=== PATIENT | female | born 1940 | race Caucasian/White ===

== ENCOUNTER 2017-03-20 22:34 | Emergency (ER) | payer MEDICARE, MEDICAID ==
[2017-03-20 22:56] VITALS: BP 143/71; PULSE 79; RESP 16; TEMP 98.7; O2SAT 100
[2017-03-20] MEDS ORDERED: Fluorescein 1 mg Ophthalmic Strip ONE (23:12)
--- NOTE | 2017-03-20 23:36 | ED PDOC ---
HPI: General Adult Time Seen by Provider: 03/20/17 23:04 Chief Complaint (Nursing): Eye Problem History Per: Patient, Family (daughter) Additional Complaint(s): As per daughter, pt has been c/o L eye pain and redness. States that pt. has had multiple surgeries to the L eye due to glaucoma and calcium deposits. States that 2 days ago pt. was rubbing her L eye then developed the pain. States that her vision is normally blurry and is slightly more blurry now. Denies head injury, complete visual loss. Past Medical History Reviewed: Historical Data, Nursing Documentation, Vital Signs Vital Signs: Last Vital Signs Temp 98.7 F 03/20/17 22:54 Pulse 79 03/20/17 22:54 Resp 16 03/20/17 22:54 BP 143/71 03/20/17 22:54 Pulse Ox 100 03/21/17 01:44 - Family History Family History: States: No Known Family Hx - Home Medications Home Medications: Ambulatory Orders Medication Instructions Recorded Tobramycin 0.3% [Tobrex] 1 appl OS Q8 #1 tube 03/21/17 - Allergies Allergies/Adverse Reactions: Allergies Allergy/AdvReac Type Severity Reaction Status Date / Time No Known Allergies Allergy Verified 03/20/17 22:54 Review of Systems ROS Statement: Except As Marked, All Systems Reviewed And Found Negative Eyes: Positive for: Pain, Conjunctivae Inflammation Physical Exam - Physical Exam Appears: Positive for: Well, Non-toxic, No Acute Distress Skin: Positive for: Normal Color, Warm. Negative for: Rash Eye Exam: Positive for: EOMI, PERRL, Conjunctival injection (L eye), Other (L white FB noted at 9 o'clock position; complete flouroscein uptake at that location). Negative for: Periorbital swelling, Periorbital tenderness - ECG O2 Sat by Pulse Oximetry: 100 - Progress ED Course And Treament: CT orbits w/o contrast: No acute findings. [address] Valiente [phone]. 0030 Tobrex eye ointment applied to L eye. [address] Tejada who agrees with care. Disposition - Clinical Impression Clinical Impression: Corneal abrasion - Patient ED Disposition Is Patient to be Admitted: No - Disposition Disposition: Routine/Home Disposition Time: 00:48 Condition: STABLE Additional Instructions: FOLLOW UP WITH DR. REYNA FOR FURTHER EVALUATION. APPLY TOBREX EYE OINTMENT Q8H X 7 DAYS Prescriptions: Tobramycin 0.3% [Tobrex] 1 appl OS Q8 #1 tube Instructions: Corneal Abrasion (ED) Forms: [facility] (Ecuadorean)
--- NOTE | 2017-03-20 23:53 | CT ---
EXAM: CT Orbits Without Intravenous Contrast CLINICAL HISTORY: 76 years old, female; Signs and symptoms; Visual changes or disturbances; Discomfort; Prior surgery; Surgery date: 6+ months; Surgery type: Multiple left eye corneal surgeries; Additional info: L eye with corneal abrasion TECHNIQUE: Axial computed tomography images of the orbits without intravenous contrast. All CT scans at this facility use one or more dose reduction techniques, viz.: automated exposure control; ma/kV adjustment per patient size (including targeted exams where dose is matched to indication; i.e. head); or iterative reconstruction technique. Coronal and sagittal reformatted images were created and reviewed. COMPARISON: No relevant prior studies available. FINDINGS: Limitations: Lack of intravenous contrast. Orbits: Unremarkable as visualized. No intra-or extraconal mass or fluid collection. Sinuses: Minimal mucosal thickening of maxillary sinuses. No air-fluid levels. Bones/joints: No acute fracture. No definite cortical destruction. Soft tissues: Dermal calcifications. Vasculature: Atherosclerotic disease of visualized arteries. IMPRESSION: 1.No acute findings. 2.Non-acute findings are described above.
[2017-03-21] MEDS ORDERED: Tobramycin 0.3% OPH OINT OS STA (00:39)
== END 2017-03-21 01:13 | disposition home or self-care (01) ==
LOC: H.ER 22:34
DX: S05.02XA Injury of conjunctiva and corneal abrasion without foreign body, left eye, initial encounter (principal); X58.XXXA Exposure to other specified factors, initial encounter; Y93.89 Activity, other specified; Y92.89 Other specified places as the place of occurrence of the external cause

== ENCOUNTER 2017-12-02 19:32 | Emergency (ER) | payer MEDICARE, MEDICAID ==
[2017-12-02 19:49] VITALS: RESP 16; O2SAT 100
--- NOTE | 2017-12-02 20:32 | CP.PCM.CON ---
History of Present Illness - History of Present Illness History of Present Illness: Podiatry Consult Note- Dr. Mock 77 y.o female with PMHx of DM Type 2, HTN, chronic LE edema, gastritis seen and evaluated in the ED for left 5th toe pain. Daughter is seen at bedside with mother, an nurse at [facility]. Daughter reports that mother had an infected 5th digit ulceration about 3 months ago and was treated with oral antibiotics for 10 days by mother's primary care physician. Reports that the infection diminished and the ulceration healed. Reports noticing the 5th digit changing in color in the last few days, becoming more purple, prompting the ED visitation. Patient's daughter reports that mother has a history of banging her foot. Pain with pressure. Denies nausea, shortness of breath, chest pain, chills , vomiting. Denies feeling fever. In the ED found to have low grade fever. PMH:DM Type 2, HTN, PVD with chronic LE edema, gastritis PSH: hysterectomy secondary to fibroids MEDS: see list ALL: NKDA FH: noncontributory SH:denies smoking, drinking or illicit drug use Past Patient History - Past Social History Smoking Status: Never Smoked - CARDIAC Hx Cardiac Disorders: Yes Hx Hypertension: Yes - HEENT Hx HEENT Problems: Yes Hx Cataracts: Yes Hx Glaucoma: Yes - ENDOCRINE/METABOLIC Hx Endocrine Disorders: Yes Hx Diabetes Mellitus Type 2: Yes - PSYCHIATRIC Hx Substance Use: No - SURGICAL HISTORY Hx Surgeries: Yes Hx Mastectomy: Yes Meds Home Medications: Home Medication List Medication Instructions Recorded Confirmed Type Ofloxacin [Ocuflox] 1 drop OS QID #5 ml 12/02/17 Rx Silver Sulfadiazine 1% 50 gm 1 applic TOP BID #1 jar 12/02/17 Rx [Silvadene 1% 50 gm] Allergies/Adverse Reactions: Allergies Allergy/AdvReac Type Severity Reaction Status Date / Time No Known Allergies Allergy Verified 12/02/17 19:45 Physical Exam - Constitutional Appears: Well, Non-toxic, No Acute Distress - Extremities Exam Extremities exam: Negative for: calf tenderness Additional comments: VASC: DP 1/4 and PT 1/4 bilaterally, CFT < 3 seconds x 10 digits, +2 pitting edema noted to the LE, temperature gradient warm to cool ORTHO: pain with palpation to the left 5th digit, MM is 4/5 in all four compartments dorsiflexion, plantarflexion, inversion and eversion NEURO: gross sensation intact, protective sensation diminished DERM: hypertrophic, hyperkeratotic lesion noted to the lateral aspect of left 5th digit at the PIPJ with underlying ulceration. Divya-skin is hyperpigmented, dark brown in color. Post debridement of hyperkeratotic lesion measures ulceration approximately 1 cm x .5 cm x .2 cm. Wound bed is pink in color. No necrotic tissue noted. Ulceration does not probe to bone. There is no erythema, no increase warmth, no flucatance or abscess noted. No streaking, no odor, no purulence. No active drainage noted No clinical signs of infection. Sausage 5th left digit. Discoloration does not appear vascular in nature, likely secondary to rubbing on shoes or trauma Results - Vital Signs Recent Vital Signs: Last Vital Signs Temp 99.2 F 12/02/17 19:45 Pulse 65 12/02/17 19:45 Resp 16 12/02/17 19:45 BP 116/69 12/02/17 19:45 Pulse Ox 100 12/02/17 19:45 - Labs Result Diagrams: 12/02/17 20:30 12/02/17 20:30 Assessment & Plan - Assessment and Plan (Free Text) Assessment: 77 y.o female with left 5th digit ulceration Plan: Patient examined and evaluated Discussed plan in detail with attending Dr. Mock X-rays reviewed- questionable periosteal reaction to middle or distal phalanx of left small digit with heterotropic calcifications or avulsion/chips fractures seen. Diffuse osteopenia. Multifocal degenerative joint changes seen throughout the left foot. Labs, chart, vitals reviewed- absent leukocytosis, afebrile No clinical signs of infection during this time, patient is stable per podiatry , will continue to follow patient as outpatient Hyperkeratotic lesion debrided using a pickup and #15 blade to the level of the ulceration at subcutaneous level. Ulceration is cleansed with betadine, silvadene applied, and dressed with gauze and cling Advised to change dressing daily. Do not get wet Dispense surgical shoe to offload pressure from ulceration WBAT in surgical shoe May need MRI in the future to r/o OM. Can be done as an outpatient May need vascular studies in the future if ulceration is nonhealing Patient will follow up in podiatry clinic with Dr. Mock for continued monitoring and care Pt will call for an appointment Thank you for allowing us to take part in patient's care
--- NOTE | 2017-12-02 20:52 | ED PDOC ---
Lower Extremity Pain/Injury Time Seen by Provider: 12/02/17 19:53 Chief Complaint (Nursing): Lower Extremity Problem/Injury Chief Complaint (Provider): Lower Extremity Problem/Injury History Per: Patient History/Exam Limitations: no limitations Onset/Duration Of Symptoms: Days Current Symptoms Are (Timing): Still Present Additional Complaint(s): 77 year old female presents to the emergency department with left fifth toe pain that started 1 week ago. Associated with swelling and darkened color of the toe. Patient does not remember if there was any trauma but there is a possibility. Low grade fever at home. A month ago the patient was on antibiotics for an infection on same foot that improved as well as opened wound that also healed. Denies any further medical complaints. Past Medical History Reviewed: Historical Data, Nursing Documentation, Vital Signs Vital Signs: Last Vital Signs Temp 99.2 F 12/02/17 19:45 Pulse 65 12/02/17 19:45 Resp 16 12/02/17 19:45 BP 116/69 12/02/17 19:45 Pulse Ox 100 12/02/17 19:45 - Medical History PMH: Diabetes, HTN - Surgical History Surgical History: No Surg Hx - Family History Family History: States: No Known Family Hx - Social History Current smoker - smoking cessation education provided: No Alcohol: None Drugs: Denies - Home Medications Home Medications: Ambulatory Orders Medication Instructions Recorded Tobramycin 0.3% [Tobrex] 1 appl OS Q8 #1 tube 03/21/17 Ofloxacin [Ocuflox] 1 drop OS QID #5 ml 12/02/17 Silver Sulfadiazine 1% 50 gm 1 applic TOP BID #1 jar 12/02/17 [Silvadene 1% 50 gm] - Allergies Allergies/Adverse Reactions: Allergies Allergy/AdvReac Type Severity Reaction Status Date / Time No Known Allergies Allergy Verified 12/02/17 19:45 Review of Systems ROS Statement: Except As Marked, All Systems Reviewed And Found Negative (As per HPI, otherwise negative) Musculoskeletal: Positive for: Other (Left fifth toe pain with swelling and darkened color) Physical Exam - Reviewed Nursing Documentation Reviewed: Yes Vital Signs Reviewed: Yes - Physical Exam Appears: Positive for: Non-toxic, No Acute Distress Extremity: Positive for: Normal ROM (Full ROM of the fifth toe. Slightly purple with diffuse edema), Tenderness (Tenderness to palpation at the dorsum of the left fifth toe and 3 mm circular yellow eschar lateral toe. ), Pedal Edema ( Pitting 3+), Capillary Refill (< 2 second. Warm with strong DP pulses. ). Negative for: Other (No discharge or tracking erythema. ) Neurologic/Psych: Positive for: Alert, Oriented (x3) - Laboratory Results Result Diagrams: 12/02/17 20:30 12/02/17 20:30 - ECG O2 Sat by Pulse Oximetry: 100 (RA) Pulse Ox Interpretation: Normal Medical Decision Making Medical Decision Making: Time: 2029 Initial impression: Left toe swelling and pain. Differential include but not limited to contusion, fracture, cellulitis, and osteomylitis. Initial plan: Lab work up Left 5 th digit foot x-ray Evaluated by podiatry resident. Pt stable for dc with f/u outpatient. Conservative management for now. Prior to discharge pt started to have LEFT eye redness. 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 Fluoroscein staining demonstrates Scribe Attestation: Documented by Olga Easton, acting as a scribe for Farheen Brady MD Provider Scribe Attestation: All medical record entries made by the Scribe were at my direction and personally dictated by me. I have reviewed the chart and agree that the record accurately reflects my personal performance of the history, physical exam, medical decision making, and the department course for this patient. I have also personally directed, reviewed, and agree with the discharge instructions and disposition. Disposition - Clinical Impression Clinical Impression: Toe contusion - Disposition Referrals: Podiatry Clinic [Outside] - 12/03/17 Gali Mock DPM [Medical Doctor] - Disposition: Routine/Home Disposition Time: 23:00 Condition: STABLE Prescriptions: Ofloxacin [Ocuflox] 1 drop OS QID #5 ml Silver Sulfadiazine 1% 50 gm [Silvadene 1% 50 gm] 1 applic TOP BID #1 jar Instructions: Corneal Abrasion (DC), Toe Injury (DC) Forms: [facility] (Czech)
[2017-12-02 20:56] LABS: BASO % 0.8 % (0.0-2.0); EOS # 0.2 K/uL (0.0-0.7); HEMOGLOBIN 12.4 g/dL (12.0-16.0); LYMPH # 1.1 K/uL (1.0-4.3); LYMPH % 23.8 % (20.0-40.0); MEAN CELL VOLUME 89.1 fl (81.0-99.0); MEAN CORPUSCULAR HEMOGLOBIN 29.2 pg (27.0-31.0); MEAN CORPUSCULAR HGB CONC 32.7 g/dL (33.0-37.0); MEAN PLATELET VOLUME 8.8 fl (7.2-11.7); MONO # 0.5 K/uL (0.0-0.8); MONO % 11.2 % (0.0-10.0); NEUT # 2.7 K/uL (1.8-7.0); NEUT % 59.2 % (50.0-75.0); NRBC % 0.2 % (0.0-0.0); RBC 4.24 Mil/uL (3.80-5.20); RED CELL DISTRIBUTION WIDTH 14.3 % (11.5-14.5); WHITE BLOOD COUNT 4.5 K/uL (4.8-10.8)
[2017-12-02 21:01] LABS: ALBUMIN 3.8 g/dL (3.5-5.0); CALCIUM 9.4 mg/dL (8.4-10.2)
[2017-12-02] MEDS ORDERED: Silver Sulfadiazine 1% CREAM (50 gm) ONE (21:51)
[2017-12-02] MEDS ORDERED: Tetracaine 0.5% Ophth 2 ML BOTTLE ONE (22:34)
[2017-12-02] MEDS ORDERED: PROPARACAINE/FLUORESCEIN SOD 100 DROP/5 ML BOTTLE ONE (22:36)
[2017-12-02 23:11] VITALS: BP 128/62; PULSE 71; TEMP 98.5
--- NOTE | 2017-12-03 07:40 | RAD ---
PROCEDURE: Left 5th digit/foot Radiographs. HISTORY: LEFT 5th toe swelling COMPARISON: None. FINDINGS: BONES: Diffuse osteopenia suggests osteoporosis. Small bony densities seen in the dorsal soft tissues at the level of the middle and distal phalanges of the left small digit appear relatively well corticated and may reflect either heterotopic soft tissue calcification or chronic avulsion or chip fractures. These are best seen in the lateral view of the left foot. In the oblique view, is difficult to exclude an element of periosteal reaction however at least the level of the distal or middle phalanx of the left small digit. Consider follow-up MRI for additional characterization. JOINTS: NormalModerate degenerative cortical sclerosis and joint space narrowing seen throughout the interphalangeal joints diffusely throughout the left foot as well as the 1st and 2nd minute tarsal phalangeal joints and the tarsal metatarsal and tarsal tarsal articulations diffusely. Lesser degenerative changes seen otherwise throughout the remaining joints of the left foot. . SOFT TISSUES: Diffuse soft tissue edema is appreciated throughout the left foot and is particularly prominent at the left ankle with vascular calcifications in the left ankle and foot soft tissues as well. OTHER FINDINGS: None. IMPRESSION: Question of periosteal reaction related to the middle or distal phalanx of the left small digit with heterotopic calcifications or avulsion/chip fractures seen likely chronic chronic basis at the dorsal soft tissues left small digit. Further clinical correlation is advised. MRI of the left foot focusing on the digits may be helpful further characterization. Clinically correlate further. Diffuse osteopenia suggests osteoporosis. Multifocal degenerative joint changes seen throughout the left foot. Diffuse soft tissue edema seen throughout the left foot as particularly prominent at the left ankle.
[2017-12-03] MEDS ORDERED: Silver Sulfadiazine 1% CREAM (50 gm) TOP SCH (09:00)
== END 2017-12-02 23:11 | disposition home or self-care (01) ==
LOC: H.ER 19:32
DX: L97.509 Non-pressure chronic ulcer of other part of unspecified foot with unspecified severity (principal); E11.9 Type 2 diabetes mellitus without complications; I10 Essential (primary) hypertension; Z90.710 Acquired absence of both cervix and uterus

== ENCOUNTER 2018-02-06 22:26 | Emergency (ER) | payer MEDICARE, MEDICAID ==
[2018-02-06 22:31] VITALS: BP 131/70; RESP 18
[2018-02-06 23:13] LABS: BASO % 0.6 % (0.0-2.0); EOS % 0.1 % (0.0-4.0); HEMOGLOBIN 12.2 g/dL (12.0-16.0); LYMPH # 0.2 K/uL (1.0-4.3); LYMPH % 4.3 % (20.0-40.0); MEAN CELL VOLUME 86.7 fl (81.0-99.0); MEAN CORPUSCULAR HEMOGLOBIN 28.8 pg (27.0-31.0); MEAN CORPUSCULAR HGB CONC 33.2 g/dL (33.0-37.0); MEAN PLATELET VOLUME 8.3 fl (7.2-11.7); MONO # 0.3 K/uL (0.0-0.8); MONO % 5.4 % (0.0-10.0); NEUT # 4.2 K/uL (1.8-7.0); NEUT % 89.6 % (50.0-75.0); PLATELET COUNT 187 K/uL (130-400); RBC 4.23 Mil/uL (3.80-5.20); RED CELL DISTRIBUTION WIDTH 13.5 % (11.5-14.5); WHITE BLOOD COUNT 4.7 K/uL (4.8-10.8)
[2018-02-06 23:26] LABS: INR 1.3 (0.9-1.2); PROTHROMBIN TIME 14.3 Seconds (9.8-13.1)
[2018-02-06 23:35] LABS: TROPONIN I 0.013 ng/mL (0.00-0.120)
[2018-02-06 23:37] LABS: ALBUMIN 3.9 g/dL (3.5-5.0); CALCIUM 9.6 mg/dL (8.4-10.2)
[2018-02-06 23:42] LABS: SQUAMOUS EPITHIAL 1 /hpf (0-5); URINE BACTERIA FEW (<OCC); URINE BILIRUBIN NEGATIVE (NEGATIVE); URINE BLOOD NEGATIVE (NEGATIVE); URINE CLARITY SLIGHTY-CLOUDY (Clear); URINE COLOR YELLOW (YELLOW); URINE GLUCOSE (UA) NEG (Normal); URINE LEUKOCYTE ESTERASE SMALL Leu/uL (Negative); URINE PROTEIN 100 mg/dL (NEGATIVE); URINE UROBILINOGEN 0.2-1.0 mg/dL (0.2-1.0)
[2018-02-06] MEDS ORDERED: cefTRIAXone (Rocephin) 1 gm Inj ONE (23:43)
[2018-02-06 23:51] LABS: VENOUS BLOOD GAS BASE EXCESS -1.9 mmol/L (0.0-2.0); VENOUS BLOOD GAS PCO2 35 mmHg (40-60); VENOUS BLOOD GAS PO2 59 mm/Hg (30-55); VENOUS BLOOD PH 7.41 (7.32-7.43)
[2018-02-06] MEDS ORDERED: Sodium Chloride 0.9% 250 ML IV STA (23:53)
--- NOTE | 2018-02-07 00:21 | ED PDOC ---
HPI: Fever Additional Comments: 77 y/o female with a PMHx of HTN, diabetes, peripheral vascualar disease, gastritis presents to the ED complaining of fever associated with chills, generalized weakness and urinary frequency. Daughter found a temperature this evening of 103. Denies any other infectious symptoms. PMD: Just retired and has not found a new one. Past Medical History Reviewed: Historical Data, Nursing Documentation, Vital Signs Vital Signs: Last Vital Signs Temp 98.6 F 02/07/18 00:22 Pulse 68 02/07/18 00:22 Resp 18 02/06/18 22:27 BP 131/70 02/06/18 22:27 Pulse Ox 96 02/07/18 00:29 - Medical History PMH: Anemia, Arthritis, Back Problems, Diabetes, Fractures, Hiatal Hernia, HTN, Osteoporosis - Surgical History Surgical History: Endoscopy - Family History Family History: States: Unknown Family Hx - Home Medications Home Medications: Ambulatory Orders Medication Instructions Recorded Tobramycin 0.3% [Tobrex] 1 appl OS Q8 #1 tube 03/21/17 Ofloxacin [Ocuflox] 1 drop OS QID #5 ml 12/02/17 Silver Sulfadiazine 1% 50 gm 1 applic TOP BID #1 jar 12/02/17 [Silvadene 1% 50 gm] Ciprofloxacin [Cipro] 1 tab PO BID #20 tab 02/06/18 - Allergies Allergies/Adverse Reactions: Allergies Allergy/AdvReac Type Severity Reaction Status Date / Time No Known Allergies Allergy Verified 12/02/17 19:45 Review of Systems ROS Statement: Except As Marked, All Systems Reviewed And Found Negative Constitutional: Positive for: Fever, Chills, Weakness Genitourinary Female: Positive for: Frequency Physical Exam - Reviewed Nursing Documentation Reviewed: Yes Vital Signs Reviewed: Yes - Physical Exam Appears: Positive for: No Acute Distress (tired appearing) Head Exam: Positive for: ATRAUMATIC, NORMOCEPHALIC Skin: Positive for: Warm, Dry ENT: Positive for: Normal ENT Inspection, Other (tachy mucous membranes) Cardiovascular/Chest: Positive for: Regular Rate, Rhythm. Negative for: Murmur Respiratory: Positive for: Normal Breath Sounds. Negative for: Accessory Muscle Use, Rales, Respiratory Distress Gastrointestinal/Abdominal: Positive for: Normal Exam, Soft. Negative for: Tenderness, Mass, Guarding, Rebound Back: Negative for: L CVA Tenderness, R CVA Tenderness Extremity: Positive for: Other (bilateral lower leg edema. Lesion on her left fifth toe that is being followed by a construction analyst. No discharge, no erythema) Lymphatic: Negative for: Adenopathy Neurologic/Psych: Positive for: Alert. Negative for: Motor/Sensory Deficits - Laboratory Results Result Diagrams: 02/06/18 23:00 02/06/18 23:00 - ECG O2 Sat by Pulse Oximetry: 96 (RA) Pulse Ox Interpretation: Normal Medical Decision Making Medical Decision Making: Time: 2300 Impression: Febrile illness Differentials include but not limited to sepsis, UTI, polynephritis, dehydration , viral syndrome, and pneumonia. Plan: -- Type and Screen -- EKG -- B-Type Natriuretic -- CMP -- Troponin I -- CBC with differentials -- PTT -- Prothrombin Time -- Blood Culture -- Urine Culture -- IV Insertion -- Glucose, Blood, POC Time: 2353 -- Urinalysis: c/w UTI -- Labs otherwise do not demonstrate sepsis. Reviewed elevated BUN/Cr with daughter, who reports findings are chronic. -- Sodium Chloride IV 250 mls/hr -- [Rocephin 1 gm] Sodium Chloride 0.9% 100 ml IV Advised f/u with PMD without fail 2-3 days and nephrology for further evaluation BUN/Cr. Scribe Attestation: Documented by Edilson Wells acting as a scribe for Dr. Farheen Brady. Provider Scribe Attestation: All medical record entries made by the Scribe were at my direction and personally dictated by me. I have reviewed the chart and agree that the record accurately reflects my personal performance of the history, physical exam, medical decision making, and the department course for this patient. I have also personally directed, reviewed, and agree with the discharge instructions and disposition. Disposition - Clinical Impression Clinical Impression: UTI (urinary tract infection), Fever in adult - Disposition Referrals: Laverne Flynn MD [Staff Provider] - 02/07/18 (VISIT DR FLYNN IN 1-2 DAYS FOR REEVALUATION) Disposition: Routine/Home Disposition Time: 00:00 Condition: STABLE Prescriptions: Ciprofloxacin [Cipro] 1 tab PO BID #20 tab Instructions: Urinary Tract Infections in Adults Forms: [facility] [facility] (Uzbek)
[2018-02-07 00:23] VITALS: PULSE 68; TEMP 98.6
[2018-02-07 00:24] VITALS: O2SAT 96
[2018-02-07 01:28] LABS: ANISOCYTOSIS SLIGHT; BANDS 2 % (0-2); HYPOCHROMIC SLIGHT; LYMPHOCYTE 3 % (20-50); MONOCYTE 4 % (0-10); NEUTROPHIL 91 % (42-75); PLATELET ESTIMATE NORMAL (NORMAL); TOTAL CELLS COUNTED 100
--- NOTE | 2018-02-08 11:09 | CARD ---
APPROVED REPORT Date of service: 02/06/2018 EKG Measurement Heart [id number] <Conclusion> Normal sinus rhythm Left axis deviation Abnormal ECG
== END 2018-02-07 01:04 | disposition home or self-care (01) ==
LOC: H.ER 22:26
DX: N39.0 Urinary tract infection, site not specified (principal); R50.9 Fever, unspecified; E11.9 Type 2 diabetes mellitus without complications; I10 Essential (primary) hypertension
CPT/HCPCS: 80053; 81003; 82803; 82948; 83880; 84484; 85025; 85610; 85730; 86850; 86900; 87040; 87086; 93005; 96365; 99283; J0696; J7030

== ENCOUNTER 2018-11-18 14:12 | Inpatient (IN) | payer MEDICARE, MEDICAID ==
--- NOTE | 2018-11-18 14:46 | ED PDOC ---
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 Patient was reaching for object in closet when she fell and injured left hip. She is unable to stand and unable to move left hip secondary to pain. It is unclear if patient hit her head or had LOC. Patient denies headache and dizziness. PMD: Laverne Flynn Past Medical History Reviewed: Historical Data, Nursing Documentation, Vital Signs Vital Signs: Last Vital Signs Temp 97.9 F 11/18/18 14:15 Pulse 74 11/18/18 14:15 Resp 20 11/18/18 14:15 BP 128/57 L 11/18/18 14:15 Pulse Ox 97 11/18/18 14:15 Primary Care Provider: Laverne Flynn - Medical History PMH: Anemia, Arthritis, Back Problems, Diabetes, Fractures, Hiatal Hernia, HTN, Osteoporosis Other PMH: Breast CA - Surgical History Surgical History: Endoscopy - Family History Family History: States: Unknown Family Hx - Home Medications Home Medications: Ambulatory Orders Medication Instructions Recorded Tobramycin 0.3% [Tobrex] 1 appl OS Q8 #1 tube 03/21/17 Ofloxacin [Ocuflox] 1 drop OS QID #5 ml 12/02/17 Silver Sulfadiazine 1% 50 gm 1 applic TOP BID #1 jar 12/02/17 [Silvadene 1% 50 gm] Ciprofloxacin [Cipro] 1 tab PO BID #20 tab 02/06/18 - Allergies Allergies/Adverse Reactions: Allergies Allergy/AdvReac Type Severity Reaction Status Date / Time No Known Allergies Allergy Verified 12/02/17 19:45 Review of Systems ROS Statement: Except As Marked, All Systems Reviewed And Found Negative Musculoskeletal: Positive for: Other (left hip pain) Neurological: Negative for: Headache, Dizziness Physical Exam - Reviewed Nursing Documentation Reviewed: Yes Vital Signs Reviewed: Yes - Physical Exam Appears: Positive for: No Acute Distress Skin: Positive for: Normal Color, Warm, Dry Eye Exam: Positive for: Normal appearance, EOMI, PERRL Neck: Positive for: Normal (and nontender), Painless ROM, Supple Cardiovascular/Chest: Positive for: Regular Rate, Rhythm. Negative for: Murmur Respiratory: Positive for: Normal Breath Sounds. Negative for: Respiratory Distress Gastrointestinal/Abdominal: Positive for: Normal Exam, Soft. Negative for: Tenderness Back: Positive for: Other (no spinal tenderness or deformity) Extremity: Positive for: Other (left hip tenderness, inguinal area with shortening and external rotation, left lower extremity pain on ROM) Neurological/Psych: Positive for: Awake, Alert, Oriented (x3). Negative for: Motor/Sensory Deficits Comments: HEAD: small ecchymosis to the left frontal area, no palpable fracture - Laboratory Results Result Diagrams: 11/18/18 14:30 11/18/18 15:00 - ECG O2 Sat by Pulse Oximetry: 97 (RA) Pulse Ox Interpretation: Normal Medical Decision Making Medical Decision Making: Time: 1428 --Suspect left hip fracture will obtain imaging and CT head. Scribe Attestation: Documented by Ritu Varma, acting as a scribe for Naveed Lima MD. Provider Scribe Attestation: All medical record entries made by the Scribe were at my direction and personally dictated by me. I have reviewed the chart and agree that the record accurately reflects my personal performance of the history, physical exam, medical decision making, and the department course for this patient. I have also personally directed, reviewed, and agree with the discharge instructions and disposition. Disposition - Clinical Impression Clinical Impression: Hip fracture, Diabetes mellitus, Hypertension, Renal insufficiency - Patient ED Disposition Is Patient to be Admitted: Yes - Disposition Referrals: Laverne Flynn MD [Primary Care Provider] - Disposition Time: 15:45 Condition: FAIR Forms: [facility] (Lithuanian) - Pt Status Changed To: Hospital Disposition Of: Inpatient - Admit Certification Admit to Inpatient:: After my assessment, the patient will require hospitalization for at least two midnights. This is because of the severity of symptoms shown, intensity of services needed, and/or the medical risk in this patient being treated as an outpatient. - POA Present On Arrival: None
[2018-11-18 15:01] LABS: BASO % 0.3 % (0.0-2.0); EOS # 0.2 K/uL (0.0-0.7); HEMOGLOBIN 12.5 g/dL (12.0-16.0); LYMPH # 0.6 K/uL (1.0-4.3); MEAN CELL VOLUME 94.1 fl (81.0-99.0); MEAN CORPUSCULAR HEMOGLOBIN 30.4 pg (27.0-31.0); MEAN CORPUSCULAR HGB CONC 32.3 g/dL (33.0-37.0); MEAN PLATELET VOLUME 9.5 fl (7.2-11.7); MONO # 0.4 K/uL (0.0-0.8); MONO % 2.4 % (0.0-10.0); NEUT # 14.5 K/uL (1.8-7.0); NEUT % 92.3 % (50.0-75.0); NRBC % 0.1 % (0.0-0.0); PLATELET COUNT 170 K/uL (130-400); RBC 4.11 Mil/uL (3.80-5.20); WHITE BLOOD COUNT 15.7 K/uL (4.8-10.8)
[2018-11-18 15:06] LABS: INR 1.1; PROTHROMBIN TIME 12.8 Seconds (9.8-13.1)
--- NOTE | 2018-11-18 15:32 | CT ---
Date of service: 11/18/2018 PROCEDURE: CT HEAD WITHOUT CONTRAST. HISTORY: r/o bleed COMPARISON: None available. TECHNIQUE: Axial computed tomography images were obtained through the head/brain without intravenous contrast. Radiation dose: Total exam DLP = 904.47 mGy-cm. This CT exam was performed using one or more of the following dose reduction techniques: Automated exposure control, adjustment of the mA and/or kV according to patient size, and/or use of iterative reconstruction technique. FINDINGS: HEMORRHAGE: No intracranial hemorrhage. BRAIN: Good corticomedullary differentiation is seen. Proportional, diffuse expansion of the ventriculosulcal and cisternal spaces is appreciated with white matter lucency compatible with diffuse cerebral atrophy and chronic microangiopathy. No suspicious extra-axial fluid collection is identified and the midline brain anatomy appears grossly nonfocal as imaged. There is no mass effect throughout. VENTRICLES: Unremarkable. No hydrocephalus. CALVARIUM: Unremarkable. PARANASAL SINUSES: Unremarkable as visualized. No significant inflammatory changes. MASTOID AIR CELLS: Unremarkable as visualized. No inflammatory changes. OTHER FINDINGS: None. IMPRESSION: No definite acute intracranial findings. Mild to moderate age-related neuro degenerative changes are appreciated which appear age-appropriate.
[2018-11-18 15:34] LABS: ALB/GLOB RATIO 1.1 (1.0-2.1); ALBUMIN 4.2 g/dL (3.5-5.0)
[2018-11-18] MEDS ORDERED: Sodium Chloride 0.9% 1,000 ML IV STA (15:38)
--- NOTE | 2018-11-18 15:43 | RAD ---
Date of service: 11/18/2018 PROCEDURE: CHEST RADIOGRAPH, 1 VIEW HISTORY: trauma COMPARISON: None available. FINDINGS: LUNGS: Clear. PLEURA: No pneumothorax or pleural fluid seen. CARDIOVASCULAR: Atherosclerotic calcification and mural plaque present. Findings are seen throughout the aorta which is both tortuous and non aneurysmal. No radiographic findings to suggest acute or significant cardiovascular disease. OSSEOUS STRUCTURES: No significant abnormalities. VISUALIZED UPPER ABDOMEN: Normal. OTHER FINDINGS: None. IMPRESSION: No active disease.
--- NOTE | 2018-11-18 15:45 | RAD ---
PROCEDURE: Left Hip X-ray Radiographs. HISTORY: trauma COMPARISON: None. TECHNIQUE: 2 views obtained. FINDINGS: BONES: Impacted, comminuted inter trochanteric fracture in varus deformity. JOINTS: Preserved femoral acetabular relationship. SOFT TISSUES: Normal. OTHER FINDINGS: None. IMPRESSION: Acute, comminuted inter trochanteric fracture proximal left femur.
[2018-11-18 15:54] LABS: ANISOCYTOSIS SLIGHT; EOSINOPHIL 1 % (0-7); LYMPHOCYTE 6 % (20-50); MONOCYTE 3 % (0-10); NEUTROPHIL 90 % (42-75); OVALOCYTES SLIGHT; PLATELET ESTIMATE NORMAL (NORMAL); TOTAL CELLS COUNTED 100
[2018-11-18] MEDS ORDERED: Morphine 4 MG/ML VIAL ONE (16:02)
[2018-11-18] MEDS: Acetaminophen IV 1,000 MG in IV SUPPLIES 0 ML IVPB SCH ×2 (17:12→22:05)
[2018-11-18] MEDS ORDERED: Tmp-Smz 800 mg-160 mg DS Tab PO STA (17:54)
[2018-11-18 18:34] LABS: SQUAMOUS EPITHIAL 3 /hpf (0-5); URINE BACTERIA RARE (<OCC); URINE BILIRUBIN NEGATIVE (NEGATIVE); URINE BLOOD NEGATIVE (NEGATIVE); URINE CLARITY SLIGHTY-CLOUDY (Clear); URINE COLOR YELLOW (YELLOW); URINE GLUCOSE (UA) NEG (NEGATIVE); URINE LEUKOCYTE ESTERASE SMALL Leu/uL (Negative); URINE PROTEIN 100 mg/dL (NEGATIVE); URINE UROBILINOGEN 0.2-1.0 mg/dL (0.2-1.0)
--- NOTE | 2018-11-18 20:10 | CP.PCM.CON ---
History of Present Illness - History of Present Illness History of Present Illness: THE PATIENT IS A 78 YEAR OLD FEMALE WHO FELL WHILE REACHING FOR SOMETHING IN THE CLOSET AND SUSTAINED A LEFT FEMUR FRACTURE. I WAS ASKED TO SEE HER PRE- OPERATIVELY BY DR SANDOVAL. SHE DENIES CHEST PAIN, SOB, PALPITATIONS OR SYNCOPE. SHE HAS A HISTORY OF HYPERTENSION, TYPE I DM, RENAL FAILURE AND BREAST CANCER. THE DAUGHTER STATES THAT HER BASELINE CR IS IN THE LOW 2 RANGE. HER BREAST CANCER WAS MORE THAN FIVE YEARS AGO AND SHE RECEIVED CHEMOTHERAPY. Past Patient History - Infectious Disease Hx of Infectious Diseases: None - Past Social History Smoking Status: Never Smoked - CARDIAC Hx Hypertension: Yes - HEENT Hx HEENT Problems: Yes Hx Cataracts: Yes Hx Glaucoma: Yes Other/Comment: Hx diabetic retinopathy and bleeding - ENDOCRINE/METABOLIC Hx Endocrine Disorders: Yes Hx Diabetes Mellitus Type 2: Yes - HEMATOLOGICAL/ONCOLOGICAL Hx Anemia: Yes - INTEGUMENTARY Hx Dermatological Problems: No - MUSCULOSKELETAL/RHEUMATOLOGICAL Hx Arthritis: Yes Hx Fractures: Yes Hx Osteoporosis: Yes - GASTROINTESTINAL Hx Gastrointestinal Disorders: Yes Hx Gastroesophageal Reflux: Yes Other/Comment: 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) - GENITOURINARY/GYNECOLOGICAL Hx Genitourinary Disorders: Yes Hx Urinary Tract Infection: Yes Other/Comment: Uterine fibriods - PSYCHIATRIC Hx Psychophysiologic Disorder: No Hx Substance Use: No - SURGICAL HISTORY Hx Eye Surgery: Yes - ANESTHESIA Hx Anesthesia: Yes Meds Allergies/Adverse Reactions: Allergies Allergy/AdvReac Type Severity Reaction Status Date / Time No Known Allergies Allergy Verified 12/02/17 19:45 - Medications Medications: Current Medications Sodium Chloride (Sodium Chloride 0.9%) 1,000 mls @ 125 mls/hr IV .Q8H STA Stop: 11/18/18 23:37 Last Admin: 11/18/18 16:01 Dose: 125 mls/hr Acetaminophen 1,000 mg/ IV (SUPPLIES) 100 mls @ 400 mls/hr IVPB Q6H [facility]; Protocol Stop: 11/19/18 10:44 Last Admin: 11/18/18 17:12 Dose: 400 mls/hr Physical Exam - Respiratory Exam Respiratory Exam: Clear to Auscultation Bilateral - Cardiovascular Exam Cardiovascular Exam: REGULAR RHYTHM, +S1, +S2, Systolic Murmur - Extremities Exam Additional comments: MILD LE EDEMA - Additional Findings Additional findings: EKG NSR, LAD, FIRST DEGREE AV BLOCK CXR NAD ECHO WITH GOOD LV SYSTOLIC FUNCTION WITH LVEF ~ 65%, LA-RV-RA NORMAL IN SIZE, AV MILDLY CALCIFIC BUT APPEARS TO OPEN WELL VISUALLY, MV THICKENED BUT NOT STENOTIC, TRACE TO MILD AR AND MR, MODERATE TR WITH PASP OF ~ 52 MMHG BUN/CR 75/2.5 K+ 4.4 H/H Results - Vital Signs Recent Vital Signs: Last Vital Signs Temp 98 F 11/18/18 18:15 Pulse 72 11/18/18 18:15 Resp 17 11/18/18 18:15 BP 134/68 11/18/18 18:15 Pulse Ox 99 11/18/18 18:15 - Labs Result Diagrams: 11/18/18 14:30 11/18/18 15:00 Labs: Laboratory Results - last 24 hr 11/18/18 11/18/18 11/18/18 14:26 14:30 14:30 WBC 15.7 H D RBC 4.11 Hgb 12.5 Hct 38.7 MCV 94.1 D MCH 30.4 MCHC 32.3 L RDW 15.0 H Plt Count 170 MPV 9.5 Neut % (Auto) 92.3 H Lymph % (Auto) 4.0 L Sullivan % (Auto) 2.4 Eos % (Auto) 1.0 Baso % (Auto) 0.3 Neut # (Auto) 14.5 H Lymph # (Auto) 0.6 L Sullivan # (Auto) 0.4 Eos # (Auto) 0.2 Baso # (Auto) 0.0 Neutrophils % (Manual) 90 H Lymphocytes % (Manual) 6 L Monocytes % (Manual) 3 Eosinophils % (Manual) 1 Platelet Estimate Normal Anisocytosis (manual) Slight Ovalocytes Slight PT 12.8 INR 1.1 Sodium Potassium Chloride Carbon Dioxide Anion Gap BUN Creatinine Est GFR ( Amer) Est GFR (Non-Af Amer) POC Glucose (mg/dL) 90 Random Glucose Calcium Total Bilirubin AST ALT Alkaline Phosphatase Total Protein Albumin Globulin Albumin/Globulin Ratio Urine Color Urine Clarity Urine pH Ur Specific Barrett Urine Protein Urine Glucose (UA) Urine Ketones Urine Blood Urine Nitrate Urine Bilirubin Urine Urobilinogen Ur Leukocyte Esterase Urine RBC (Auto) Urine Microscopic WBC Ur Squamous Epith Cells Urine Bacteria 11/18/18 11/18/18 15:00 18:24 WBC RBC Hgb Hct MCV MCH MCHC RDW Plt Count MPV Neut % (Auto) Lymph % (Auto) Sullivan % (Auto) Eos % (Auto) Baso % (Auto) Neut # (Auto) Lymph # (Auto) Sullivan # (Auto) Eos # (Auto) Baso # (Auto) Neutrophils % (Manual) Lymphocytes % (Manual) Monocytes % (Manual) Eosinophils % (Manual) Platelet Estimate Anisocytosis (manual) Ovalocytes PT INR Sodium 137 Potassium 4.4 Chloride 100 Carbon Dioxide 23 Anion Gap 18 BUN 75 H Creatinine 2.5 H Est GFR ( Amer) 22 Est GFR (Non-Af Amer) 19 POC Glucose (mg/dL) Random Glucose 87 Calcium 10.0 Total Bilirubin 0.9 AST 57 H D ALT 22 Alkaline Phosphatase 102 Total Protein 8.0 Albumin 4.2 Globulin 3.8 Albumin/Globulin Ratio 1.1 Urine Color Yellow Urine Clarity Slighty-cloudy Urine pH 7.0 Ur Specific Barrett 1.013 Urine Protein 100 Urine Glucose (UA) Neg Urine Ketones Negative Urine Blood Negative Urine Nitrate Negative Urine Bilirubin Negative Urine Urobilinogen 0.2-1.0 Ur Leukocyte Esterase Small Urine RBC (Auto) 1 Urine Microscopic WBC 3 Ur Squamous Epith Cells 3 Urine Bacteria Rare Assessment & Plan - Assessment and Plan (Free Text) Assessment: FALL WITH LEFT FEMUR FRACTURE HYPERTENSION DM RENAL FAILURE. DEHYDRATION? Plan: THE PATIENT IS CLEARED FOR SURGERY FROM THE CARDIAC VIEWPOINT CONTINUE IV FLUIDS AND CARVEDILOL. BMP IN AM I SPOKE TO DR SANDOVAL WHO WILL ENTER THE PATIENT'S OTHER ORDERS AND WILL MAKE THE DECISION ON THE TIMING OF HER SURGERY
[2018-11-18] MEDS ORDERED: Artificial Tears Opht Soln OU PRN (21:57)
[2018-11-18] MEDS: Dextrose 5%/0.45% NS 1,000 ML IV SCH (22:10)
[2018-11-19] MEDS ORDERED: Pneumococcal 23-Valent Vaccine IM ONE (06:00)
[2018-11-19 06:23] LABS: BASO % 0.2 % (0.0-2.0); EOS % 0.2 % (0.0-4.0); HEMOGLOBIN 11.1 g/dL (12.0-16.0); LYMPH # 0.4 K/uL (1.0-4.3); LYMPH % 4.4 % (20.0-40.0); MEAN CORPUSCULAR HEMOGLOBIN 30.4 pg (27.0-31.0); MEAN CORPUSCULAR HGB CONC 32.4 g/dL (33.0-37.0); MEAN PLATELET VOLUME 9.9 fl (7.2-11.7); MONO # 0.2 K/uL (0.0-0.8); MONO % 2.6 % (0.0-10.0); NEUT # 8.5 K/uL (1.8-7.0); NEUT % 92.6 % (50.0-75.0); RBC 3.67 Mil/uL (3.80-5.20); WHITE BLOOD COUNT 9.2 K/uL (4.8-10.8)
[2018-11-19 06:31] LABS: ALB/GLOB RATIO 1.1 (1.0-2.1); ALBUMIN 3.4 g/dL (3.5-5.0); CALCIUM 9.1 mg/dL (8.4-10.2)
--- NOTE | 2018-11-19 08:09 | CP.PCM.HP ---
History of Present Illness - History of Present Illness History of Present Illness: CC: Mechanical Fall and Left Hip Fracture History of Present Illness: A 78 years old female with a history of diabetes, hypertension and breast cancer had a mechanical fall when she fractured left hip, intertrochanteric. Complaining of severe pain 8 to 10 x 10 partially this pain medication. Patient is scheduled for or ORIF today, and cardiology has cleared the patient with acceptable risk. As per support teacher transthoracic echo is normal except mild valvular regurg. Currently patient has no chest pain, shortness of breath, palpitation, lightheadedness, cough, fever or chills. In the ER blood work patient had presented BUN and creatinine above baseline, and patient is hydrated overnight with some improvement with a creatinine to almost baseline. Discussed with daughterKeyona about intermediate risk associated with surgery given patient's age and comorbidities. Postop I recommend patient to be observed 24 hours in ICU, and postop Troponin and EKG. Present on Admission - Present on Admission Any Indicators Present on Admission: No Review of Systems - Review of Systems All systems: reviewed and no additional remarkable complaints except Review of Systems: As per HPI Past Patient History - Infectious Disease Hx of Infectious Diseases: None - Past Medical History & Family History Past Medical History?: Yes Past Family History: Reviewed and not pertinent - Past Social History Smoking Status: Never Smoked Alcohol: None Drugs: Denies - CARDIAC Hx Hypertension: Yes - PULMONARY Hx Respiratory Disorders: No - NEUROLOGICAL Hx Neurological Disorder: No - HEENT Hx HEENT Problems: Yes Hx Cataracts: Yes Hx Glaucoma: Yes Other/Comment: Hx diabetic retinopathy and bleeding - RENAL Hx Chronic Kidney Disease: No - ENDOCRINE/METABOLIC Hx Endocrine Disorders: Yes Hx Diabetes Mellitus Type 2: Yes - HEMATOLOGICAL/ONCOLOGICAL Hx Anemia: Yes - INTEGUMENTARY Hx Dermatological Problems: No - MUSCULOSKELETAL/RHEUMATOLOGICAL Hx Arthritis: Yes Hx Fractures: Yes Hx Osteoporosis: Yes - GASTROINTESTINAL Hx Gastrointestinal Disorders: Yes Hx Gastroesophageal Reflux: Yes Other/Comment: 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) - GENITOURINARY/GYNECOLOGICAL Hx Genitourinary Disorders: Yes Hx Urinary Tract Infection: Yes Other/Comment: Uterine fibriods - PSYCHIATRIC Hx Psychophysiologic Disorder: No Hx Substance Use: No - SURGICAL HISTORY Hx Eye Surgery: Yes - ANESTHESIA Hx Anesthesia: Yes Meds Allergies/Adverse Reactions: Allergies Allergy/AdvReac Type Severity Reaction Status Date / Time No Known Allergies Allergy Verified 05/17/18 19:45 Physical Exam - Constitutional Appears: Well, No Acute Distress - Head Exam Head Exam: ATRAUMATIC, NORMAL INSPECTION, NORMOCEPHALIC - Eye Exam Eye Exam: EOMI, Normal appearance, PERRL Pupil Exam: NORMAL ACCOMODATION, PERRL - ENT Exam ENT Exam: Mucous Membranes Moist, Normal Exam - Neck Exam Neck exam: Positive for: Normal Inspection - Respiratory Exam Respiratory Exam: Clear to Auscultation Bilateral, NORMAL BREATHING PATTERN - Cardiovascular Exam Cardiovascular Exam: REGULAR RHYTHM, +S1, +S2 - GI/Abdominal Exam GI & Abdominal Exam: Normal Bowel Sounds, Soft. absent: Tenderness - Exam Exam: NORMAL INSPECTION External exam: NORMAL EXTERNAL EXAM Speculum exam: NORMAL SPECULUM EXAM Bimanual exam: NORMAL BIMANUAL EXAM - Extremities Exam Extremities exam: Positive for: normal inspection - Back Exam Back exam: NORMAL INSPECTION - Neurological Exam Neurological exam: Alert, CN II-XII Intact, Normal Gait, Oriented x3, Reflexes Normal - Psychiatric Exam Psychiatric exam: Normal Affect, Normal Mood - Skin Skin Exam: Dry, Intact, Normal Color, Warm Results - Vital Signs Recent Vital Signs: Last Vital Signs Temp 98 F 11/19/18 00:10 Pulse 79 11/19/18 00:10 Resp 18 11/19/18 00:10 BP 132/71 11/19/18 00:10 Pulse Ox 96 11/19/18 00:10 - Labs Result Diagrams: 11/19/18 05:00 11/19/18 05:00 Labs: Laboratory Results - last 24 hr 11/18/18 11/18/18 11/18/18 14:26 14:30 14:30 WBC 15.7 H D RBC 4.11 Hgb 12.5 Hct 38.7 MCV 94.1 D MCH 30.4 MCHC 32.3 L RDW 15.0 H Plt Count 170 MPV 9.5 Neut % (Auto) 92.3 H Lymph % (Auto) 4.0 L Coffee % (Auto) 2.4 Eos % (Auto) 1.0 Baso % (Auto) 0.3 Neut # (Auto) 14.5 H Lymph # (Auto) 0.6 L Coffee # (Auto) 0.4 Eos # (Auto) 0.2 Baso # (Auto) 0.0 Total Counted Neutrophils % (Manual) 90 H Band Neutrophils % Lymphocytes % (Manual) 6 L Reactive Lymphs % Monocytes % (Manual) 3 Eosinophils % (Manual) 1 Basophils % (Manual) Metamyelocytes % Myelocytes % Promyelocytes % Blast Cells % Plasma Cell % (Manual) Nucleated RBC % Hypersegmented Polys Smudge Cells Toxic Granulation Dohle Bodies Xu Rods Platelet Estimate Normal Plt Clumps, EDTA Large Platelets Giant Platelets RBC Morphology Polychromasia Hypochromasia (manual) Poikilocytosis (manual Basophilic Stippling Anisocytosis (manual) Slight Microcytosis (manual) Macrocytosis (manual) Spherocytes Sickle Cells Target Cells Tear Drop Cells Ovalocytes Slight Stomatocytes Helmet Cells Rios-[place] Bodies Omari Cells Acanthocytes (Spur) Rouleaux Schistocytes PT 12.8 INR 1.1 Sodium Potassium Chloride Carbon Dioxide Anion Gap BUN Creatinine Est GFR ( Amer) Est GFR (Non-Af Amer) POC Glucose (mg/dL) 90 Random Glucose Calcium Total Bilirubin AST ALT Alkaline Phosphatase Total Protein Albumin Globulin Albumin/Globulin Ratio TSH 3rd Generation Urine Color Urine Clarity Urine pH Ur Specific [place] Urine Protein Urine Glucose (UA) Urine Ketones Urine Blood Urine Nitrate Urine Bilirubin Urine Urobilinogen Ur Leukocyte Esterase Urine RBC (Auto) Urine Microscopic WBC Ur Squamous Epith Cells Urine Bacteria Blood Type Antibody Screen BBK History Checked 11/18/18 11/18/18 11/18/18 15:00 18:24 20:01 WBC RBC Hgb Hct MCV MCH MCHC RDW Plt Count MPV Neut % (Auto) Lymph % (Auto) Coffee % (Auto) Eos % (Auto) Baso % (Auto) Neut # (Auto) Lymph # (Auto) Coffee # (Auto) Eos # (Auto) Baso # (Auto) Total Counted Neutrophils % (Manual) Band Neutrophils % Lymphocytes % (Manual) Reactive Lymphs % Monocytes % (Manual) Eosinophils % (Manual) Basophils % (Manual) Metamyelocytes % Myelocytes % Promyelocytes % Blast Cells % Plasma Cell % (Manual) Nucleated RBC % Hypersegmented Polys Smudge Cells Toxic Granulation Dohle Bodies Xu Rods Platelet Estimate Plt Clumps, EDTA Large Platelets Giant Platelets RBC Morphology Polychromasia Hypochromasia (manual) Poikilocytosis (manual Basophilic Stippling Anisocytosis (manual) Microcytosis (manual) Macrocytosis (manual) Spherocytes Sickle Cells Target Cells Tear Drop Cells Ovalocytes Stomatocytes Helmet Cells Rios-[place] Bodies Omari Cells Acanthocytes (Spur) Rouleaux Schistocytes PT INR Sodium 137 Potassium 4.4 Chloride 100 Carbon Dioxide 23 Anion Gap 18 BUN 75 H Creatinine 2.5 H Est GFR ( Amer) 22 Est GFR (Non-Af Amer) 19 POC Glucose (mg/dL) Random Glucose 87 Calcium 10.0 Total Bilirubin 0.9 AST 57 H D ALT 22 Alkaline Phosphatase 102 Total Protein 8.0 Albumin 4.2 Globulin 3.8 Albumin/Globulin Ratio 1.1 TSH 3rd Generation Urine Color Yellow Urine Clarity Slighty-cloudy Urine pH 7.0 Ur Specific [place] 1.013 Urine Protein 100 Urine Glucose (UA) Neg Urine Ketones Negative Urine Blood Negative Urine Nitrate Negative Urine Bilirubin Negative Urine Urobilinogen 0.2-1.0 Ur Leukocyte Esterase Small Urine RBC (Auto) 1 Urine Microscopic WBC 3 Ur Squamous Epith Cells 3 Urine Bacteria Rare Blood Type B POSITIVE Antibody Screen Negative BBK History Checked Patient has bt 11/18/18 11/19/18 11/19/18 21:07 05:00 05:00 WBC 9.2 RBC 3.67 L Hgb 11.1 L Hct 34.4 MCV 94.0 MCH 30.4 MCHC 32.4 L RDW 15.0 H Plt Count 156 MPV 9.9 Neut % (Auto) 92.6 H Lymph % (Auto) 4.4 L Coffee % (Auto) 2.6 Eos % (Auto) 0.2 Baso % (Auto) 0.2 Neut # (Auto) 8.5 H Lymph # (Auto) 0.4 L Coffee # (Auto) 0.2 Eos # (Auto) 0.0 Baso # (Auto) 0.0 Total Counted Cancelled Neutrophils % (Manual) Cancelled Band Neutrophils % Cancelled Lymphocytes % (Manual) Cancelled Reactive Lymphs % Cancelled Monocytes % (Manual) Cancelled Eosinophils % (Manual) Cancelled Basophils % (Manual) Cancelled Metamyelocytes % Cancelled Myelocytes % Cancelled Promyelocytes % Cancelled Blast Cells % Cancelled Plasma Cell % (Manual) Cancelled Nucleated RBC % Cancelled Hypersegmented Polys Cancelled Smudge Cells Cancelled Toxic Granulation Cancelled Dohle Bodies Cancelled Xu Rods Cancelled Platelet Estimate Cancelled Plt Clumps, EDTA Cancelled Large Platelets Cancelled Giant Platelets Cancelled RBC Morphology Cancelled Polychromasia Cancelled Hypochromasia (manual) Cancelled Poikilocytosis (manual Cancelled Basophilic Stippling Cancelled Anisocytosis (manual) Cancelled Microcytosis (manual) Cancelled Macrocytosis (manual) Cancelled Spherocytes Cancelled Sickle Cells Cancelled Target Cells Cancelled Tear Drop Cells Cancelled Ovalocytes Cancelled Stomatocytes Cancelled Helmet Cells Cancelled Rios-[place] Bodies Cancelled Omari Cells Cancelled Acanthocytes (Spur) Cancelled Rouleaux Cancelled Schistocytes Cancelled PT INR Sodium 135 Potassium 3.7 Chloride 103 Carbon Dioxide 23 Anion Gap 13 BUN 60 H Creatinine 2.2 H Est GFR ( Amer) 26 Est GFR (Non-Af Amer) 22 POC Glucose (mg/dL) 162 H Random Glucose 248 H Calcium 9.1 Total Bilirubin 0.7 AST 33 ALT 21 Alkaline Phosphatase 81 Total Protein 6.5 Albumin 3.4 L Globulin 3.2 Albumin/Globulin Ratio 1.1 TSH 3rd Generation 0.51 Urine Color Urine Clarity Urine pH Ur Specific [place] Urine Protein Urine Glucose (UA) Urine Ketones Urine Blood Urine Nitrate Urine Bilirubin Urine Urobilinogen Ur Leukocyte Esterase Urine RBC (Auto) Urine Microscopic WBC Ur Squamous Epith Cells Urine Bacteria Blood Type Antibody Screen BBK History Checked 11/19/18 05:39 WBC RBC Hgb Hct MCV MCH MCHC RDW Plt Count MPV Neut % (Auto) Lymph % (Auto) Coffee % (Auto) Eos % (Auto) Baso % (Auto) Neut # (Auto) Lymph # (Auto) Coffee # (Auto) Eos # (Auto) Baso # (Auto) Total Counted Neutrophils % (Manual) Band Neutrophils % Lymphocytes % (Manual) Reactive Lymphs % Monocytes % (Manual) Eosinophils % (Manual) Basophils % (Manual) Metamyelocytes % Myelocytes % Promyelocytes % Blast Cells % Plasma Cell % (Manual) Nucleated RBC % Hypersegmented Polys Smudge Cells Toxic Granulation Dohle Bodies Xu Rods Platelet Estimate Plt Clumps, EDTA Large Platelets Giant Platelets RBC Morphology Polychromasia Hypochromasia (manual) Poikilocytosis (manual Basophilic Stippling Anisocytosis (manual) Microcytosis (manual) Macrocytosis (manual) Spherocytes Sickle Cells Target Cells Tear Drop Cells Ovalocytes Stomatocytes Helmet Cells Rios-[place] Bodies Omari Cells Acanthocytes (Spur) Rouleaux Schistocytes PT INR Sodium Potassium Chloride Carbon Dioxide Anion Gap BUN Creatinine Est GFR ( Amer) Est GFR (Non-Af Amer) POC Glucose (mg/dL) 259 H Random Glucose Calcium Total Bilirubin AST ALT Alkaline Phosphatase Total Protein Albumin Globulin Albumin/Globulin Ratio TSH 3rd Generation Urine Color Urine Clarity Urine pH Ur Specific [place] Urine Protein Urine Glucose (UA) Urine Ketones Urine Blood Urine Nitrate Urine Bilirubin Urine Urobilinogen Ur Leukocyte Esterase Urine RBC (Auto) Urine Microscopic WBC Ur Squamous Epith Cells Urine Bacteria Blood Type Antibody Screen BBK History Checked - EKG Data EKG shows normal: Sinus rhythm, ST-T waves Rate: Normal - Impressions Impression: LAD. Otherwise normal - Imaging and Cardiology XR Left HIP: Status: Report reviewed by me Additional comment: PROCEDURE: Left Hip X-ray Radiographs. HISTORY: trauma COMPARISON: None. TECHNIQUE: 2 views obtained. FINDINGS: BONES: Impacted, comminuted inter trochanteric fracture in varus deformity. JOINTS: Preserved femoral acetabular relationship. SOFT TISSUES: Normal. OTHER FINDINGS: None. IMPRESSION: Acute, comminuted inter trochanteric fracture proximal left femur. Chest x-ray Status: Report reviewed by me Assessment & Plan (1) Closed comminuted intertrochanteric fracture of left femur Status: Acute Priority: High (2) Diabetes mellitus Assessment and Plan: with Hyperglycemia Status: Acute Priority: Medium (3) Hypertension Status: Acute Priority: Medium (4) Acute on chronic renal insufficiency Status: Acute Priority: Medium - Assessment and Plan (Free Text) Plan: Continue Current Care Increase Morphine to 2mg IV Q4hrs Post OP Trop and EKG Observe in ICU for 24hrs POst-OP Continue IVF METS Equivalent <4, and Intermediate Risk Surgery Medically Cleared with Intermediate risk for Left Hip ORIF.
[2018-11-19] MEDS: Brimonidine 0.2% 50 DROP/5 ML BOTTLE OD SCH ×3 (08:48→17:13)
[2018-11-19] MEDS: Ofloxacin Ophth 0.3% Soln OS SCH ×3 (08:51→17:01)
[2018-11-19] MEDS: PrednisoLONE 1% OPTH SUSP OS SCH (08:51)
[2018-11-19] MEDS: Dorzolamide 2% Ophth Soln OD SCH ×2 (08:52→17:04)
[2018-11-19] MEDS: diltiaZEM 120 mg/24 Hours CD Cap PO SCH (09:04)
[2018-11-19] MEDS: Insulin Lispro Mix 75/25 100 units/ml (HumaLog) 10ml SC SCH ×2 (09:23→21:37)
[2018-11-19] MEDS ORDERED: Propofol 10 mg/ml Inj (20 ML) ONE (10:46)
[2018-11-19] MEDS ORDERED: Etomidate 20 mg/10ml Inj IV ONE (10:47)
[2018-11-19] MEDS ORDERED: Normosol-R 1000 ML 1,000 ML IV ONE ×2 (11:25→11:35)
[2018-11-19] MEDS ORDERED: Rocuronium 10 mg/ml (5 ml) ONE (11:38)
--- NOTE | 2018-11-19 11:52 | CARD ---
APPROVED REPORT Date of service: 11/18/2018 EKG Measurement Heart [id number] <Conclusion> Sinus rhythm with 1st degree AV block Left axis deviation Abnormal ECG
--- NOTE | 2018-11-19 12:05 | CARD ---
APPROVED REPORT Date of service: 11/18/2018 EXAM: Two-dimensional and M-mode echocardiogram with Doppler and color Doppler. Other Information Quality : GoodRhythm : NSR INDICATION Pre-Op 2D DIMENSIONS IVSd1.35 (0.7-1.1cm)LVDd3.64 (3.9-5.9cm) LVOT Diameter1.99 (1.8-2.4cm)PWd0.93 (0.7-1.1cm) IVSs1.56 (0.8-1.2cm)LVDs2.23 (2.5-4.0cm) FS (%) 38.9 %PWs1.15 (0.8-1.2cm) M-Mode DIMENSIONS Left Atrium (MM)3.50 (2.5-4.0cm)Aortic Root2.83 (2.2-3.7cm) Aortic Cusp Exc.1.54 (1.5-2.0cm) Aortic Valve AoV Peak Bagilzzw503.2cm/sAoV VTI31.9cmAO Peak GR.10mmHg LVOT Peak Nhursrtg61.4cm/sLVOT VTI19.60cmAO Mean GR.5mmHg NBA (VMAX)1.55pu1IXG (VTI)1.10cm2 Mitral Valve E/A ratio0.0 TDI E/Lateral E'0.0E/Medial E'0.0 Tricuspid Valve TR Peak [id number] [id number] Peak Gr.41mmHg [id number] LEFT VENTRICLE The left ventricle is normal size. There is mild concentric left ventricular hypertrophy. The left ventricular systolic function is normal. The estimated ejection fraction is 60-65% No regional wall motion abnormalities noted.. Transmitral Doppler flow pattern is Grade I-abnormal relaxation pattern. No left ventricle thrombus noted on this study. There is no ventricular septal defect visualized. There is no left ventricular aneurysm. There is no mass noted in the left ventricle. RIGHT VENTRICLE The right ventricle is normal size. There is normal right ventricular wall thickness. The right ventricular systolic function is normal. ATRIA The left atrium size is normal. The right atrium size is normal. The interatrial septum is intact with no evidence for an atrial septal defect. AORTIC VALVE The aortic valve is normal in structure. Mild aortic regurgitation is present. There is no aortic valvular stenosis. There is no aortic valvular vegetation. MITRAL VALVE The mitral valve is normal in structure. There is no evidence of mitral valve prolapse. There is no mitral valve stenosis. There is no mitral valve regurgitation noted. TRICUSPID VALVE The tricuspid valve is normal in structure. There is mild tricuspid valve regurgitation noted. RVSP is calculated at 48 mm Hg. There is no tricuspid valve prolapse or vegetation. There is no tricuspid valve stenosis. PULMONIC VALVE The pulmonary valve is normal in structure. There is no pulmonic valvular regurgitation. There is no pulmonic valvular stenosis. GREAT VESSELS The aortic root is normal in size. The ascending aorta is normal in size. The pulmonary artery is normal. The IVC is normal in size and collapses >50% with inspiration. PERICARDIAL EFFUSION There is no pericardial effusion. There is no pleural effusion. <Conclusion> There is mild concentric left ventricular hypertrophy. The estimated ejection fraction is 60-65% Transmitral Doppler flow pattern is Grade I-abnormal relaxation pattern. The left atrium size is normal. Mild aortic regurgitation is present. There is mild tricuspid valve regurgitation noted. RVSP is calculated at 48 mm Hg.
--- NOTE | 2018-11-19 13:21 | PCM.SURG1 ---
Surgeon's Initial Post Op Note - Surgeon's Notes Surgeon: Dr. Mock Archer[employer] Equipment Hay Sorter: Helio PGY2 Type of Anesthesia: General Endo Anesthesia Administered By: Dr. Tatum Montoya Pre-Operative Diagnosis: Left intratrochanteric femur fracture Operative Findings: Left intratrochanteric femur fracture Post-Operative Diagnosis: Left intratrochanteric femur fracture Operation Performed: Left TFNA Specimen/Specimens Removed: N/A Estimated Blood Loss: EBL {In ML}: 100 Blood Products Given: N/A Drains Used: No Drains Post-Op Condition: Good Date of Surgery/Procedure: 11/19/18 Time of Surgery/Procedure: 13:21
[2018-11-19] MEDS ORDERED: HYDROmorphone 0.5 mg/0.5 ml ISec IVP PRN (14:06)
--- NOTE | 2018-11-19 14:53 | RAD ---
Date of service: 11/19/2018 PROCEDURE: Intraoperative Fluoroscopy. HISTORY: FLUOROSCOPY FINDINGS: Fluoroscopic assistance was provided. Fluoroscopy time = 121.2 sec. Radiation dose = 18.62 mGy. Please refer to the operative report for additional details.
[2018-11-19] MEDS: Insulin Lispro (humaLOG) 100 Units/ml Inj SC SCH ×3 (15:28→21:42)
--- NOTE | 2018-11-19 17:19 | RAD ---
PROCEDURE: Left Hip X-ray Radiographs. Comparison made with radiographs left hip 11/18/2018. HISTORY: s/p Left TFNA COMPARISON: None. TECHNIQUE: 2 views obtained. FINDINGS: BONES: ORIF changes intertrochanteric fracture of the left hip. A compression nail extends through the left femoral neck and head transfixed by a stabilization nail traversing the left proximal femoral shaft. Satisfactory alignment. JOINTS: Degenerative arthritic changes both hip joints. SOFT TISSUES: Unremarkable postoperative changes within the subcutaneous tissues surrounding the left hip OTHER FINDINGS: Vascular calcifications again noted. IMPRESSION: ORIF intertrochanteric fracture left hip with satisfactory alignment.
--- NOTE | 2018-11-19 20:04 | CARD ---
APPROVED REPORT Date of service: 11/19/2018 EKG Measurement Heart [id number] <Conclusion> Normal sinus rhythm Left anterior fascicular block Prolonged QT Abnormal ECG
[2018-11-19] MEDS: Latanoprost 0.005% Opht SOUTION OU SCH (21:39)
[2018-11-19] MEDS: Dextrose 5%/0.45% NS 1,000 ML IV SCH (21:44)
[2018-11-19] MEDS ORDERED: Sodium Chloride 0.9% 1,000 ML IV SCH (22:00)
--- NOTE | 2018-11-19 23:58 | OP ---
PROCEDURE DATE: 11/19/2018 PREOPERATIVE DIAGNOSIS: Displaced left hip intertrochanteric fracture. POSTOPERATIVE DIAGNOSIS: Displaced left hip intertrochanteric fracture. PROCEDURE: Left hip intertrochanteric fracture intramedullary nail fixation, short Synthes TFN nail. SURGEON: Mihai Mock MD EMERGENCY TELECOMMUNICATIONS DISPATCHER: Jessica, resident. ANESTHESIA: General. BLOOD LOSS: 100 mL. SPECIMENS: None. COMPLICATIONS: None. INDICATIONS: A 78-year-old female who sustained slip and fall, presented to [facility] with displaced left hip intertrochanteric fracture. She is indicated for the above procedure. Risks and benefits were explained. Risks included, but not limited to bleeding; infection; tendon, nerve or vessel injury; instability; chronic pain; malunion; nonunion; potential need for additional surgery in the future. The patient and the daughter understood the above risks and elected to proceed. Informed consent was obtained. DESCRIPTION OF PROCEDURE: The patient was brought to the operating room and placed supine on the operating room table. The left lower extremity was then placed into a traction after general anesthesia and prophylactic antibiotics were given. Time-out was performed. Closed reduction of the fracture was then performed. This included traction, internal rotation, and adduction under fluoroscopic guidance. Fluoroscopic images confirmed anatomic reduction of the intertrochanteric fracture. Next, a 4-cm longitudinal incision proximal to the greater trochanter was outlined. Incision was made through skin only. All superficial veins were cauterized. Dissection was carried down to the IT band, which was incised. The starting point of the greater trochanter was identified, and a guidewire was placed intramedullary starting at the tip of the greater trochanter. Guidewire was advanced and confirmed in good location on both AP and lateral fluoroscopic images. After this, an opening reamer was used to open the medullary canal over the guidewire. Next, a 11-mm short TFN nail was advanced into the intramedullary canal and seated to appropriate length. Helical blade guidewire was then advanced into the aiming guide. Incision was made through the skin and carried down to the lateral cortex of the femur. The guide was advanced. Next, guidewire was advanced into the femoral neck and confirmed on both AP and lateral fluoroscopic images. Anatomic placement of the guidewire was confirmed. Appropriate-sized Helical blade was measured and selected. This was a 85-mm Helical blade. The blade was advanced over the guidewire and seated fully. The blade was of appropriate length on both AP and lateral fluoroscopic images. The blade was placed in a compression mode. Next, the blade was locked into the nail proximally with screwdriver. Next, trocar for the distal locking screw was assembled and placed into the aiming guide. The trocar was advanced to the lateral cortex of the femur and drilled bicortically. Appropriate-sized screw was then selected and placed into the distal locking hole locking the nail distally. The aiming guide was then removed. Final fluoroscopic images confirmed well-aligned intramedullary nail with anatomic reduction with no hardware penetrating the joint. The wounds were then copiously irrigated. Deep layers were closed by 0 Vicryl followed by 2-0 for subcuticular layer followed by carmen for skin. Sterile dressings were applied with Aquacel dressing. Traction was removed. The patient tolerated the procedure well. The patient will be transferred to the ICU for monitoring and will still be intubated until it is safe to extubate as per Anesthesia. She can begin weightbearing as tolerated. We will continue to monitor her. Mihai Mock MD
[2018-11-20] MEDS: Insulin Lispro (humaLOG) 100 Units/ml Inj SC SCH ×4 (06:46→21:00)
[2018-11-20 08:52] LABS: BASO % 0.4 % (0.0-2.0); EOS # 0.2 K/uL (0.0-0.7); EOS % 1.6 % (0.0-4.0); LYMPH # 0.7 K/uL (1.0-4.3); LYMPH % 6.9 % (20.0-40.0); MEAN CELL VOLUME 93.5 fl (81.0-99.0); MEAN CORPUSCULAR HEMOGLOBIN 30.4 pg (27.0-31.0); MEAN CORPUSCULAR HGB CONC 32.5 g/dL (33.0-37.0); MEAN PLATELET VOLUME 9.7 fl (7.2-11.7); MONO # 0.7 K/uL (0.0-0.8); MONO % 6.8 % (0.0-10.0); NEUT # 8.4 K/uL (1.8-7.0); NEUT % 84.3 % (50.0-75.0); NRBC % 0.1 % (0.0-0.0); RBC 2.83 Mil/uL (3.80-5.20); RED CELL DISTRIBUTION WIDTH 15.2 % (11.5-14.5)
[2018-11-20 08:55] LABS: HEMOGLOBIN 8.6 g/dL (12.0-16.0)
[2018-11-20] MEDS: PrednisoLONE 1% OPTH SUSP OS SCH (09:10)
[2018-11-20] MEDS: Dorzolamide 2% Ophth Soln OD SCH ×2 (09:10→17:29)
[2018-11-20] MEDS: Ofloxacin Ophth 0.3% Soln OS SCH ×3 (09:11→17:36)
[2018-11-20] MEDS: Brimonidine 0.2% 50 DROP/5 ML BOTTLE OD SCH ×3 (09:11→17:31)
[2018-11-20] MEDS: diltiaZEM 120 mg/24 Hours CD Cap PO SCH (09:13)
[2018-11-20] MEDS: Insulin Lispro Mix 75/25 100 units/ml (HumaLog) 10ml SC SCH ×2 (09:14→21:01)
[2018-11-20 10:12] LABS: CALCIUM 8.5 mg/dL (8.4-10.2)
[2018-11-20] MEDS ORDERED: Sodium Chloride 0.9% 1,000 ML IV SCH (11:30)
--- NOTE | 2018-11-20 11:31 | CP.PCM.PN ---
Subjective - Date & Time of Evaluation Date of Evaluation: 11/20/18 Time of Evaluation: 09:45 - Subjective Subjective: NO CHEST PAIN OR SOB FEELS GOOD Objective - Vital Signs/Intake and Output Vital Signs (last 24 hours): Temp Pulse Resp BP Pulse Ox 98.6 F 92 H 26 H 136/59 L 100 11/20/18 07:16 11/20/18 10:00 11/20/18 10:00 11/20/18 10:00 11/20/18 10:00 Intake and Output: 11/20/18 11/20/18 06:59 18:59 Intake Total 950 740 Output Total 250 Balance 700 740 - Medications Medications: Current Medications Allopurinol (Zyloprim) 100 mg PO DAILY [facility] Last Admin: 11/20/18 09:17 Dose: 100 mg Artificial Tears (Artificial Tears) 2 drop OU Q6 PRN PRN Reason: Dry eyes Last Admin: 11/19/18 08:50 Dose: 2 unit Brimonidine Tartrate (Alphagan 0.2% Opht) 1 drop OD TID [facility] Last Admin: 11/20/18 09:11 Dose: 1 drop Carvedilol (Coreg) 3.125 mg PO Q12 [facility] Last Admin: 11/20/18 09:12 Dose: 3.125 mg Diltiazem HCl (Cardizem Cd) 120 mg PO DAILY [facility] Last Admin: 11/20/18 09:13 Dose: 120 mg Dorzolamide HCl (Trusopt) 1 drop OD BID [facility] Last Admin: 11/20/18 09:10 Dose: 1 drop Famotidine (Pepcid) 20 mg PO [facility] Last Admin: 11/19/18 21:37 Dose: 20 mg Home Med (Solifenacin Succinate [Vesicare]) 5 mg PO DAILY [facility] Sodium Chloride (Sodium Chloride 0.9%) 1,000 mls @ 60 mls/hr IV .[id number] [facility] Stop: 11/21/18 11:28 Insulin Human Lispro (Humalog) 0 units SC [facility]; Protocol Last Admin: 11/20/18 06:46 Dose: 1 unit Insulin Lispro Protam/Lispro Human (Humalog Mix 75/25) 4 units SC [facility] Last Admin: 11/19/18 21:37 Dose: 4 units Insulin Lispro Protam/Lispro Human (Humalog Mix 75/25) 8 units SC QAM [facility] Last Admin: 11/20/18 09:14 Dose: 8 units Latanoprost (Xalatan Opht) 1 drop OU HS [facility] Last Admin: 11/19/18 21:39 Dose: 1 drop Morphine Sulfate (Morphine) 2 mg IVP Q4 PRN PRN Reason: Pain, severe (8-10) Last Admin: 11/20/18 06:13 Dose: 2 mg Ofloxacin (Ocuflox Ophth 0.3%) 1 drop OS TID [facility] Last Admin: 11/20/18 09:11 Dose: 1 drop Ondansetron HCl (Zofran Inj) 4 mg IVP Q6 PRN PRN Reason: Nausea/Vomiting Last Admin: 11/20/18 06:13 Dose: 4 mg Pantoprazole Sodium (Protonix Inj) 40 mg IVP DAILY [facility] Last Admin: 11/20/18 09:12 Dose: 40 mg Prednisolone Acetate (Pred Forte 1% Opht Susp) 1 drop OS DAILY [facility] Last Admin: 11/20/18 09:10 Dose: 1 drop Timolol Maleate (Timoptic 0.5% Ophth Soln) 1 drop OD BID [facility] Last Admin: 11/20/18 09:16 Dose: 1 drop Tramadol HCl (Ultram) 50 mg PO Q6 PRN PRN Reason: Pain, severe (8-10) Last Admin: 11/18/18 21:52 Dose: 50 mg - Labs Labs: 11/20/18 08:30 11/20/18 09:45 PT 12.8 Seconds (9.8-13.1) 11/18/18 14:30 INR 1.1 11/18/18 14:30 - Respiratory Exam Respiratory Exam: Clear to Ausculation Bilateral - Cardiovascular Exam Cardiovascular Exam: REGULAR RHYTHM, +S1, +S2 - Extremities Exam Additional comments: NO LE EDEMA - Additional Findings Additional findings: COSMETICS DEMONSTRATOR NSR OR NOTES FROM 11/19/18 REVIEWED BUN 59/CR 2.4 Assessment and Plan - Assessment and Plan (Free Text) Assessment: S/P SURGICAL REPAIR OF LEFT HIP SURGERY HYPERTENSION DM TEA ON CRF Plan: CONTINUE IV FLUIDS, CARVEDILOL AND DILTIAZEM
--- NOTE | 2018-11-20 17:21 | PN ---
DATE: 11/20/2018 CRITICAL CARE PROGRESS NOTE LOCATION: The patient in ICU, bed 432. TIME SPENT: 35 minutes. The patient is seen, evaluated at the bedside. Past medical, surgical, family and social history reviewed. SUBJECTIVE: A 78-year-old female postop day 1 status post left trochanteric femoral nailing, operative course uneventful, extubated, on oxygen supplement 2 liters nasal cannula. OBJECTIVE: GENERAL: This morning, alert and awake. Follows commands appropriate. Hard of hearing. Reduced vision. VITAL SIGNS: Temperature 98.6, heart rate 92 regular, blood pressure 136/59, mean arterial pressure 84, respiratory rate of 26, oxygen saturation 100%, oxygen supplement 4 liters nasal cannula. Intake of 1450, output 250, positive balance 1200. Weight 179 pounds. HEAD, EYES, EARS, NOSE, AND THROAT: Pupils are reactive. Conjunctivae pink. No nystagmus. NECK: Supple. Trachea central. CHEST: Bilateral breath sounds clear to auscultation. HEART: Rhythm regular. S1, S2 normal intensity. ABDOMEN: Bowel sounds present. Soft. EXTREMITIES: Venodyne boots in place. Dorsalis pedis palpable. SKIN: Without rash. NEUROLOGIC: Alert and oriented to name, place and time. Deep tendon reflex 2+ bilaterally. Plantarflexed. CURRENT MEDICATIONS: Zyloprim 100 mg p.o. daily, artificial tears 2 drop OU every 6 hours p.r.n., brimonidine tartrate 1 drop OD three times daily, Coreg 3.125 mg p.o. every 12 hours, Cardizem 120 mg p.o. daily, Trusopt 1 drop OD b.i.d., Pepcid 20 mg p.o. h.s., Accu-Chek with regular insulin coverage, Humalog mix 75/25 eight units subcu in the morning, Humalog mix 75/25 four units at night, Xalatan ophthalmic eye drops OU 1 drop daily, morphine 2 mg IV every 4 hours p.r.n., ofloxacin ophthalmic 0.3% 1 drop OS t.i.d., Zofran 4 mg IV every 6 hours p.r.n., Protonix 40 IV daily, prednisolone acetate 1% ophthalmic suspension 1 drop OS daily, timolol 0.5% 1 drop OD b.i.d., and tramadol 50 mg every 6 hours p.r.n. for pain. LABORATORY DATA: WBC 10, hemoglobin 8.6, hematocrit 26.5, 93.5, platelet of 131. PT is 12.81 and INR 1.1. SMA-7; sodium 137, potassium 3.8, chloride 103, CO2 22, blood urea nitrogen 59, creatinine 2.4, calcium 8.5, troponin negative, albumin 3.4. Urinalysis is negative. Microbiology none reported. X-ray; right hip ORIF and intertrochanteric fracture left hip with satisfactory alignment. IMPRESSION: 1. Neurologic: Alert and awake, diabetic retinopathy with reduced vision. 2. Pulmonary: No acute issues, encourage incentive spirometry. 3. Cardiac: Hypertension, controlled. No cardiac arrhythmia noted. 4. Hematology: Anemia, drop in hemoglobin secondary to possible blood loss and dilution. Reduce IV fluid to 40 mL/hour. 5. Renal: Chronic renal insufficiency with stable BUN and creatinine. Medication adjusted for renal insufficiency. 6. Continue eyedrops for retinopathy, DVT prophylaxis with Venodyne boots, resume heparin once cleared by orthopedic for enhanced DVT prophylaxis. Out of bed to chair as tolerated when cleared by ortho. Consider OT/PT evaluation. Frederic Murillo MD
[2018-11-20] MEDS: Docusate-Senna 50 mg-8.6 mg Tab PO SCH (21:01)
[2018-11-20] MEDS: Latanoprost 0.005% Opht SOUTION OU SCH (21:03)
[2018-11-21 06:04] LABS: HEMOGLOBIN 7.3 g/dL (12.0-16.0); MEAN CELL VOLUME 93.5 fl (81.0-99.0); MEAN CORPUSCULAR HEMOGLOBIN 30.8 pg (27.0-31.0); MEAN CORPUSCULAR HGB CONC 32.9 g/dL (33.0-37.0); RBC 2.36 Mil/uL (3.80-5.20); RED CELL DISTRIBUTION WIDTH 15.4 % (11.5-14.5); WHITE BLOOD COUNT 7.8 K/uL (4.8-10.8)
[2018-11-21 06:08] LABS: CALCIUM 8.3 mg/dL (8.4-10.2)
[2018-11-21] MEDS: Insulin Lispro (humaLOG) 100 Units/ml Inj SC SCH ×4 (06:46→21:22)
--- NOTE | 2018-11-21 08:37 | CP.PCM.PN ---
Subjective - Date & Time of Evaluation Date of Evaluation: 11/21/18 Time of Evaluation: 08:00 - Subjective Subjective: Patient seen and examined at bedside comfortable. Daughter at bedside. Pain well controlled. Has not had PT since surgery. Denies CP/SOB/N/fever. Objective - Vital Signs/Intake and Output Vital Signs (last 24 hours): Temp Pulse Resp BP Pulse Ox 98.0 F 76 17 144/47 L 100 11/21/18 07:54 11/21/18 07:54 11/21/18 07:54 11/21/18 07:54 11/21/18 07:54 Intake and Output: 11/21/18 11/21/18 06:59 18:59 Intake Total 970 Output Total 350 Balance 620 - Medications Medications: Current Medications Acetaminophen (Tylenol 325mg Tab) 650 mg PO Q6 PRN PRN Reason: Fever >100.4 F Last Admin: 11/20/18 23:31 Dose: 650 mg Allopurinol (Zyloprim) 100 mg PO DAILY [facility] Last Admin: 11/20/18 09:17 Dose: 100 mg Artificial Tears (Artificial Tears) 2 drop OU Q6 PRN PRN Reason: Dry eyes Last Admin: 11/19/18 08:50 Dose: 2 unit Aspirin (Aspirin Chewable) 81 mg PO DAILY [facility] Brimonidine Tartrate (Alphagan 0.2% Opht) 1 drop OD TID [facility] Last Admin: 11/20/18 17:31 Dose: 1 drop Calcium Carbonate (Oscal) 500 mg PO BIDWM [facility] Carvedilol (Coreg) 3.125 mg PO Q12 [facility] Last Admin: 11/20/18 20:59 Dose: 3.125 mg Cyanocobalamin (Vitamin B12 1000 Mcg Tab) 1,000 mcg PO DAILY [facility] Diltiazem HCl (Cardizem Cd) 120 mg PO DAILY [facility] Last Admin: 11/20/18 09:13 Dose: 120 mg Dorzolamide HCl (Trusopt) 1 drop OD BID [facility] Last Admin: 11/20/18 17:29 Dose: 1 drop Famotidine (Pepcid) 20 mg PO HS [facility] Last Admin: 11/20/18 21:01 Dose: 20 mg Heparin Sodium (Porcine) (Heparin) 5,000 units SC Q12 [facility]; Protocol Last Admin: 11/20/18 20:58 Dose: 5,000 units Home Med (Solifenacin Succinate [Vesicare]) 5 mg PO DAILY [facility] Last Admin: 11/20/18 13:17 Dose: 5 mg Sodium Chloride (Sodium Chloride 0.9%) 1,000 mls @ 60 mls/hr IV .[id number] [facility] Stop: 11/21/18 11:28 Last Admin: 11/20/18 11:52 Dose: 60 mls/hr Insulin Human Lispro (Humalog) 0 units SC ACHS [facility]; Protocol Last Admin: 11/21/18 06:46 Dose: 1 unit Insulin Lispro Protam/Lispro Human (Humalog Mix 75/25) 4 units SC HS [facility] Last Admin: 11/20/18 21:01 Dose: 4 units Insulin Lispro Protam/Lispro Human (Humalog Mix 75/25) [facility] Last Admin: 11/20/18 09:14 Dose: 8 units Latanoprost (Xalatan Opht) 1 drop OU [facility] Last Admin: 11/20/18 21:03 Dose: 1 drop Morphine Sulfate (Morphine) 2 mg IVP Q4 PRN PRN Reason: Pain, severe (8-10) Last Admin: 11/21/18 05:06 Dose: 2 mg Morphine Sulfate (Morphine) 2 mg IVP ONCE PRN PRN Reason: 30min before Physical Therapy Ofloxacin (Ocuflox Ophth 0.3%) 1 drop OS TID [facility] Last Admin: 11/20/18 17:36 Dose: 1 drop Ondansetron HCl (Zofran Inj) 4 mg IVP Q6 PRN PRN Reason: Nausea/Vomiting Last Admin: 11/20/18 06:13 Dose: 4 mg Pantoprazole Sodium (Protonix Inj) 40 mg IVP DAILY [facility] Last Admin: 11/20/18 09:12 Dose: 40 mg Potassium Chloride (Klor-Con 10) 40 meq PO DAILY [facility] Prednisolone Acetate (Pred Forte 1% Opht Susp) 1 drop OS DAILY [facility] Last Admin: 11/20/18 09:10 Dose: 1 drop Senna/Docusate Sodium (Senokot S 50 Mg-8.6 Mg) 2 tab PO [facility] Last Admin: 11/20/18 21:01 Dose: 2 tab Timolol Maleate (Timoptic 0.5% Ophth Soln) 1 drop OD BID [facility] Last Admin: 11/20/18 17:28 Dose: 1 drop Tramadol HCl (Ultram) 50 mg PO Q6 PRN PRN Reason: Pain, severe (8-10) Last Admin: 11/18/18 21:52 Dose: 50 mg - Labs Labs: 11/21/18 05:20 11/21/18 05:20 PT 12.8 Seconds (9.8-13.1) 11/18/18 14:30 INR 1.1 11/18/18 14:30 - Extremities Exam Additional comments: LLE: mild thigh swelling, compartments soft Dressings CDI, Incision intact with carmen, minimal dry blood sensation intact SP/DP/TN motor intact EHL/FHl/TA/G pedal pulse intact calves soft NT Assessment and Plan (1) Closed comminuted intertrochanteric fracture of left femur Assessment & Plan: POD#2 s/p L hip ORIF with IM nail -HGB trending down, vitals stable, 2 PRBC's ordered for transfusion -Dressings changed -PT/OT WBAT -DVT ppx -monitor labs -pain control -d/w Dr. Mock who agrees with above Status: Acute
[2018-11-21] MEDS ORDERED: Potassium Chloride 10 mEq ER Tab PO SCH (09:00)
[2018-11-21] MEDS ORDERED: Sodium Chloride 0.9% 1,000 ML IV SCH (09:01)
[2018-11-21] MEDS: Insulin Lispro Mix 75/25 100 units/ml (HumaLog) 10ml SC SCH ×2 (09:01→21:22)
[2018-11-21] MEDS: Dorzolamide 2% Ophth Soln OD SCH ×2 (09:08→19:01)
[2018-11-21] MEDS: Brimonidine 0.2% 50 DROP/5 ML BOTTLE OD SCH ×2 (09:10→13:19)
[2018-11-21] MEDS: PrednisoLONE 1% OPTH SUSP OS SCH (09:20)
[2018-11-21] MEDS: Ofloxacin Ophth 0.3% Soln OS SCH ×3 (09:22→18:50)
[2018-11-21] MEDS: diltiaZEM 120 mg/24 Hours CD Cap PO SCH (09:23)
[2018-11-21] MEDS: Potassium Chloride 20 mEq ER Tab PO SCH (09:51)
--- NOTE | 2018-11-21 10:05 | CP.PCM.PN ---
Subjective - Date & Time of Evaluation Date of Evaluation: 11/21/18 Time of Evaluation: 08:30 - Subjective Subjective: NO CHEST PAIN OR SOB Objective - Vital Signs/Intake and Output Vital Signs (last 24 hours): Temp Pulse Resp BP Pulse Ox 98.0 F 84 17 165/70 H 100 11/21/18 07:54 11/21/18 09:24 11/21/18 07:54 11/21/18 09:24 11/21/18 07:54 Intake and Output: 11/21/18 11/21/18 06:59 18:59 Intake Total 970 Output Total 350 Balance 620 - Medications Medications: Current Medications Acetaminophen (Tylenol 325mg Tab) 650 mg PO Q6 PRN PRN Reason: Fever >100.4 F Last Admin: 11/20/18 23:31 Dose: 650 mg Allopurinol (Zyloprim) 100 mg PO DAILY [facility] Last Admin: 11/21/18 09:23 Dose: 100 mg Artificial Tears (Artificial Tears) 2 drop OU Q6 PRN PRN Reason: Dry eyes Last Admin: 11/19/18 08:50 Dose: 2 unit Aspirin (Aspirin Chewable) 81 mg PO DAILY [facility] Last Admin: 11/21/18 09:23 Dose: 81 mg Brimonidine Tartrate (Alphagan 0.2% Opht) 1 drop OD TID [facility] Last Admin: 11/21/18 09:10 Dose: 1 drop Calcium Carbonate (Oscal) 500 mg PO BIDWM [facility] Last Admin: 11/21/18 09:22 Dose: 500 mg Carvedilol (Coreg) 3.125 mg PO Q12 [facility] Last Admin: 11/21/18 09:24 Dose: 3.125 mg Cyanocobalamin (Vitamin B12 1000 Mcg Tab) 1,000 mcg PO DAILY [facility] Last Admin: 11/21/18 09:23 Dose: 1,000 mcg Diltiazem HCl (Cardizem Cd) 120 mg PO DAILY [facility] Last Admin: 11/21/18 09:23 Dose: 120 mg Dorzolamide HCl (Trusopt) 1 drop OD BID [facility] Last Admin: 11/21/18 09:08 Dose: 1 drop Famotidine (Pepcid) 20 mg PO HS [facility] Last Admin: 11/20/18 21:01 Dose: 20 mg Heparin Sodium (Porcine) (Heparin) 5,000 units SC Q12 [facility]; Protocol Last Admin: 11/21/18 09:04 Dose: 5,000 units Home Med (Solifenacin Succinate [Vesicare]) 5 mg PO DAILY@2200 [facility] Sodium Chloride (Sodium Chloride 0.9%) 1,000 mls @ 100 mls/hr IV .Q10H [facility] Stop: 11/21/18 11:28 Insulin Human Lispro (Humalog) 0 units SC ACHS [facility]; Protocol Last Admin: 11/21/18 06:46 Dose: 1 unit Insulin Lispro Protam/Lispro Human (Humalog Mix 75/25) 4 units SC HS [facility] Last Admin: 11/20/18 21:01 Dose: 4 units Insulin Lispro Protam/Lispro Human (Humalog Mix 75/25) 8 units SC QAM [facility] Last Admin: 11/21/18 09:01 Dose: 8 units Latanoprost (Xalatan Opht) 1 drop OU [facility] Last Admin: 11/20/18 21:03 Dose: 1 drop Morphine Sulfate (Morphine) 2 mg IVP Q4 PRN PRN Reason: Pain, severe (8-10) Last Admin: 11/21/18 05:06 Dose: 2 mg Morphine Sulfate (Morphine) 2 mg IVP ONCE PRN PRN Reason: 30min before Physical Therapy Ofloxacin (Ocuflox Ophth 0.3%) 1 drop OS TID [facility] Last Admin: 11/21/18 09:22 Dose: 1 drop Ondansetron HCl (Zofran Inj) 4 mg IVP Q6 PRN PRN Reason: Nausea/Vomiting Last Admin: 11/20/18 06:13 Dose: 4 mg Pantoprazole Sodium (Protonix Inj) 40 mg IVP DAILY [facility] Last Admin: 11/21/18 08:50 Dose: 40 mg Potassium Chloride (K-Dur 20 Meq Er Tab) 40 meq PO DAILY [facility] Last Admin: 11/21/18 09:51 Dose: 40 meq Prednisolone Acetate (Pred Forte 1% Opht Susp) 1 drop OS DAILY [facility] Last Admin: 11/21/18 09:20 Dose: 1 drop Senna/Docusate Sodium (Senokot S 50 Mg-8.6 Mg) 2 tab PO [facility] Last Admin: 11/20/18 21:01 Dose: 2 tab Timolol Maleate (Timoptic 0.5% Ophth Soln) 1 drop OD BID [facility] Last Admin: 11/21/18 09:21 Dose: 1 drop Tramadol HCl (Ultram) 50 mg PO Q6 PRN PRN Reason: Pain, severe (8-10) Last Admin: 11/18/18 21:52 Dose: 50 mg - Labs Labs: 11/21/18 05:20 11/21/18 05:20 PT 12.8 Seconds (9.8-13.1) 11/18/18 14:30 INR 1.1 11/18/18 14:30 - Respiratory Exam Respiratory Exam: Clear to Ausculation Bilateral - Cardiovascular Exam Cardiovascular Exam: REGULAR RHYTHM, +S1, +S2 - Extremities Exam Additional comments: NO PRETIBIAL EDEMA - Additional Findings Additional findings: EKG NSR H/H 02/06 BUN/CR 56/2.3 K+ 3.4 Assessment and Plan - Assessment and Plan (Free Text) Assessment: S/P HIP SURGERY FOR FALL AND FRACTURE HYPERTENSION RENAL FAILURE DM POST-OP ANEMIA Plan: CONTINUE IV FLUIDS, CARDIZEM, CARVEDILOL, INSULIN, KCL THE PATIENT WILL RECEIVE 2U RBCS
[2018-11-21] MEDS ORDERED: Potassium Chloride 20 mEq/15 ml LIQ UD PO ONE (15:30)
--- NOTE | 2018-11-21 17:43 | PN ---
DATE: 11/21/2018 CRITICAL CARE PROGRESS NOTE LOCATION: The patient in ICU bed 432. TIME SPENT: 35 minutes. The patient is seen, evaluated at the bedside. Discussed case in the multidisciplinary ICU rounds this morning. Past medical, surgical, family and social history reviewed. SUBJECTIVE: A 78-year-old female postop day 2 status post ORIF with nailing status post left trochanteric femoral fracture. Overnight, low grade fever; normotensive; telemetry sinus rhythm. PHYSICAL EXAMINATION: GENERAL: This morning; alert, awake, follows commands appropriate. Hard of hearing. Reduced vision in both eyes. VITAL SIGNS: Temperature 99.7, heart rate 86, blood pressure 139/52, respiratory rate 22, saturation 97% on room air. Intake 2860, output 700, positive balance 2160. Weight 178 pounds. HEAD, EYES, EARS, NOSE, AND THROAT: Pupils reactive. Conjunctivae pink. Sclerae are white. NECK: Supple. Trachea central. CHEST: Bilateral breath sounds clear to auscultation. HEART: Rhythm regular. S1, S2 normal intensity. No S3, S4 gallop. No audible murmur. ABDOMEN: Bowel sounds present. Soft. EXTREMITIES: Venodyne boots in place. Dorsalis pedis palpable. SKIN: Without rash. Site of surgery without bleeding. NEUROLOGIC: Alert and oriented to name and place, but not to time. Deep tendon reflex 2+ bilaterally. MEDICATIONS: Include Tylenol 650 every 6 hours p.r.n., Zyloprim 100 mg p.o. daily, artificial tears two drops OU every 6 hours p.r.n., aspirin 81 mg daily, Alphagan 0.2% ophthalmic solution 1 drop OD three times daily, OsCal 500 mg b.i.d., Coreg 3.125 mg every 12 hours, cyanocobalamin 1000 mcg p.o. daily, Cardizem CD 120 mg p.o. daily, Pepcid 20 mg p.o. daily, heparin 5000 units subcutaneous every 12 hours, insulin Humalog before meals and at bedtime, insulin Lispro 8 units subcutaneous morning and 4 units at night, Xalatan ophthalmic eye drops 1 drop OU h.s., morphine 2 mg IV every 4 hours p.r.n. for severe pain, ofloxacin ophthalmic drops 0.3% 1 drop OS t.i.d., Zofran 4 mg IV every 6 hours p.r.n., K-Dur 40 mEq p.o. daily, prednisolone acetate 1% ophthalmic suspension 1 drop OS daily, Senokot 50 mg 8.6 mg 2 tablets p.o. at bedtime, Timoptic ophthalmic solution 1 drop OD twice daily, Ultram 50 mg every 6 hours p.r.n. LABORATORY DATA: WBC 7.8, hemoglobin 7.3, hematocrit 22.1, platelet count of 126. PT 12.8 and INR 1.01. SMA-7; sodium 136, potassium 3.4, chloride 106, CO2 of 21, blood urea nitrogen 56, creatinine 2.3, random glucose 154. Urinalysis negative. Microbiology, nasal smear MRSA negative. IMPRESSION: 1. Neurologic: Alert and awake, diabetic retinopathy with reduced vision. 2. Pulmonary: No acute issues. On incentive spirometry. 3. Cardiac: Hypertension, controlled. No cardiac arrhythmia. 4. Hematology: Anemia, drop in hemoglobin, likely acute blood loss versus dilutional. Packed red blood cells and transfusion in progress. 5. Renal: Chronic renal insufficiency. BUN and creatinine remains stable. Medications adjusted for renal insufficiency. 6.ID: low grade temperature last night , likely post operative. tylenol as needed. Incentive spirometry to prevent atlectasis. 7.. Continue eyedrops for retinopathy. DVT prophylaxis with Venodyne boots and heparin 5000 units subcu every 12 hours. Out of bed to chair as tolerated. OT/PT evaluation in progress. Frederic Murillo MD MTDD
[2018-11-21 19:59] LABS: HEMOGLOBIN 7.9 g/dL (12.0-16.0); MEAN CORPUSCULAR HEMOGLOBIN 30.9 pg (27.0-31.0); MEAN CORPUSCULAR HGB CONC 33.6 g/dL (33.0-37.0); RBC 2.56 Mil/uL (3.80-5.20); RED CELL DISTRIBUTION WIDTH 15.8 % (11.5-14.5); WHITE BLOOD COUNT 8.7 K/uL (4.8-10.8)
[2018-11-21] MEDS: Docusate-Senna 50 mg-8.6 mg Tab PO SCH (21:26)
[2018-11-21] MEDS: Latanoprost 0.005% Opht SOUTION OU SCH (21:30)
[2018-11-21] MEDS: TIMOLOL OD SCH ×2 (21:31→21:41)
[2018-11-21] MEDS: AZOPT 1% OD SCH ×2 (21:31→21:41)
[2018-11-21] MEDS: BRIMONIDINE OD SCH ×2 (21:31→21:41)
[2018-11-22 05:04] LABS: HEMOGLOBIN 8.6 g/dL (12.0-16.0); MEAN CELL VOLUME 91.4 fl (81.0-99.0); MEAN CORPUSCULAR HEMOGLOBIN 30.5 pg (27.0-31.0); MEAN CORPUSCULAR HGB CONC 33.3 g/dL (33.0-37.0); RBC 2.82 Mil/uL (3.80-5.20); WHITE BLOOD COUNT 9.5 K/uL (4.8-10.8)
[2018-11-22 05:14] LABS: CALCIUM 8.1 mg/dL (8.4-10.2)
[2018-11-22] MEDS: PrednisoLONE 1% OPTH SUSP OS SCH (08:23)
[2018-11-22] MEDS: Ofloxacin Ophth 0.3% Soln OS SCH ×3 (08:24→17:42)
[2018-11-22] MEDS: AZOPT 1% OD SCH ×2 (08:25→21:48)
[2018-11-22] MEDS: diltiaZEM 120 mg/24 Hours CD Cap PO SCH (08:26)
[2018-11-22] MEDS: Insulin Lispro Mix 75/25 100 units/ml (HumaLog) 10ml SC SCH ×2 (08:29→21:41)
[2018-11-22] MEDS: Insulin Lispro (humaLOG) 100 Units/ml Inj SC SCH ×4 (08:29→21:37)
[2018-11-22] MEDS: Potassium Chloride 20 mEq ER Tab PO SCH (08:30)
[2018-11-22] MEDS: BRIMONIDINE OD SCH ×2 (08:32→21:45)
[2018-11-22] MEDS: TIMOLOL OD SCH ×2 (08:32→21:45)
--- NOTE | 2018-11-22 08:44 | CP.PCM.PN ---
Subjective - Date & Time of Evaluation Date of Evaluation: 11/22/18 Time of Evaluation: 07:30 - Subjective Subjective: Patient seen and examined at bedside comfortable. Pain well controlled. No acute events overnight. Tolerated PT well, OOB ambulating to 15 ft. Tolerated 2 units PRBC well. Denies CP/SOB/fever/dizziness. Objective - Vital Signs/Intake and Output Vital Signs (last 24 hours): Temp Pulse Resp BP Pulse Ox 99.0 F 87 17 159/60 H 100 11/22/18 08:00 11/22/18 08:26 11/22/18 08:00 11/22/18 08:26 11/22/18 08:00 Intake and Output: 11/22/18 11/22/18 06:59 18:59 Intake Total 1200 Balance 1200 - Medications Medications: Current Medications Acetaminophen (Tylenol 325mg Tab) 650 mg PO Q6 PRN PRN Reason: Fever >100.4 F Last Admin: 11/20/18 23:31 Dose: 650 mg Allopurinol (Zyloprim) 100 mg PO DAILY [facility] Last Admin: 11/22/18 08:34 Dose: 100 mg Artificial Tears (Artificial Tears) 2 drop OU Q6 PRN PRN Reason: Dry eyes Last Admin: 11/19/18 08:50 Dose: 2 unit Aspirin (Aspirin Chewable) 81 mg PO DAILY [facility] Last Admin: 11/22/18 08:26 Dose: 81 mg Calcium Carbonate (Oscal) 500 mg PO BIDWM [facility] Last Admin: 11/22/18 08:31 Dose: 500 mg Carvedilol (Coreg) 3.125 mg PO Q12 [facility] Last Admin: 11/22/18 08:26 Dose: 3.125 mg Cyanocobalamin (Vitamin B12 1000 Mcg Tab) 1,000 mcg PO DAILY [facility] Last Admin: 11/22/18 08:34 Dose: 1,000 mcg Diltiazem HCl (Cardizem Cd) 120 mg PO DAILY [facility] Last Admin: 11/22/18 08:26 Dose: 120 mg Famotidine (Pepcid) 20 mg PO HS [facility] Last Admin: 11/21/18 21:29 Dose: 20 mg Heparin Sodium (Porcine) (Heparin) 5,000 units SC Q12 [facility]; Protocol Last Admin: 11/22/18 08:27 Dose: 5,000 units Home Med (Solifenacin Succinate [Vesicare]) 5 mg PO DAILY@2200 [facility] Last Admin: 11/21/18 21:30 Dose: 5 mg Home Med (Patient's Own Medication) 1 unit OD [facility] Last Admin: 11/22/18 08:25 Dose: 1 unit Home Med (Patient's Own Medication) 1 unit OD [facility] Last Admin: 11/22/18 08:32 Dose: 1 unit Insulin Human Lispro (Humalog) 0 units SC ACHS [facility]; Protocol Last Admin: 11/22/18 08:29 Dose: Not Given Insulin Lispro Protam/Lispro Human (Humalog Mix 75/25) 4 units SC [facility] Last Admin: 11/21/18 21:22 Dose: 4 units Insulin Lispro Protam/Lispro Human (Humalog Mix 75/25) 8 units SC [facility] Last Admin: 11/22/18 08:29 Dose: 8 units Latanoprost (Xalatan Opht) 1 drop OU [facility] Last Admin: 11/21/18 21:30 Dose: 1 drop Morphine Sulfate (Morphine) 2 mg IVP Q4 PRN PRN Reason: Pain, severe (8-10) Last Admin: 11/22/18 00:22 Dose: 2 mg Morphine Sulfate (Morphine) 2 mg IVP ONCE PRN PRN Reason: 30min before Physical Therapy Ofloxacin (Ocuflox Ophth 0.3%) 1 drop OS TID [facility] Last Admin: 11/22/18 08:24 Dose: 1 drop Ondansetron HCl (Zofran Inj) 4 mg IVP Q6 PRN PRN Reason: Nausea/Vomiting Last Admin: 11/20/18 06:13 Dose: 4 mg Pantoprazole Sodium (Protonix Inj) 40 mg IVP DAILY [facility] Last Admin: 11/22/18 08:33 Dose: 40 mg Potassium Chloride (K-Dur 20 Meq Er Tab) 40 meq PO DAILY [facility] Last Admin: 11/22/18 08:30 Dose: 40 meq Prednisolone Acetate (Pred Forte 1% Opht Susp) 1 drop OS DAILY [facility] Last Admin: 11/22/18 08:23 Dose: 1 drop Senna/Docusate Sodium (Senokot S 50 Mg-8.6 Mg) 2 tab PO [facility] Last Admin: 11/21/18 21:26 Dose: 2 tab - Labs Labs: 11/22/18 04:00 11/22/18 04:31 PT 12.8 Seconds (9.8-13.1) 11/18/18 14:30 INR 1.1 11/18/18 14:30 - Extremities Exam Additional comments: LLE: mild thigh swelling, compartments soft Dressings CDI sensation intact SP/DP/TN motor intact EHL/FHl/TA/G pedal pulse intact calves soft mildly tender b/l Assessment and Plan (1) Closed comminuted intertrochanteric fracture of left femur Assessment & Plan: POD#3 s/p L hip ORIF with IM nail -HGB improved s/p transfusion, continue to monitor -B/l LE venous duplex, r/o DVT -PT/OT WBAT -DVT ppx -orthopedically stable for transfer out of ICU -d/w Dr. Mock who agrees with above Status: Acute
--- NOTE | 2018-11-22 10:05 | CP.PCM.PN ---
Subjective - Date & Time of Evaluation Date of Evaluation: 11/22/18 Time of Evaluation: 08:30 - Subjective Subjective: NO COMPLAINTS OF CHEST PAIN OR SOB FEELS A LITTLE STRONGER AFTER THE BLOOD TRANSFUSION YESTERDAY Objective - Vital Signs/Intake and Output Vital Signs (last 24 hours): Temp Pulse Resp BP Pulse Ox 99.0 F 87 17 159/60 H 100 11/22/18 08:00 11/22/18 08:26 11/22/18 08:00 11/22/18 08:26 11/22/18 08:00 Intake and Output: 11/22/18 11/22/18 06:59 18:59 Intake Total 1200 Balance 1200 - Medications Medications: Current Medications Acetaminophen (Tylenol 325mg Tab) 650 mg PO Q6 PRN PRN Reason: Fever >100.4 F Last Admin: 11/20/18 23:31 Dose: 650 mg Allopurinol (Zyloprim) 100 mg PO DAILY [facility] Last Admin: 11/22/18 08:34 Dose: 100 mg Artificial Tears (Artificial Tears) 2 drop OU Q6 PRN PRN Reason: Dry eyes Last Admin: 11/19/18 08:50 Dose: 2 unit Aspirin (Aspirin Chewable) 81 mg PO DAILY [facility] Last Admin: 11/22/18 08:26 Dose: 81 mg Calcium Carbonate (Oscal) 500 mg PO BIDWM [facility] Last Admin: 11/22/18 08:31 Dose: 500 mg Carvedilol (Coreg) 3.125 mg PO Q12 [facility] Last Admin: 11/22/18 08:26 Dose: 3.125 mg Cyanocobalamin (Vitamin B12 1000 Mcg Tab) 1,000 mcg PO DAILY [facility] Last Admin: 11/22/18 08:34 Dose: 1,000 mcg Diltiazem HCl (Cardizem Cd) 120 mg PO DAILY [facility] Last Admin: 11/22/18 08:26 Dose: 120 mg Famotidine (Pepcid) 20 mg PO HS [facility] Last Admin: 11/21/18 21:29 Dose: 20 mg Heparin Sodium (Porcine) (Heparin) 5,000 units SC Q12 [facility]; Protocol Last Admin: 11/22/18 08:27 Dose: 5,000 units Home Med (Solifenacin Succinate [Vesicare]) 5 mg PO DAILY@2200 [facility] Last Admin: 11/21/18 21:30 Dose: 5 mg Home Med (Patient's Own Medication) 1 unit OD [facility] Last Admin: 11/22/18 08:25 Dose: 1 unit Home Med (Patient's Own Medication) 1 unit OD [facility] Last Admin: 11/22/18 08:32 Dose: 1 unit Insulin Human Lispro (Humalog) 0 units SC ACHS [facility]; Protocol Last Admin: 11/22/18 08:29 Dose: Not Given Insulin Lispro Protam/Lispro Human (Humalog Mix 75/25) 4 units SC [facility] Last Admin: 11/21/18 21:22 Dose: 4 units Insulin Lispro Protam/Lispro Human (Humalog Mix 75/25) 8 units SC [facility] Last Admin: 11/22/18 08:29 Dose: 8 units Latanoprost (Xalatan Opht) 1 drop OU [facility] Last Admin: 11/21/18 21:30 Dose: 1 drop Morphine Sulfate (Morphine) 2 mg IVP ONCE PRN PRN Reason: 30min before Physical Therapy Last Admin: 11/22/18 09:58 Dose: 2 mg Ofloxacin (Ocuflox Ophth 0.3%) 1 drop OS TID [facility] Last Admin: 11/22/18 08:24 Dose: 1 drop Ondansetron HCl (Zofran Inj) 4 mg IVP Q6 PRN PRN Reason: Nausea/Vomiting Last Admin: 11/20/18 06:13 Dose: 4 mg Pantoprazole Sodium (Protonix Inj) 40 mg IVP DAILY [facility] Last Admin: 11/22/18 08:33 Dose: 40 mg Potassium Chloride (K-Dur 20 Meq Er Tab) 40 meq PO DAILY [facility] Last Admin: 11/22/18 08:30 Dose: 40 meq Prednisolone Acetate (Pred Forte 1% Opht Susp) 1 drop OS DAILY [facility] Last Admin: 11/22/18 08:23 Dose: 1 drop Senna/Docusate Sodium (Senokot S 50 Mg-8.6 Mg) 2 tab PO [facility] Last Admin: 11/21/18 21:26 Dose: 2 tab - Labs Labs: 11/22/18 04:00 11/22/18 04:31 PT 12.8 Seconds (9.8-13.1) 11/18/18 14:30 INR 1.1 11/18/18 14:30 - Respiratory Exam Respiratory Exam: Clear to Ausculation Bilateral - Cardiovascular Exam Cardiovascular Exam: REGULAR RHYTHM, +S1, +S2, Murmur - Extremities Exam Additional comments: NO LE EDEMA BILAT CALF TENDERNESS R>L - 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
--- NOTE | 2018-11-22 10:53 | US ---
Date of service: 11/22/2018 PROCEDURE: Bilateral lower extremity venous duplex Doppler. HISTORY: r/o LE DVT COMPARISON: None available. TECHNIQUE: Bilateral common femoral, superficial femoral, popliteal and posterior tibial veins were evaluated. Flow was assessed with color Doppler, compressibility, assessment of phasic flow and augmentation response. FINDINGS: COMMON FEMORAL VEIN: Right CFV: Unremarkable. Left CFV: Unremarkable. SUPERFICIAL FEMORAL VEIN: Right SFV: Unremarkable. Left SFV: Unremarkable. POPLITEAL VEIN: Right Popliteal: Unremarkable. Left Popliteal: Unremarkable. POSTERIOR TIBIAL VEIN: Right PTV: Unremarkable. Left PTV: Unremarkable. OTHER FINDINGS: None. IMPRESSION: No evidence of deep venous thrombosis.
--- NOTE | 2018-11-22 15:38 | OP ---
PROCEDURE DATE: 11/22/2018 LOCATION: The patient in ICU bed 432. TIME SPENT: 25 minutes. SUBJECTIVE: The patient is seen, evaluated at the bedside. Discussed in Multidisciplinary ICU rounds this morning. Events overnight noted, status post transfusion 2 units of packed red blood cells. Tolerated well. Low-grade temperature, otherwise normal telemetry and normotensive. PHYSICAL EXAMINATION: GENERAL: Alert and awake. Follows commands appropriate. Complaining of pain, left mid thigh with mild tenderness. VITAL SIGNS: Temperature 99, heart rate 87 and regular, blood pressure 159/60, respiratory rate of 17, saturation 100%. Intake 3121, output 600. Positive balance 2521. Weight 178 pounds. HEENT: Pupils are reactive. Conjunctivae pink. Sclerae white. NECK: Supple. Trachea is central. CHEST: Bilateral breath sounds. Clear to auscultation. HEART: Rhythm regular. S1, S2, normal intensity. No S3, S4, gallop. No audible murmur. ABDOMEN: Bowel sounds present. Soft. EXTREMITIES: Venodyne boots in place. Dependent edema, more on the left than right, with mild tenderness in the left mid thigh. SKIN: Without any rash. Site of surgery without bleeding. NEUROLOGIC: Alert, oriented to name, place and time. Deep tendon reflex 2+ bilaterally. No cranial nerve deficit. CURRENT MEDICATIONS: Tylenol 650 every 6 hours p.r.n., Zyloprim 100 mg p.o. daily, artificial tears 2 drops both eyes every 6 hours p.r.n., aspirin 81 mg daily, OsCal 500 mg p.o. b.i.d., Coreg 3.125 mg every 12 hours, cyanocobalamin 1000 mcg daily, Cardizem CD 120 mg p.o. daily, Pepcid 20 mg p.o. at bedtime, heparin 5000 units subcutaneous every 12 hours, Humalog lispro before meals and at bedtime, Humalog Mix 75/25 at 8 units in the morning and 4 units in the evening, Xalatan ophthalmic eyedrops 1 drop both eyes at bedtime, morphine 2 mg IV every 6 hours p.r.n. for pain, ofloxacin 0.3% eyedrop 1 drop left eye three times daily, Zofran 4 mg IV every 6 hours p.r.n., Protonix 40 IV daily, potassium chloride 40 mEq p.o. daily, Pred Forte 1% ophthalmic suspension 1 drop left eye daily, Senokot 50 mg/8.6 mg 2 tablets at bedtime. LABORATORY DATA: WBC 9.5, hemoglobin 8.6, hematocrit 25.8, platelet count 131. PT 12.8, INR 1.1. SMA-7: Sodium 138, potassium 3.9, chloride 110, CO2 of 21, blood urea nitrogen 50, creatinine 2.2, random glucose 165, calcium 8.1. Urinalysis negative. IMPRESSION: Neurologic: Alert and awake. Diabetic retinopathy with reduced vision. Pulmonary: No acute issues, on incentive spirometry. Cardiac: Hypertension, controlled. No cardiac arrhythmia. Telemetry, sinus rhythm. Hematology: Anemia, drop in hemoglobin, likely acute blood loss versus dilutional, status post transfusion 2 units of packed red blood cells. Hemoglobin and hematocrit improved and remains stable. No active bleeding noted. Renal: Chronic renal insufficiency. BUN and creatinine remains elevated but stable. Medications adjusted for renal insufficiency. Infectious Disease: Low-grade temperature. No clear evidence of infection. Endocrinology: Diabetes with diabetic retinopathy, on Accu-Chek with regular insulin coverage and Mix 75/25. Continue deep venous thrombosis prophylaxis. Ultrasound, venous Doppler of the lower extremity to rule out deep venous thrombosis. Out of bed to chair as tolerated. If the Doppler negative, we will continue with occupational therapy and physical therapy, and the patient can be transferred to Med-Surgical floor. Frederic Murillo MD
[2018-11-22] MEDS: Docusate-Senna 50 mg-8.6 mg Tab PO SCH (21:46)
[2018-11-22] MEDS: Latanoprost 0.005% Opht SOUTION OU SCH (21:47)
[2018-11-23 05:10] LABS: HEMOGLOBIN 8.5 g/dL (12.0-16.0); MEAN CELL VOLUME 91.9 fl (81.0-99.0); MEAN CORPUSCULAR HEMOGLOBIN 30.7 pg (27.0-31.0); MEAN CORPUSCULAR HGB CONC 33.4 g/dL (33.0-37.0); RBC 2.78 Mil/uL (3.80-5.20); RED CELL DISTRIBUTION WIDTH 16.1 % (11.5-14.5); WHITE BLOOD COUNT 9.7 K/uL (4.8-10.8)
[2018-11-23 05:27] LABS: CALCIUM 8.1 mg/dL (8.4-10.2)
[2018-11-23] MEDS: Insulin Lispro (humaLOG) 100 Units/ml Inj SC SCH ×4 (06:30→22:35)
[2018-11-23] MEDS: BRIMONIDINE OD SCH ×2 (09:53→21:13)
[2018-11-23] MEDS: TIMOLOL OD SCH ×2 (09:53→21:13)
[2018-11-23] MEDS: Ofloxacin Ophth 0.3% Soln OS SCH ×3 (09:53→16:46)
[2018-11-23] MEDS: PrednisoLONE 1% OPTH SUSP OS SCH (09:53)
[2018-11-23] MEDS: AZOPT 1% OD SCH ×2 (09:53→21:07)
[2018-11-23] MEDS: diltiaZEM 120 mg/24 Hours CD Cap PO SCH (09:54)
[2018-11-23] MEDS: Insulin Lispro Mix 75/25 100 units/ml (HumaLog) 10ml SC SCH ×2 (09:55→22:35)
[2018-11-23] MEDS: Potassium Chloride 10 mEq ER Tab PO SCH (09:56)
--- NOTE | 2018-11-23 11:22 | CP.PCM.PN ---
Subjective - Date & Time of Evaluation Date of Evaluation: 11/23/18 Time of Evaluation: 09:30 - Subjective Subjective: NO CHEST PAIN OR SOB Objective - Vital Signs/Intake and Output Vital Signs (last 24 hours): Temp Pulse Resp BP Pulse Ox 98.4 F 84 20 125/44 L 95 11/23/18 08:06 11/23/18 09:55 11/23/18 08:06 11/23/18 09:55 11/23/18 08:06 Intake and Output: 11/23/18 11/23/18 06:59 18:59 Intake Total 900 Balance 900 - Medications Medications: Current Medications Acetaminophen (Tylenol 325mg Tab) 650 mg PO Q6 PRN PRN Reason: Fever >100.4 F Last Admin: 11/20/18 23:31 Dose: 650 mg Allopurinol (Zyloprim) 100 mg PO DAILY [facility] Last Admin: 11/23/18 09:57 Dose: 100 mg Artificial Tears (Artificial Tears) 2 drop OU Q6 PRN PRN Reason: Dry eyes Last Admin: 11/19/18 08:50 Dose: 2 unit Aspirin (Aspirin Chewable) 81 mg PO DAILY [facility] Last Admin: 11/23/18 09:51 Dose: 81 mg Calcium Carbonate (Oscal) 500 mg PO BIDWM [facility] Last Admin: 11/23/18 09:56 Dose: 500 mg Carvedilol (Coreg) 3.125 mg PO Q12 [facility] Last Admin: 11/23/18 09:55 Dose: 3.125 mg Cyanocobalamin (Vitamin B12 1000 Mcg Tab) 1,000 mcg PO DAILY [facility] Last Admin: 11/23/18 09:57 Dose: 1,000 mcg Diltiazem HCl (Cardizem Cd) 120 mg PO DAILY [facility] Last Admin: 11/23/18 09:54 Dose: 120 mg Famotidine (Pepcid) 20 mg PO HS [facility] Last Admin: 11/22/18 21:45 Dose: 20 mg Heparin Sodium (Porcine) (Heparin) 5,000 units SC Q12 [facility]; Protocol Last Admin: 11/23/18 09:55 Dose: 5,000 units Home Med (Solifenacin Succinate [Vesicare]) 5 mg PO DAILY@2200 [facility] Last Admin: 11/22/18 21:46 Dose: 5 mg Home Med (Patient's Own Medication) 1 unit OD [facility] Last Admin: 11/23/18 09:53 Dose: 1 unit Home Med (Patient's Own Medication) 1 unit OD [facility] Last Admin: 11/23/18 09:53 Dose: 1 unit Insulin Human Lispro (Humalog) 0 units SC ACHS [facility]; Protocol Last Admin: 11/23/18 06:30 Dose: Not Given Insulin Lispro Protam/Lispro Human (Humalog Mix 75/25) 4 units SC HS [facility] Last Admin: 11/22/18 21:41 Dose: 4 units Insulin Lispro Protam/Lispro Human (Humalog Mix 75/25) 8 units SC QAM [facility] Last Admin: 11/23/18 09:55 Dose: 8 units Latanoprost (Xalatan Opht) 1 drop OU HS [facility] Last Admin: 11/22/18 21:47 Dose: 1 drop Morphine Sulfate (Morphine) 2 mg IVP ONCE PRN PRN Reason: 30min before Physical Therapy Last Admin: 11/22/18 09:58 Dose: 2 mg Ofloxacin (Ocuflox Ophth 0.3%) 1 drop OS TID [facility] Last Admin: 11/23/18 09:53 Dose: 1 drop Ondansetron HCl (Zofran Inj) 4 mg IVP Q6 PRN PRN Reason: Nausea/Vomiting Last Admin: 11/20/18 06:13 Dose: 4 mg Pantoprazole Sodium (Protonix Inj) 40 mg IVP DAILY [facility] Last Admin: 11/23/18 09:56 Dose: 40 mg Potassium Chloride (Klor-Con 10) 10 meq PO DAILY [facility] Last Admin: 11/23/18 09:56 Dose: 10 meq Prednisolone Acetate (Pred Forte 1% Opht Susp) 1 drop OS DAILY [facility] Last Admin: 11/23/18 09:53 Dose: 1 drop Senna/Docusate Sodium (Senokot S 50 Mg-8.6 Mg) 2 tab PO HS [facility] Last Admin: 11/22/18 21:46 Dose: 2 tab Tramadol HCl (Ultram) 50 mg PO Q6 PRN PRN Reason: Pain, moderate (4-7) Last Admin: 11/22/18 13:26 Dose: 50 mg - Labs Labs: 11/23/18 04:26 11/23/18 04:26 PT 12.8 Seconds (9.8-13.1) 11/18/18 14:30 INR 1.1 11/18/18 14:30 - Respiratory Exam Respiratory Exam: Clear to Ausculation Bilateral - Cardiovascular Exam Cardiovascular Exam: REGULAR RHYTHM, +S1, +S2 - Extremities Exam Additional comments: NO SIGNIFICANT LE EDEMA - Additional Findings Additional findings: HOG TENDER NSR LE VENOUS DOPPLER STUDIES WERE NEGATIVE PATIENT HAD A THIAGO OF 101.2 YESTERDAY AND BLOOD CULTURES WERE DRAWN BUN/CR 46/2.0 Assessment and Plan - Assessment and Plan (Free Text) Assessment: HYPERTENSION DM S/P HIP SURGERY RENAL FAILURE-BUN/CR ARE IMPROVING Plan: CONTINUE ASPIRIN, HEPARIN, CARVEDILOL AND CARDIZEM
[2018-11-23] MEDS: Sodium Chloride 0.9% 1,000 ML IV SCH (12:59)
[2018-11-23 14:12] LABS: SQUAMOUS EPITHIAL 5 /hpf (0-5); URINE BACTERIA OCC (<OCC); URINE BILIRUBIN NEGATIVE (NEGATIVE); URINE BLOOD NEGATIVE (NEGATIVE); URINE CLARITY SLIGHTY-CLOUDY (Clear); URINE COLOR YELLOW (YELLOW); URINE GLUCOSE (UA) NEG (NEGATIVE); URINE LEUKOCYTE ESTERASE MOD Leu/uL (Negative); URINE PROTEIN 100 mg/dL (NEGATIVE); URINE UROBILINOGEN 0.2-1.0 mg/dL (0.2-1.0)
--- NOTE | 2018-11-23 14:24 | RAD ---
Date of service: 11/23/2018 HISTORY: FEVER COMPARISON: 11/18/2018 TECHNIQUE: 1 view obtained. FINDINGS: LUNGS: Lung volumes low-normal. There is vague rounded opacity perceived over the lateral right lung base-an interval developing low-density infiltrate here is a consideration. Has a somewhat nodular appearance and continued close follow-up is advised. Overall bronchovascular markings appear coarse as before. PLEURA: No significant pleural effusion identified, no pneumothorax apparent. CARDIOVASCULAR: There is presence of aortic atherosclerotic calcification on x-ray. Mild cardiomegaly suspect-similar. Concomitant mild pulmonary vascular congestion possible. No significant change here perceived. Chronic bronchovascular markings noted and similar in appearance OSSEOUS STRUCTURES: Thoracic spondylosis. Bilateral shoulder arthrosis. VISUALIZED UPPER ABDOMEN: Normal. OTHER FINDINGS: None. IMPRESSION: Interval nodular opacity right lateral lung base. An interval infiltrate is a consideration. Continued follow-up to complete resolution recommended. Comments: There is overall relative increased density over this portion of the inferior right lung along with the soft tissues lateral to the right ribcage how much of this appearance of increased nodular opacity perceived over the lateral right lung base is technical is unclear. Given the clinical history-a potential interval infiltrate here in addition to artifact needs to be considered.
--- NOTE | 2018-11-23 16:21 | CP.PCM.PN ---
Subjective - Date & Time of Evaluation Date of Evaluation: 11/23/18 Time of Evaluation: 12:00 - Subjective Subjective: Patient was seen and examined at bedside comfortable. Pain is much improved. No acute events overnight. Tolerating PT well, able to walk down hallway. Offers no other complaints. Objective - Vital Signs/Intake and Output Vital Signs (last 24 hours): Temp Pulse Resp BP Pulse Ox 97.5 F L 87 19 122/51 L 98 11/23/18 12:38 11/23/18 15:23 11/23/18 12:38 11/23/18 15:23 11/23/18 15:23 Intake and Output: 11/23/18 11/23/18 06:59 18:59 Intake Total 900 700 Balance 900 700 - Medications Medications: Current Medications Acetaminophen (Tylenol 325mg Tab) 650 mg PO Q6 PRN PRN Reason: Fever >100.4 F Last Admin: 11/20/18 23:31 Dose: 650 mg Allopurinol (Zyloprim) 100 mg PO DAILY [facility] Last Admin: 11/23/18 09:57 Dose: 100 mg Artificial Tears (Artificial Tears) 2 drop OU Q6 PRN PRN Reason: Dry eyes Last Admin: 11/19/18 08:50 Dose: 2 unit Aspirin (Aspirin Chewable) 81 mg PO DAILY [facility] Last Admin: 11/23/18 09:51 Dose: 81 mg Calcium Carbonate (Oscal) 500 mg PO BIDWM [facility] Last Admin: 11/23/18 09:56 Dose: 500 mg Carvedilol (Coreg) 3.125 mg PO Q12 [facility] Last Admin: 11/23/18 09:55 Dose: 3.125 mg Cyanocobalamin (Vitamin B12 1000 Mcg Tab) 1,000 mcg PO DAILY [facility] Last Admin: 11/23/18 09:57 Dose: 1,000 mcg Diltiazem HCl (Cardizem Cd) 120 mg PO DAILY [facility] Last Admin: 11/23/18 09:54 Dose: 120 mg Famotidine (Pepcid) 20 mg PO HS [facility] Last Admin: 11/22/18 21:45 Dose: 20 mg Heparin Sodium (Porcine) (Heparin) 5,000 units SC Q12 [facility]; Protocol Last Admin: 11/23/18 09:55 Dose: 5,000 units Home Med (Solifenacin Succinate [Vesicare]) 5 mg PO DAILY@2200 [facility] Last Admin: 11/22/18 21:46 Dose: 5 mg Home Med (Patient's Own Medication) 1 unit OD [facility] Last Admin: 11/23/18 09:53 Dose: 1 unit Home Med (Patient's Own Medication) 1 unit OD [facility] Last Admin: 11/23/18 09:53 Dose: 1 unit Sodium Chloride (Sodium Chloride 0.9%) 1,000 mls @ 60 mls/hr IV .[id number] [facility] Stop: 11/24/18 12:31 Last Admin: 11/23/18 12:59 Dose: 60 mls/hr Insulin Human Lispro (Humalog) 0 units SC [facility]; Protocol Last Admin: 11/23/18 12:57 Dose: 1 unit Insulin Lispro Protam/Lispro Human (Humalog Mix 75/25) 4 units SC [facility] Last Admin: 11/22/18 21:41 Dose: 4 units Insulin Lispro Protam/Lispro Human (Humalog Mix 75/25) 8 units SC [facility] Last Admin: 11/23/18 09:55 Dose: 8 units Latanoprost (Xalatan Opht) 1 drop OU [facility] Last Admin: 11/22/18 21:47 Dose: 1 drop Morphine Sulfate (Morphine) 2 mg IVP ONCE PRN PRN Reason: 30min before Physical Therapy Last Admin: 11/22/18 09:58 Dose: 2 mg Morphine Sulfate (Morphine) 2 mg IVP DAILY [facility] Last Admin: 11/23/18 13:28 Dose: 2 mg Ofloxacin (Ocuflox Ophth 0.3%) 1 drop OS TID [facility] Last Admin: 11/23/18 12:58 Dose: 1 drop Ondansetron HCl (Zofran Inj) 4 mg IVP Q6 PRN PRN Reason: Nausea/Vomiting Last Admin: 11/20/18 06:13 Dose: 4 mg Pantoprazole Sodium (Protonix Inj) 40 mg IVP DAILY [facility] Last Admin: 11/23/18 09:56 Dose: 40 mg Potassium Chloride (Klor-Con 10) 10 meq PO DAILY [facility] Last Admin: 11/23/18 09:56 Dose: 10 meq Prednisolone Acetate (Pred Forte 1% Opht Susp) 1 drop OS DAILY [facility] Last Admin: 05/08/19 09:53 Dose: 1 drop Senna/Docusate Sodium (Senokot S 50 Mg-8.6 Mg) 2 tab PO HS [facility] Last Admin: 11/22/18 21:46 Dose: 2 tab Tramadol HCl (Ultram) 50 mg PO Q6 PRN PRN Reason: Pain, moderate (4-7) Last Admin: 11/23/18 12:56 Dose: 50 mg - Labs Labs: 11/23/18 04:26 11/23/18 04:26 PT 12.8 Seconds (9.8-13.1) 11/18/18 14:30 INR 1.1 11/18/18 14:30 - Extremities Exam Additional comments: LLE: mild thigh swelling, compartments soft Dressings CDI Incisions CDI with carmen sensation intact SP/DP/TN motor intact EHL/FHl/TA/G pedal pulse intact calves soft mildly tender b/l Assessment and Plan (1) Closed comminuted intertrochanteric fracture of left femur Assessment & Plan: POD#4 s/p L hip ORIF with IM nail -HGB stable -B/l LE venous duplex neg for DVT -PT/OT WBAT -DVT ppx -orthopedically stable for d/c to rehab vs TCU -d/w Dr. Mock who agrees with above Status: Acute
[2018-11-23] MEDS: Latanoprost 0.005% Opht SOUTION OU SCH (21:08)
[2018-11-23] MEDS: Docusate-Senna 50 mg-8.6 mg Tab PO SCH (21:08)
[2018-11-24] MEDS: Sodium Chloride 0.9% 1,000 ML IV SCH (06:00)
[2018-11-24] MEDS: Insulin Lispro (humaLOG) 100 Units/ml Inj SC SCH (06:54)
--- NOTE | 2018-11-24 08:03 | CP.PCM.PN ---
Subjective - Date & Time of Evaluation Date of Evaluation: 11/24/18 Time of Evaluation: 08:01 - Subjective Subjective: Patient with daughter at bedside. No new complaints. Objective - Vital Signs/Intake and Output Vital Signs (last 24 hours): Temp Pulse Resp BP Pulse Ox 98.4 F 85 19 119/66 100 11/24/18 00:00 11/24/18 00:00 11/24/18 00:00 11/24/18 00:00 11/24/18 00:00 - Medications Medications: Current Medications Acetaminophen (Tylenol 325mg Tab) 650 mg PO Q6 PRN PRN Reason: Fever >100.4 F Last Admin: 11/20/18 23:31 Dose: 650 mg Acetaminophen (Tylenol 325mg Tab) 650 mg PO Q6 PRN PRN Reason: Pain, Mild (1-3) Last Admin: 11/24/18 07:40 Dose: 650 mg Allopurinol (Zyloprim) 100 mg PO DAILY [facility] Last Admin: 11/23/18 09:57 Dose: 100 mg Artificial Tears (Artificial Tears) 2 drop OU Q6 PRN PRN Reason: Dry eyes Last Admin: 11/19/18 08:50 Dose: 2 unit Aspirin (Aspirin Chewable) 81 mg PO DAILY [facility] Last Admin: 11/23/18 09:51 Dose: 81 mg Calcium Carbonate (Oscal) 500 mg PO BIDWM [facility] Last Admin: 11/23/18 16:46 Dose: 500 mg Carvedilol (Coreg) 3.125 mg PO Q12 [facility] Last Admin: 11/23/18 21:08 Dose: 3.125 mg Cyanocobalamin (Vitamin B12 1000 Mcg Tab) 1,000 mcg PO DAILY [facility] Last Admin: 11/23/18 09:57 Dose: 1,000 mcg Diltiazem HCl (Cardizem Cd) 120 mg PO DAILY [facility] Last Admin: 11/23/18 09:54 Dose: 120 mg Famotidine (Pepcid) 20 mg PO HS [facility] Last Admin: 11/23/18 21:17 Dose: 20 mg Heparin Sodium (Porcine) (Heparin) 5,000 units SC Q12 [facility]; Protocol Last Admin: 11/23/18 21:09 Dose: 5,000 units Home Med (Solifenacin Succinate [Vesicare]) 5 mg PO DAILY@2200 [facility] Last Admin: 11/23/18 21:12 Dose: 5 mg Home Med (Patient's Own Medication) 1 unit OD [facility] Last Admin: 11/23/18 21:07 Dose: 1 unit Home Med (Patient's Own Medication) 1 unit OD [facility] Last Admin: 11/23/18 21:13 Dose: 1 unit Sodium Chloride (Sodium Chloride 0.9%) 1,000 mls @ 60 mls/hr IV .[id number] [facility] Stop: 11/24/18 12:31 Last Admin: 11/24/18 06:00 Dose: Not Given Insulin Human Lispro (Humalog) 0 units SC [facility]S [facility]; Protocol Last Admin: 11/24/18 06:54 Dose: Not Given Insulin Lispro Protam/Lispro Human (Humalog Mix 75/25) 4 units SC [facility] Last Admin: 11/23/18 22:35 Dose: 4 units Insulin Lispro Protam/Lispro Human (Humalog Mix 75/25) 8 units SC [facility] Last Admin: 11/23/18 09:55 Dose: 8 units Latanoprost (Xalatan Opht) 1 drop OU [facility] Last Admin: 11/23/18 21:08 Dose: 1 drop Morphine Sulfate (Morphine) 2 mg IVP DAILY [facility] Last Admin: 11/23/18 13:28 Dose: 2 mg Ofloxacin (Ocuflox Ophth 0.3%) 1 drop OS TID [facility] Last Admin: 11/23/18 16:46 Dose: 1 drop Ondansetron HCl (Zofran Inj) 4 mg IVP Q6 PRN PRN Reason: Nausea/Vomiting Last Admin: 11/20/18 06:13 Dose: 4 mg Pantoprazole Sodium (Protonix Inj) 40 mg IVP DAILY [facility] Last Admin: 11/23/18 09:56 Dose: 40 mg Potassium Chloride (Klor-Con 10) 10 meq PO DAILY [facility] Last Admin: 11/23/18 09:56 Dose: 10 meq Prednisolone Acetate (Pred Forte 1% Opht Susp) 1 drop OS DAILY [facility] Last Admin: 11/23/18 09:53 Dose: 1 drop Senna/Docusate Sodium (Senokot S 50 Mg-8.6 Mg) 2 tab PO [facility] Last Admin: 11/23/18 21:08 Dose: 2 tab Tramadol HCl (Ultram) 50 mg PO Q6 PRN PRN Reason: Pain, moderate (4-7) Last Admin: 11/24/18 02:57 Dose: 50 mg - Labs Labs: 11/23/18 04:26 11/23/18 04:26 PT 12.8 Seconds (9.8-13.1) 11/18/18 14:30 INR 1.1 11/18/18 14:30 - Extremities Exam Additional comments: Left hip: dressing intact, dry, no erythema. Noted ecchymosis. +ROM ankle/toes, sensation intact +DP/PT pulses calves soft NT neg homans Assessment and Plan (1) Closed comminuted intertrochanteric fracture of left femur Assessment & Plan: POD#5 s/p ORIF orthopedically stable cont VTE proph on heparin cont PT/OT d/w planning to rehab f/u Dr. Mock 7-10 days upon d/c call for appt d/w Dr. Mock agrees with above Status: Acute (2) Acute blood loss anemia Assessment & Plan: h/h stable Status: Acute
[2018-11-24 08:10] VITALS: BP 154/73; PULSE 89; RESP 20; TEMP 99.7; O2SAT 95
[2018-11-24] MEDS: diltiaZEM 120 mg/24 Hours CD Cap PO SCH (09:12)
[2018-11-24] MEDS: Potassium Chloride 10 mEq ER Tab PO SCH (09:13)
[2018-11-24] MEDS: Insulin Lispro Mix 75/25 100 units/ml (HumaLog) 10ml SC SCH (09:15)
[2018-11-24] MEDS: TIMOLOL OD SCH (09:17)
[2018-11-24] MEDS: BRIMONIDINE OD SCH (09:17)
[2018-11-24] MEDS: PrednisoLONE 1% OPTH SUSP OS SCH (09:19)
--- NOTE | 2018-11-24 09:42 | CP.PCM.PN ---
Subjective - Date & Time of Evaluation Date of Evaluation: 11/24/18 Time of Evaluation: 09:30 - Subjective Subjective: NO CHEST PAIN OR SOB Objective - Vital Signs/Intake and Output Vital Signs (last 24 hours): Temp Pulse Resp BP Pulse Ox 99.7 F H 89 20 154/73 H 95 11/24/18 08:09 11/24/18 09:14 11/24/18 08:09 11/24/18 09:14 11/24/18 08:09 - Medications Medications: Current Medications Acetaminophen (Tylenol 325mg Tab) 650 mg PO Q6 PRN PRN Reason: Fever >100.4 F Last Admin: 11/20/18 23:31 Dose: 650 mg Acetaminophen (Tylenol 325mg Tab) 650 mg PO Q6 PRN PRN Reason: Pain, Mild (1-3) Last Admin: 11/24/18 07:40 Dose: 650 mg Allopurinol (Zyloprim) 100 mg PO DAILY [facility] Last Admin: 11/24/18 09:13 Dose: 100 mg Artificial Tears (Artificial Tears) 2 drop OU Q6 PRN PRN Reason: Dry eyes Last Admin: 11/19/18 08:50 Dose: 2 unit Aspirin (Aspirin Chewable) 81 mg PO DAILY [facility] Last Admin: 11/24/18 09:15 Dose: 81 mg Calcium Carbonate (Oscal) 500 mg PO BIDWM [facility] Last Admin: 11/24/18 09:13 Dose: 500 mg Carvedilol (Coreg) 3.125 mg PO Q12 [facility] Last Admin: 11/24/18 09:14 Dose: 3.125 mg Cyanocobalamin (Vitamin B12 1000 Mcg Tab) 1,000 mcg PO DAILY [facility] Last Admin: 11/24/18 09:13 Dose: 1,000 mcg Diltiazem HCl (Cardizem Cd) 120 mg PO DAILY [facility] Last Admin: 11/24/18 09:12 Dose: 120 mg Famotidine (Pepcid) 20 mg PO HS [facility] Last Admin: 11/23/18 21:17 Dose: 20 mg Heparin Sodium (Porcine) (Heparin) 5,000 units SC Q12 [facility]; Protocol Last Admin: 11/24/18 09:13 Dose: 5,000 units Home Med (Solifenacin Succinate [Vesicare]) 5 mg PO DAILY@2200 [facility] Last Admin: 11/23/18 21:12 Dose: 5 mg Home Med (Patient's Own Medication) 1 unit OD [facility] Last Admin: 11/23/18 21:07 Dose: 1 unit Home Med (Patient's Own Medication) 1 unit OD [facility] Last Admin: 11/24/18 09:17 Dose: 1 unit Sodium Chloride (Sodium Chloride 0.9%) 1,000 mls @ 60 mls/hr IV .[id number] [facility] Stop: 11/24/18 12:31 Last Admin: 11/24/18 06:00 Dose: Not Given Insulin Human Lispro (Humalog) 0 units SC ACHS [facility]; Protocol Last Admin: 11/24/18 06:54 Dose: Not Given Insulin Lispro Protam/Lispro Human (Humalog Mix 75/25) 4 units SC [facility] Last Admin: 11/23/18 22:35 Dose: 4 units Insulin Lispro Protam/Lispro Human (Humalog Mix 75/25) 8 [facility] Last Admin: 11/24/18 09:15 Dose: 8 units Latanoprost (Xalatan Opht) 1 drop OU [facility] Last Admin: 11/23/18 21:08 Dose: 1 drop Morphine Sulfate (Morphine) 2 mg IVP DAILY [facility] Last Admin: 11/23/18 13:28 Dose: 2 mg Ofloxacin (Ocuflox Ophth 0.3%) 1 drop OS TID [facility] Last Admin: 11/23/18 16:46 Dose: 1 drop Ondansetron HCl (Zofran Inj) 4 mg IVP Q6 PRN PRN Reason: Nausea/Vomiting Last Admin: 11/20/18 06:13 Dose: 4 mg Pantoprazole Sodium (Protonix Inj) 40 mg IVP DAILY [facility] Last Admin: 11/24/18 09:19 Dose: 40 mg Potassium Chloride (Klor-Con 10) 10 meq PO DAILY [facility] Last Admin: 11/24/18 09:13 Dose: 10 meq Prednisolone Acetate (Pred Forte 1% Opht Susp) 1 drop OS DAILY [facility] Last Admin: 11/24/18 09:19 Dose: 1 drop Senna/Docusate Sodium (Senokot S 50 Mg-8.6 Mg) 2 tab PO [facility] Last Admin: 11/23/18 21:08 Dose: 2 tab Tramadol HCl (Ultram) 50 mg PO Q6 PRN PRN Reason: Pain, moderate (4-7) Last Admin: 11/24/18 02:57 Dose: 50 mg - Labs Labs: 11/23/18 04:26 11/23/18 04:26 PT 12.8 Seconds (9.8-13.1) 11/18/18 14:30 INR 1.1 11/18/18 14:30 - Respiratory Exam Respiratory Exam: Clear to Ausculation Bilateral - Cardiovascular Exam Cardiovascular Exam: REGULAR RHYTHM - Extremities Exam Additional comments: NO LE EDEMA Assessment and Plan - Assessment and Plan (Free Text) Assessment: S/P FALL WITH HIP FRACTURE AND SURGICAL REPAIR HYPERTENSION SM RENAL DISEASE Plan: CONTINUE ASPIRIN, CARDIZEM, CARVEDILOL, INSULIN AND IV FLUIDS FOR REHAB
--- NOTE | 2018-11-25 13:18 | CP.PCM.PN ---
Subjective - Date & Time of Evaluation Date of Evaluation: 11/20/18 Objective - Vital Signs/Intake and Output Vital Signs (last 24 hours): Temp Pulse Resp BP Pulse Ox 99.7 F H 89 20 154/73 H 95 11/24/18 08:09 11/24/18 09:14 11/24/18 08:09 11/24/18 09:14 11/24/18 08:09 - Labs Labs: 11/23/18 04:26 11/23/18 04:26 PT 12.8 Seconds (9.8-13.1) 11/18/18 14:30 INR 1.1 11/18/18 14:30 Assessment and Plan (1) Closed comminuted intertrochanteric fracture of left femur Status: Acute (2) Diabetes mellitus Status: Acute (3) Hypertension Status: Acute (4) Acute on chronic renal insufficiency Status: Acute
--- NOTE | 2018-11-25 13:19 | CP.PCM.PN ---
Subjective - Date & Time of Evaluation Date of Evaluation: 11/22/18 Objective - Vital Signs/Intake and Output Vital Signs (last 24 hours): Temp Pulse Resp BP Pulse Ox 99.7 F H 89 20 154/73 H 95 11/24/18 08:09 11/24/18 09:14 11/24/18 08:09 11/24/18 09:14 11/24/18 08:09 - Labs Labs: 11/23/18 04:26 11/23/18 04:26 PT 12.8 Seconds (9.8-13.1) 11/18/18 14:30 INR 1.1 11/18/18 14:30 Assessment and Plan (1) Closed comminuted intertrochanteric fracture of left femur Status: Acute (2) Diabetes mellitus Status: Acute (3) Hypertension Status: Acute (4) Acute on chronic renal insufficiency Status: Acute
--- NOTE | 2018-11-25 13:19 | CP.PCM.PN ---
Subjective - Date & Time of Evaluation Date of Evaluation: 11/21/18 Objective - Vital Signs/Intake and Output Vital Signs (last 24 hours): Temp Pulse Resp BP Pulse Ox 99.7 F H 89 20 154/73 H 95 11/24/18 08:09 11/24/18 09:14 11/24/18 08:09 11/24/18 09:14 11/24/18 08:09 - Labs Labs: 11/23/18 04:26 11/23/18 04:26 PT 12.8 Seconds (9.8-13.1) 11/18/18 14:30 INR 1.1 11/18/18 14:30 Assessment and Plan (1) Closed comminuted intertrochanteric fracture of left femur Status: Acute (2) Diabetes mellitus Status: Acute (3) Hypertension Status: Acute (4) Acute on chronic renal insufficiency Status: Acute
--- NOTE | 2018-11-25 13:20 | CP.PCM.PN ---
Subjective - Date & Time of Evaluation Date of Evaluation: 11/23/18 Objective - Vital Signs/Intake and Output Vital Signs (last 24 hours): Temp Pulse Resp BP Pulse Ox 99.7 F H 89 20 154/73 H 95 11/24/18 08:09 11/24/18 09:14 11/24/18 08:09 11/24/18 09:14 11/24/18 08:09 - Labs Labs: 11/23/18 04:26 11/23/18 04:26 PT 12.8 Seconds (9.8-13.1) 11/18/18 14:30 INR 1.1 11/18/18 14:30 Assessment and Plan (1) Closed comminuted intertrochanteric fracture of left femur Status: Acute (2) Diabetes mellitus Status: Acute (3) Hypertension Status: Acute (4) Acute on chronic renal insufficiency Status: Acute
--- NOTE | 2018-11-25 13:21 | CP.PCM.DIS ---
Provider - Provider Date of Admission: 11/18/18 15:40 Attending physician: Laverne Flynn MD Primary care physician: Laverne Flynn MD Consults: 11/18/18 15:41 Physician Consult Stat Comment: Consulting Provider: Santy Ga Consulting Physician: Santy Ga Reason for Consult: Hip Fracture 11/18/18 16:15 Physician Consult Stat Comment: Consulting Provider: Mihai Mock Consulting Physician: Mihai Mock Reason for Consult: Left hip fracture 11/23/18 12:00 Wound Care [Nursing Referral for Wound Care] Routine Comment: Physician Instructions: Reason For Exam: prevention Diagnosis - Discharge Diagnosis (1) Closed comminuted intertrochanteric fracture of left femur Status: Acute Priority: High (2) Diabetes mellitus Status: Acute Priority: Medium (3) Hypertension Status: Acute Priority: Medium (4) Acute on chronic renal insufficiency Status: Acute Priority: Medium Hospital Course - Lab Results Lab Results: Micro Results 11/23/18 01:00 Blood-Venous Blood Culture - Preliminary NO GROWTH AFTER 48 HOURS 11/23/18 01:00 Blood-Venous Blood Culture - Preliminary NO GROWTH AFTER 48 HOURS 11/23/18 13:35 Urine,Clean Catch Urine Culture - Final Morg Morganii Ss Morganii 11/19/18 09:33 Naris MRSA Culture (Admit) - Final MRSA NOT DETECTED Most Recent Lab Values WBC 9.7 K/uL (4.8-10.8) 11/23/18 04:26 RBC 2.78 Mil/uL (3.80-5.20) L 11/23/18 04:26 Hgb 8.5 g/dL (12.0-16.0) L 11/23/18 04:26 Hct 25.5 % (34.0-47.0) L 11/23/18 04:26 MCV 91.9 fl (81.0-99.0) 11/23/18 04:26 MCH 30.7 pg (27.0-31.0) 11/23/18 04:26 MCHC 33.4 g/dL (33.0-37.0) 11/23/18 04:26 RDW 16.1 % (11.5-14.5) H 11/23/18 04:26 Plt Count 156 K/uL (130-400) 11/23/18 04:26 MPV 9.7 fl (7.2-11.7) 11/20/18 08:30 Neut % (Auto) 84.3 % (50.0-75.0) H 11/20/18 08:30 Lymph % (Auto) 6.9 % (20.0-40.0) L 11/20/18 08:30 [place] % (Auto) 6.8 % (0.0-10.0) 11/20/18 08:30 Eos % (Auto) 1.6 % (0.0-4.0) 11/20/18 08:30 Baso % (Auto) 0.4 % (0.0-2.0) 11/20/18 08:30 Neut # (Auto) 8.4 K/uL (1.8-7.0) H 11/20/18 08:30 Lymph # (Auto) 0.7 K/uL (1.0-4.3) L 11/20/18 08:30 [place] # (Auto) 0.7 K/uL (0.0-0.8) 11/20/18 08:30 Eos # (Auto) 0.2 K/uL (0.0-0.7) 11/20/18 08:30 Baso # (Auto) 0.0 K/uL (0.0-0.2) 11/20/18 08:30 Total Counted Cancelled 11/19/18 05:00 Neutrophils % (Manual) 90 % (42-75) H 11/18/18 14:30 Band Neutrophils % Cancelled 11/19/18 05:00 Lymphocytes % (Manual) 6 % (20-50) L 11/18/18 14:30 Reactive Lymphs % Cancelled 11/19/18 05:00 Monocytes % (Manual) 3 % (0-10) 11/18/18 14:30 Eosinophils % (Manual) 1 % (0-7) 11/18/18 14:30 Basophils % (Manual) Cancelled 11/19/18 05:00 Metamyelocytes % Cancelled 11/19/18 05:00 Myelocytes % Cancelled 11/19/18 05:00 Promyelocytes % Cancelled 11/19/18 05:00 Blast Cells % Cancelled 11/19/18 05:00 Plasma Cell % (Manual) Cancelled 11/19/18 05:00 Nucleated RBC % Cancelled 11/19/18 05:00 Hypersegmented Polys Cancelled 11/19/18 05:00 Smudge Cells Cancelled 11/19/18 05:00 Toxic Granulation Cancelled 11/19/18 05:00 Dohle Bodies Cancelled 11/19/18 05:00 Xu Rods Cancelled 11/19/18 05:00 Platelet Estimate Normal (NORMAL) 11/18/18 14:30 Plt Clumps, EDTA Cancelled 11/19/18 05:00 Large Platelets Cancelled 11/19/18 05:00 Giant Platelets Cancelled 11/19/18 05:00 RBC Morphology Cancelled 11/19/18 05:00 Polychromasia Cancelled 11/19/18 05:00 Hypochromasia (manual) Cancelled 11/19/18 05:00 Poikilocytosis (manual Cancelled 11/19/18 05:00 Basophilic Stippling Cancelled 11/19/18 05:00 Anisocytosis (manual) Slight 11/18/18 14:30 Microcytosis (manual) Cancelled 11/19/18 05:00 Macrocytosis (manual) Cancelled 11/19/18 05:00 Spherocytes Cancelled 11/19/18 05:00 Sickle Cells Cancelled 11/19/18 05:00 Target Cells Cancelled 11/19/18 05:00 Tear Drop Cells Cancelled 11/19/18 05:00 Ovalocytes Slight 11/18/18 14:30 Stomatocytes Cancelled 11/19/18 05:00 Helmet Cells Cancelled 11/19/18 05:00 [place] Bodies Cancelled 11/19/18 05:00 [place] Cells Cancelled 11/19/18 05:00 Acanthocytes (Spur) Cancelled 11/19/18 05:00 Rouleaux Cancelled 11/19/18 05:00 Schistocytes Cancelled 11/19/18 05:00 PT 12.8 Seconds (9.8-13.1) 11/18/18 14:30 INR 1.1 11/18/18 14:30 Sodium 136 mmol/l (132-148) 11/23/18 04:26 Potassium 4.4 MMOL/L (3.6-5.0) 11/23/18 04:26 Chloride 109 mmol/L (98-107) H 11/23/18 04:26 Carbon Dioxide 20 mmol/L (22-30) L 11/23/18 04:26 Anion Gap 11 (10-20) 11/23/18 04:26 BUN 46 mg/dl (7-17) H 11/23/18 04:26 Creatinine 2.0 mg/dl (0.7-1.2) H 11/23/18 04:26 Est GFR ( Amer) 29 11/23/18 04:26 Est GFR (Non-Af Amer) 24 11/23/18 04:26 POC Glucose (mg/dL) 110 mg/dL (65-110) 11/24/18 05: Random Glucose 108 mg/dL (65-105) H 11/23/18 04:26 Calcium 8.1 mg/dL (8.4-10.2) L 11/23/18 04:26 Total Bilirubin 0.7 mg/dl (0.2-1.3) 11/19/18 05:00 AST 33 U/L (14-36) 11/19/18 05:00 ALT 21 U/L (9-52) 11/19/18 05:00 Alkaline Phosphatase 81 U/L (38-126) 11/19/18 05:00 Troponin I 0.0660 ng/mL (0.00-0.120) 11/19/18 21:50 Total Protein 6.5 G/DL (6.3-8.2) 11/19/18 05:00 Albumin 3.4 g/dL (3.5-5.0) L 11/19/18 05:00 Globulin 3.2 gm/dL (2.2-3.9) 11/19/18 05:00 Albumin/Globulin Ratio 1.1 (1.0-2.1) 11/19/18 05:00 TSH 3rd Generation 0.51 mIU/ML (0.46-4.68) 11/19/18 05:00 Urine Color Yellow (YELLOW) 11/23/18 13:35 Urine Clarity Slighty-cloudy (Clear) 11/23/18 13:35 Urine pH 6.0 (5.0-8.0) 11/23/18 13:35 Ur Specific [place] 1.013 (1.003-1.030) 11/23/18 13:35 Urine Protein 100 mg/dL (NEGATIVE) 11/23/18 13:35 Urine Glucose (UA) Neg mg/dL (NEGATIVE) 11/23/18 13:35 Urine Ketones Negative mg/dL (NEGATIVE) 11/23/18 13:35 Urine Blood Negative (NEGATIVE) 11/23/18 13:35 Urine Nitrate Negative (NEGATIVE) 11/23/18 13:35 Urine Bilirubin Negative (NEGATIVE) 11/23/18 13:35 Urine Urobilinogen 0.2-1.0 mg/dL (0.2-1.0) 11/23/18 13:35 Ur Leukocyte Esterase Mod Jennifer/uL (Negative) 11/23/18 13:35 Urine RBC (Auto) 1 /hpf (0-3) 11/23/18 13:35 Urine Microscopic WBC 13 /hpf (0-5) H 11/23/18 13:35 Ur Squamous Epith Cells 5 /hpf (0-5) 11/23/18 13:35 Urine Bacteria Occ (<OCC) H 11/23/18 13:35 Stool Occult Blood Negative (NEGATIVE) 11/24/18 06:02 Blood Type B POSITIVE 11/18/18 20:01 Antibody Screen Negative 11/18/18 20:01 Crossmatch See Detail 11/18/18 20:01 BBK History Checked Patient has bt 11/18/18 20:01 Discharge Exam - Head Exam Head Exam: ATRAUMATIC, NORMAL INSPECTION, NORMOCEPHALIC Discharge Plan - Follow Up Plan Condition: FAIR Disposition: REHAB FACILITY/REHAB UNIT Referrals: Laverne Flynn MD [Primary Care Provider] -
--- NOTE | 2018-11-28 13:34 | PQF ---
PROVIDER RESPONSE TEXT: Anemia due to acute blood loss REVIEWER QUERY TEXT: Anemia Type Anemia is documented in the Medical Record. Please specify the cause (includes suspected or probable cause) Such as: -- Due to acute blood loss -- Due to chronic blood loss -- Due to iron deficiency -- Due to postoperative blood loss -- Due to chronic disease -- Other, please specify H/H: 12.5/38.7->11.1/34.4->8.6/26.5->7.3/22.1 11/19 Op note; Pre-Op: Dx: Displaced left hip intertrochanteric fracture. Post Op Dx: Displaced left hip intertrochanteric fracture. Procedure : Left hip intertrochanteric fracture intramedullary nail fixation, short Synthes TFN nail transfused: Leuk-reduced RBC The patient's Clinical Indicators include: -- Query created by: Gladys Malin on 11/21/2018 11:05 AM Electronically signed by: Laverne Flynn MD 11/28/2018 1:32 PM
--- NOTE | 2018-11-28 13:34 | PQF ---
PROVIDER RESPONSE TEXT: DM type 2 REVIEWER QUERY TEXT: Diabetes Type Physician?s Documentation Request This Form is Not a Permanent Document in the Medical Record Pt Name: LUIS CARLOS BARCLAY MR #: [id number] Payor: MEDICARE PART A Unit/Bed: H.ICU/CCU-H432-1 Adm Date: 11/18/2018 3:40:00 PM Reviewer: Gladys Malin Ext. Query Date: 11/21/2018 11:34:27 AM Diabetes Type [id number] By submitting this query, we are merely seeking further clarification of documentation to accurately reflect all conditions that you are monitoring, evaluating, treating or that extend the hospitalizati on or utilize additional resources of care. Please utilize your independent clinical judgment when ad dressing the question(s) below. Dear Doctor Laverne Flynn, The patient?s Clinical Indicators include: --- Diabetes is documented in the Medical Record. Please specify the type Such as: -- Type I diabetes mellitus -- Type II diabetes mellitus -- Diabetes due to drug or chemicals -- Diabetes due to an underlying medical condition -- Other, please specify H and P includes: hx.: DM Type 2 Cardiology note includes: hx. DM Type 1 PLEASE DOCUMENT ANY ADDITIONAL DIAGNOSES AND/OR SPECIFICITY IN THE PROGRESS NOTES AND/OR DISCHARGE CLEMENTS MMARY. Clinically unable to determine/unknown Disagree with the above request Need to discuss Query created by: Gladys Malin on 11/21/2018 11:34 AM Electronically signed by: Laverne Flynn MD 11/28/2018 1:32 PM
--- NOTE | 2018-11-28 13:34 | PQF ---
PROVIDER RESPONSE TEXT: DM with hyperglycemia REVIEWER QUERY TEXT: Diabetic Associated Manifestations Physician?s Documentation Request This Form is Not a Permanent Document in the Medical Record Pt Name: LUIS CARLOS BARCLAY MR #: [id number] Payor: MEDICARE PART A Unit/Bed: H.ICU/CCU-H432-1 Adm Date: 11/18/2018 3:40:00 PM Reviewer: Gladys Malin Ext. Query Date: 11/21/2018 11:41:59 AM Diabetic Associated Manifestations [id number] By submitting this query, we are merely seeking further clarification of documentation to accurately reflect all conditions that you are monitoring, evaluating, treating or that extend the hospitalizati on or utilize additional resources of care. Please utilize your independent clinical judgment when ad dressing the question(s) below. Dear Doctor Laverne Flynn, The patient?s Clinical Indicators include: -- Please specify any manifestations associated / due to diabetes Such as: --DM with Hyperglycemia -- Diabetes with renal manifestation -- Diabetes with neurologic manifestation -- Diabetes with ophthalmic manifestation -- Diabetes with peripheral circulatory manifestation -- Other, please specify POC:90->162->259->157->190->169->195->235 Random glucose: 87->248->135->130 -Insulin PLEASE DOCUMENT ANY ADDITIONAL DIAGNOSES AND/OR SPECIFICITY IN THE PROGRESS NOTES AND/OR DISCHARGE CLEMENTS MMARY. Clinically unable to determine/unknown Disagree with the above request Need to discuss Query created by: Gladys Malin on 11/21/2018 11:41 AM Electronically signed by: Laverne Flynn MD 11/28/2018 1:32 PM
--- NOTE | 2018-11-28 13:34 | PQF ---
PROVIDER RESPONSE TEXT: CKD stage 4 REVIEWER QUERY TEXT: Kidney Disease, Chronic CKD Stage Chronic Kidney Disease (CKD) is documented in the Medical Record. Please specify the disease stage ( includes probable or suspected) if in agreement versus CKD ruled out: Such as: -- Chronic kidney disease Stage 1 -- Chronic kidney disease Stage 2 -- Chronic kidney disease Stage 3 -- Chronic kidney disease Stage 4 -- Chronic kidney disease Stage 5 -- Chronic kidney disease Stage 5, requiring dialysis -- End Stage Renal Disease -- Other, please specify Creatinine: 2.5->2.2->2.4->2.3 Est GFR ( Amer):22->26->24->25 Est GFR (Non - Af- Amer): 19->22->19->20 H and P: includes:Hx Chronic Kidney Disease: No 11/20: Cardiology progress note includes: TEA ON CRF - IVF's Stages are defined by the [employer] as follows: CKD Stage I GFR >= 90 ml / min per 1.73 m2 and persistent albuminuria CKD Stage 2 GFR between 60 and 89 with persistent albuminuria CKD Stage 3 GFR between 30 and 59 CKD Stage 4 GFR between 15 and 29 CKD Stage 5 GFR between <15 or End Stage Renal Disease The patient's Clinical Indicators include: ---- Query created by: Gladys Malin on 11/21/2018 11:31 AM Electronically signed by: Laverne Flynn MD 11/28/2018 1:32 PM
== END 2018-11-24 10:27 | DRG 481 ==
LOC: SUPCPDRO 14:12 → H.ER 14:12 → H.ERHOLD 15:40 → H.MEDSURG1 18:22 → H.ICU/CCU 11-19 14:01 → H.MEDSURG1 11-23 17:40
PROVIDERS: ADMIT Internal Medicine; ATTEND Internal Medicine
PROC: 2W6PXZZ Traction of Left Upper Leg (ICD-10-PCS; 2018-11-19)
PROC: 0QS736Z Reposition Left Upper Femur with Intramedullary Internal Fixation Device, Percutaneous Approach (ICD-10-PCS; principal; 2018-11-19 11:00)
PROC: 30233N1 Transfusion of Nonautologous Red Blood Cells into Peripheral Vein, Percutaneous Approach (ICD-10-PCS; 2018-11-21)
DX: S72.142A Displaced intertrochanteric fracture of left femur, initial encounter for closed fracture (principal); N17.9 Acute kidney failure, unspecified; D62 Acute posthemorrhagic anemia; N18.4 Chronic kidney disease, stage 4 (severe); Z79.4 Long term (current) use of insulin; M81.0 Age-related osteoporosis without current pathological fracture; Z85.3 Personal history of malignant neoplasm of breast; I12.9 Hypertensive chronic kidney disease with stage 1 through stage 4 chronic kidney disease, or unspecified chronic kidney disease; W01.0XXA Fall on same level from slipping, tripping and stumbling without subsequent striking against object, initial encounter; M21.152 Varus deformity, not elsewhere classified, left hip; E11.22 Type 2 diabetes mellitus with diabetic chronic kidney disease; E11.65 Type 2 diabetes mellitus with hyperglycemia; E11.319 Type 2 diabetes mellitus with unspecified diabetic retinopathy without macular edema

== ENCOUNTER 2018-11-24 10:13 | Inpatient (IN) | payer MEDICARE, MEDICAID ==
[2018-11-24 10:13] VITALS: BMI 35.4
[2018-11-24] MEDS ORDERED: Artificial Tears Opht Soln OU PRN (10:58)
[2018-11-24] MEDS ORDERED: Pneumococcal 23-Valent Vaccine IM ONE (11:24)
[2018-11-24] MEDS: Insulin Lispro (humaLOG) 100 Units/ml Inj SC SCH ×3 (11:51→21:20)
[2018-11-24] MEDS: Ofloxacin Ophth 0.3% Soln OS SCH ×2 (12:32→16:42)
[2018-11-24 12:34] LABS: HEMOGLOBIN 9.5 g/dL (12.0-16.0); MEAN CELL VOLUME 93.4 fl (81.0-99.0); MEAN CORPUSCULAR HEMOGLOBIN 30.5 pg (27.0-31.0); MEAN CORPUSCULAR HGB CONC 32.7 g/dL (33.0-37.0); RBC 3.1 Mil/uL (3.80-5.20); WHITE BLOOD COUNT 11.5 K/uL (4.8-10.8)
[2018-11-24 12:53] LABS: ALB/GLOB RATIO 0.9 (1.0-2.1); CALCIUM 8.3 mg/dL (8.4-10.2)
[2018-11-24] MEDS ORDERED: Brimonidine 0.2% 50 DROP/5 ML BOTTLE OU SCH (17:00)
--- NOTE | 2018-11-24 17:17 | PCM.OPOC ---
Physiatry Overall Plan of Care - Overall Plan of Care Estimated Length of Stay in Weeks: 3 Rehab Impairment: Mobility, Gait, Balance, Coordination Etiologic Diagnosis: Hip/Knee Surgery Rehab/Medical Prognosis: Fair - Anticipated Interventions Physical Therapy:: Yes Number of Hours: 1.5 Number of times per week: 6 Number of Week(s) Duration: 3 Occupational Therapy:: Yes Number of Hours: 1.5 Number of times per week: 6 Number of Week(s) Duration: 3 Speech Therapy:: Yes Number of Hours: 0.5 Number of times per week: 5 Number of Week(s) Duration: 3 Recreational Therapy:: Yes Number of Hours: 0.5 Number of times per week: 5 Number of Week(s) Duration: 3 - Therapy Goals Bed Mobility: Contact Guard Ambulation: Supervision Functional Positional Changes:: Supervision - Functional Status Prior to Admission: independent but multiple falls given poor vision Current Status: assistance with ADLs and ambulation - Functional Outcomes Functional Outcomes: to be determined - Discharge Plan Identification of Barriers to Discharge: Home Situation Discharge Destination: Home
--- NOTE | 2018-11-24 17:20 | PCM.CPAPS ---
History of Present Illness - History of Present Illness History of Present Illness: Dr Herrera PMR consultation on Angy Yip, born 1940 who has been admitted to [facility] after a fall with resultant left hip fracture. S/P ORIF by Dr Mock. Review of Systems - Constitutional Constitutional: absent: Chills - EENT Eyes: Loss of Vision Ears: Decreased Hearing Nose/Mouth/Throat: absent: Nasal Congestion, Nasal Discharge - Cardiovascular Cardiovascular: absent: Chest Pain - Respiratory Respiratory: absent: Dyspnea, Hemoptysis - Gastrointestinal Gastrointestinal: absent: Belching, Bloating - Musculoskeletal Musculoskeletal: absent: Neck Pain - Neurological Neurological: absent: Abnormal Movements 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 - RENAL Hx Chronic Kidney Disease: No Other/Comment: chronic renal insufficiency - ENDOCRINE/METABOLIC Hx Diabetes Mellitus Type 2: Yes - HEMATOLOGICAL/ONCOLOGICAL Hx Anemia: Yes - INTEGUMENTARY Hx Dermatological Problems: No Other/Comment: skin tear left groin sacrum ecchymosis lt hip i/l left hip x2 - MUSCULOSKELETAL/RHEUMATOLOGICAL Hx Arthritis: Yes - GASTROINTESTINAL Hx Gastrointestinal Disorders: Yes Hx Gastroesophageal Reflux: Yes Other/Comment: 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) - GENITOURINARY/GYNECOLOGICAL Hx Genitourinary Disorders: Yes Hx Urinary Tract Infection: Yes Other/Comment: Uterine fibriods - PSYCHIATRIC Hx Substance Use: No - SURGICAL HISTORY Hx Eye Surgery: Yes Hx Mastectomy: Yes (rt breast mastectomy) - ANESTHESIA Hx Anesthesia: Yes Meds Allergies/Adverse Reactions: Allergies Allergy/AdvReac Type Severity Reaction Status Date / Time No Known Allergies Allergy Verified 12/02/17 19:45 - Medications Medications: Current Medications Acetaminophen (Tylenol 325mg Tab) 650 mg PO Q6 PRN PRN Reason: Pain, Mild (1-3) Acetaminophen (Tylenol 325mg Tab) 650 mg PO Q6 PRN PRN Reason: Fever >100.4 F Allopurinol (Zyloprim) 100 mg PO DAILY [facility] Artificial Tears (Artificial Tears) 2 drop OU Q6 PRN PRN Reason: Dry eyes Aspirin (Aspirin Chewable) 81 mg PO DAILY [facility] Calcium Carbonate (Oscal) 500 mg PO BIDWM [facility] Last Admin: 11/24/18 16:42 Dose: 500 mg Carvedilol (Coreg) 3.125 mg PO Q12 [facility] Cyanocobalamin (Vitamin B12 1000 Mcg Tab) 1,000 mcg PO DAILY [facility] Diltiazem HCl (Cardizem Cd) 120 mg PO DAILY [facility] Famotidine (Pepcid) 20 mg PO HS [facility] Heparin Sodium (Porcine) (Heparin) 5,000 units SC Q12 [facility]; Protocol Home Med (Patient's Own Medication) 1 unit OU [facility] Home Med (Patient's Own Medication) 1 unit PO 2200 [facility] Home Med (Patient's Own Medication) 1 unit PO [facility] Insulin Human Lispro (Humalog) 0 units SC ACHS [facility]; Protocol Last Admin: 11/24/18 16:41 Dose: Not Given Insulin Lispro Protam/Lispro Human (Humalog Mix 75/25) 8 units SC DAILY [facility] Insulin Lispro Protam/Lispro Human (Humalog Mix 75/25) 4 units SC HS [facility] Latanoprost (Xalatan Opht) 1 drop OU HS [facility] Ofloxacin (Ocuflox Ophth 0.3%) 1 drop OS TID [facility] Last Admin: 11/24/18 16:42 Dose: 1 drop Ondansetron HCl (Zofran Inj) 4 mg IVP Q6 PRN PRN Reason: Nausea/Vomiting Oxycodone HCl (Oxycontin Extended Release Tab) 10 mg PO Q12 [facility] Stop: 11/27/18 21:01 Oxycodone/Acetaminophen (Percocet 5/325 Mg Tab) 1 tab PO Q4 PRN PRN Reason: pain [id number] Stop: 11/27/18 17:15 Pantoprazole Sodium (Protonix Inj) 40 mg IVP DAILY [facility] Potassium Chloride (Klor-Con 10) 10 meq PO DAILY [facility] Prednisolone Acetate (Pred Forte 1% Opht Susp) 1 drop OS DAILY [facility] Senna/Docusate Sodium (Senokot S 50 Mg-8.6 Mg) 2 tab PO HS [facility] Tramadol HCl (Ultram) 50 mg PO Q6 PRN PRN Reason: Pain, moderate (4-7) Physical Exam - Constitutional Appears: No Acute Distress, Older Than Stated Age - Head Exam Head Exam: ATRAUMATIC, NORMAL INSPECTION, NORMOCEPHALIC - ENT Exam ENT Exam: Mucous Membranes Moist - Respiratory Exam Respiratory Exam: NORMAL BREATHING PATTERN - Cardiovascular Exam Cardiovascular Exam: REGULAR RHYTHM - GI/Abdominal Exam GI & Abdominal Exam: Distended. absent: Firm - Extremities Exam Extremities exam: Positive for: pedal edema (left more than right). Negative for: calf tenderness - Neurological Exam Neurological exam: Alert - Skin Skin Exam: Warm (left hip/thigh bruising) Results - Vital Signs Recent Vital Signs: Last Vital Signs Temp Pulse 84 11/24/18 10:54 Resp 19 11/24/18 10:54 BP Pulse Ox - Labs Result Diagrams: 11/24/18 12:15 11/24/18 12:15 Labs: Laboratory Results - last 24 hr 11/24/18 11/24/18 11/24/18 11:16 12:15 12:15 WBC 11.5 H RBC 3.10 L Hgb 9.5 L Hct 29.0 L MCV 93.4 MCH 30.5 MCHC 32.7 L RDW 16.0 H Plt Count 207 Sodium 136 Potassium 4.1 Chloride 107 Carbon Dioxide 18 L Anion Gap 15 BUN 43 H Creatinine 1.7 H Est GFR ( Amer) 35 Est GFR (Non-Af Amer) 29 POC Glucose (mg/dL) 106 Random Glucose 94 Calcium 8.3 L Magnesium 1.6 Total Bilirubin 1.2 AST 24 ALT 12 Alkaline Phosphatase 92 Total Protein 6.3 Albumin 3.0 L Globulin 3.2 Albumin/Globulin Ratio 0.9 L 11/24/18 15:55 WBC RBC Hgb Hct MCV MCH MCHC RDW Plt Count Sodium Potassium Chloride Carbon Dioxide Anion Gap BUN Creatinine Est GFR ( Amer) Est GFR (Non-Af Amer) POC Glucose (mg/dL) 127 H Random Glucose Calcium Magnesium Total Bilirubin AST ALT Alkaline Phosphatase Total Protein Albumin Globulin Albumin/Globulin Ratio Assessment & Plan - Assessment and Plan (Free Text) Assessment: PT/OT to continue to help increase functional independence Team conference for d/c planning Pain: will obviously stop the IV morphine. Put on low dose oxycontin and adjust the prn medications Vascular: no evidence of DVT GI: No evidence of constipation or diarrhea Patient is an excellent acute rehabilitation candidate and will have focused pain management, wound care, PT, OT and recreational therapy to help facilitate a safe and appropriate d/c plan - Functional Status Prior to Admission: independent but + falls Current Status: needs assistance for ADLs and ambulation Impairment Code: 08.11
[2018-11-24] MEDS: VESICARE 5 MG PO SCH (21:33)
[2018-11-24] MEDS: Artificial Tears Opht Soln OU SCH (21:34)
[2018-11-24] MEDS: Insulin Lispro Mix 75/25 100 units/ml (HumaLog) 10ml SC SCH (21:36)
[2018-11-24] MEDS: oxyCODONE 10 mg ER Tab (oxyCONTIN) PO SCH (21:37)
[2018-11-24] MEDS: Docusate-Senna 50 mg-8.6 mg Tab PO SCH (21:38)
[2018-11-24] MEDS: Latanoprost 0.005% Opht SOUTION OU SCH (21:43)
[2018-11-24] MEDS: COMBIGAN PO SCH (21:44)
[2018-11-24] MEDS: AZOPT 1% OU SCH (21:45)
[2018-11-25] MEDS: Insulin Lispro (humaLOG) 100 Units/ml Inj SC SCH ×4 (06:53→21:16)
[2018-11-25] MEDS ORDERED: Potassium Chloride 10 mEq ER Tab PO SCH (09:00)
[2018-11-25] MEDS: Artificial Tears Opht Soln OU SCH ×4 (09:03→21:13)
[2018-11-25] MEDS: diltiaZEM 120 mg/24 Hours CD Cap PO SCH (09:05)
[2018-11-25] MEDS: Ofloxacin Ophth 0.3% Soln OS SCH ×3 (09:11→21:18)
[2018-11-25] MEDS: Insulin Lispro Mix 75/25 100 units/ml (HumaLog) 10ml SC SCH ×2 (09:17→21:16)
[2018-11-25] MEDS: Pantoprazole 40 mg EC Tab PO SCH (09:19)
[2018-11-25] MEDS: PrednisoLONE 1% OPTH SUSP OS SCH (09:23)
[2018-11-25] MEDS: oxyCODONE 10 mg ER Tab (oxyCONTIN) PO SCH ×2 (09:25→21:20)
[2018-11-25] MEDS: COMBIGAN PO SCH (10:26)
[2018-11-25] MEDS: AZOPT 1% OU SCH (10:26)
[2018-11-25] MEDS: Oxycodone/Acetaminophen 5/325 mg Tab PO PRN (12:16)
--- NOTE | 2018-11-25 13:21 | CP.PCM.HP ---
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 - RENAL Hx Chronic Kidney Disease: No Other/Comment: chronic renal insufficiency - ENDOCRINE/METABOLIC Hx Diabetes Mellitus Type 2: Yes - HEMATOLOGICAL/ONCOLOGICAL Hx Anemia: Yes - INTEGUMENTARY Hx Dermatological Problems: No Other/Comment: skin tear left groin sacrum ecchymosis lt hip i/l left hip x2 - MUSCULOSKELETAL/RHEUMATOLOGICAL Hx Arthritis: Yes - GASTROINTESTINAL Hx Gastrointestinal Disorders: Yes Hx Gastroesophageal Reflux: Yes Other/Comment: 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) - GENITOURINARY/GYNECOLOGICAL Hx Genitourinary Disorders: Yes Hx Urinary Tract Infection: Yes Other/Comment: Uterine fibriods - PSYCHIATRIC Hx Substance Use: No - SURGICAL HISTORY Hx Eye Surgery: Yes Hx Mastectomy: Yes (rt breast mastectomy) - ANESTHESIA Hx Anesthesia: Yes Meds Allergies/Adverse Reactions: Allergies Allergy/AdvReac Type Severity Reaction Status Date / Time No Known Allergies Allergy Verified 12/02/17 19:45 Results - Vital Signs Recent Vital Signs: Last Vital Signs Temp 97.5 F L 11/25/18 08:06 Pulse 84 11/25/18 09:08 Resp 19 11/25/18 08:06 BP 145/62 11/25/18 09:08 Pulse Ox 97 11/25/18 08:06 - Labs Result Diagrams: 11/24/18 12:15 11/24/18 12:15 Labs: Laboratory Results - last 24 hr 11/24/18 11/24/18 11/25/18 15:55 20:51 06:39 POC Glucose (mg/dL) 127 H 129 H 113 H 11/25/18 11:57 POC Glucose (mg/dL) 109
[2018-11-25] MEDS: VESICARE 5 MG PO SCH (21:21)
[2018-11-25] MEDS: Docusate-Senna 50 mg-8.6 mg Tab PO SCH (21:22)
[2018-11-25] MEDS: Latanoprost 0.005% Opht SOUTION OU SCH (21:27)
[2018-11-25] MEDS: COMBIGAN OD SCH (21:48)
[2018-11-25] MEDS: AZOPT 1% OD SCH (21:48)
[2018-11-26] MEDS: Insulin Lispro (humaLOG) 100 Units/ml Inj SC SCH ×4 (06:52→21:49)
[2018-11-26] MEDS: diltiaZEM 120 mg/24 Hours CD Cap PO SCH (09:40)
[2018-11-26] MEDS: Pantoprazole 40 mg EC Tab PO SCH (09:42)
[2018-11-26] MEDS: Insulin Lispro Mix 75/25 100 units/ml (HumaLog) 10ml SC SCH ×2 (09:43→21:17)
[2018-11-26] MEDS: PrednisoLONE 1% OPTH SUSP OS SCH (09:45)
[2018-11-26] MEDS: AZOPT 1% OD SCH ×2 (09:47→21:55)
[2018-11-26] MEDS: Artificial Tears Opht Soln OU SCH ×4 (09:48→21:20)
[2018-11-26] MEDS: COMBIGAN OD SCH ×2 (09:49→22:41)
[2018-11-26] MEDS: Ofloxacin Ophth 0.3% Soln OS SCH ×3 (09:50→21:46)
[2018-11-26] MEDS: oxyCODONE 10 mg ER Tab (oxyCONTIN) PO SCH ×2 (09:52→21:24)
[2018-11-26] MEDS: Oxycodone/Acetaminophen 5/325 mg Tab PO PRN (10:04)
--- NOTE | 2018-11-26 14:06 | CP.PCM.PN ---
Subjective - Date & Time of Evaluation Date of Evaluation: 11/26/18 - Subjective Subjective: seen and examined at bed side pt continued to complain left hip pain with attempt to move at the left hi.....but no complaints. Objective - Vital Signs/Intake and Output Vital Signs (last 24 hours): Temp Pulse Resp BP Pulse Ox 98.7 F 85 20 138/55 L 99 11/26/18 10:00 11/26/18 10:00 11/26/18 10:00 11/26/18 10:00 11/26/18 10:00 - Medications Medications: Current Medications Acetaminophen (Tylenol 325mg Tab) 650 mg PO Q6 PRN PRN Reason: Pain, Mild (1-3) Last Admin: 11/26/18 05:47 Dose: 650 mg Acetaminophen (Tylenol 325mg Tab) 650 mg PO Q6 PRN PRN Reason: Fever >100.4 F Allopurinol (Zyloprim) 100 mg PO DAILY [facility] Last Admin: 11/26/18 09:41 Dose: 100 mg Artificial Tears (Artificial Tears) 2 drop OU QID [facility] Last Admin: 11/26/18 13:51 Dose: 2 drop Aspirin (Aspirin Chewable) 81 mg PO DAILY [facility] Last Admin: 11/26/18 09:41 Dose: 81 mg Calcium Carbonate (Oscal) 500 mg PO BIDWM [facility] Last Admin: 11/26/18 09:40 Dose: 500 mg Carvedilol (Coreg) 3.125 mg PO Q12 [facility] Last Admin: 11/26/18 09:41 Dose: 3.125 mg Cyanocobalamin (Vitamin B12 1000 Mcg Tab) 1,000 mcg PO DAILY [facility] Last Admin: 11/26/18 09:40 Dose: 1,000 mcg Diltiazem HCl (Cardizem Cd) 120 mg PO DAILY [facility] Last Admin: 11/26/18 09:40 Dose: 120 mg Famotidine (Pepcid) 20 mg PO HS [facility] Last Admin: 11/25/18 21:22 Dose: 20 mg Heparin Sodium (Porcine) (Heparin) 5,000 units SC Q12 [facility]; Protocol Last Admin: 11/26/18 09:42 Dose: 5,000 units Home Med (Patient's Own Medication) 1 unit PO 2200 [facility] Last Admin: 11/25/18 21:21 Dose: 1 unit Home Med (Patient's Own Medication) 1 unit OD [facility] Last Admin: 11/26/18 09:47 Dose: 1 unit Home Med (Patient's Own Medication) 1 unit OD [facility] Last Admin: 11/26/18 09:49 Dose: 1 unit Insulin Human Lispro (Humalog) 0 units SC [facility]; Protocol Last Admin: 11/26/18 12:39 Dose: Not Given Insulin Lispro Protam/Lispro Human (Humalog Mix 75/25) 8 units SC DAILY [facility] Last Admin: 11/26/18 09:43 Dose: 8 units Insulin Lispro Protam/Lispro Human (Humalog Mix 75/25) 4 units SC [facility] Last Admin: 11/25/18 21:16 Dose: 4 units Latanoprost (Xalatan Opht) 1 drop OU [facility] Last Admin: 11/25/18 21:27 Dose: 1 drop Ofloxacin (Ocuflox Ophth 0.3%) 1 drop OS TID@0900,1300,2100 [facility] Last Admin: 11/26/18 13:49 Dose: 1 drop Ondansetron HCl (Zofran Tab) 4 mg PO Q6 PRN PRN Reason: Nausea/Vomiting Oxycodone HCl (Oxycontin Extended Release Tab) 10 mg PO Q12 [facility] Stop: 11/27/18 21:01 Last Admin: 11/26/18 09:52 Dose: 10 mg Oxycodone/Acetaminophen (Percocet 5/325 Mg Tab) 1 tab PO Q4 PRN PRN Reason: pain -04/27 Stop: 11/27/18 17:15 Last Admin: 11/26/18 10:04 Dose: 1 tab Pantoprazole Sodium (Protonix Ec Tab) 40 mg PO DAILY [facility] Last Admin: 11/26/18 09:42 Dose: 40 mg Potassium Chloride (Klor-Con 10) 10 meq PO DAILY [facility] Last Admin: 11/25/18 09:35 Dose: Not Given Prednisolone Acetate (Pred Forte 1% Opht Susp) 1 drop OS DAILY [facility] Last Admin: 11/26/18 09:45 Dose: 1 drop Senna/Docusate Sodium (Senokot S 50 Mg-8.6 Mg) 2 tab PO [facility] Last Admin: 11/25/18 21:22 Dose: 2 tab Tramadol HCl (Ultram) 50 mg PO Q6 PRN PRN Reason: Pain, moderate (4-7) - Labs Labs: 11/24/18 12:15 11/24/18 12:15 Assessment and Plan (1) Acute blood loss anemia Status: Acute (2) Closed comminuted intertrochanteric fracture of left femur Status: Acute (3) Diabetes mellitus Status: Chronic (4) Hip fracture Status: Acute (5) Hypertension Status: Acute - Assessment and Plan (Free Text) Assessment: improving Plan: continue pain management continue physical therapy and occupational therapy
[2018-11-26] MEDS: VESICARE 5 MG PO SCH (21:09)
[2018-11-26] MEDS: Docusate-Senna 50 mg-8.6 mg Tab PO SCH (21:13)
[2018-11-26] MEDS: Latanoprost 0.005% Opht SOUTION OU SCH (22:42)
[2018-11-27] MEDS: Insulin Lispro (humaLOG) 100 Units/ml Inj SC SCH ×4 (07:20→21:59)
[2018-11-27 07:22] LABS: HEMOGLOBIN 8.2 g/dL (12.0-16.0); MEAN CELL VOLUME 93.3 fl (81.0-99.0); MEAN CORPUSCULAR HEMOGLOBIN 31.4 pg (27.0-31.0); MEAN CORPUSCULAR HGB CONC 33.7 g/dL (33.0-37.0); RBC 2.62 Mil/uL (3.80-5.20); WHITE BLOOD COUNT 7.8 K/uL (4.8-10.8)
[2018-11-27 07:29] LABS: CALCIUM 8.3 mg/dL (8.4-10.2)
[2018-11-27] MEDS: oxyCODONE 10 mg ER Tab (oxyCONTIN) PO SCH ×3 (08:34→21:35)
[2018-11-27] MEDS: COMBIGAN OD SCH ×2 (08:35→21:54)
[2018-11-27] MEDS: Pantoprazole 40 mg EC Tab PO SCH (08:35)
[2018-11-27] MEDS: Ofloxacin Ophth 0.3% Soln OS SCH ×3 (08:36→21:41)
[2018-11-27] MEDS: Artificial Tears Opht Soln OU SCH ×2 (08:37→13:34)
[2018-11-27] MEDS: PrednisoLONE 1% OPTH SUSP OS SCH (08:37)
[2018-11-27] MEDS: Insulin Lispro Mix 75/25 100 units/ml (HumaLog) 10ml SC SCH ×2 (08:39→21:43)
[2018-11-27] MEDS: diltiaZEM 120 mg/24 Hours CD Cap PO SCH (08:40)
[2018-11-27] MEDS: AZOPT 1% OD SCH ×2 (08:43→21:46)
[2018-11-27] MEDS ORDERED: Artificial Tears Opht Soln OU SCH (18:00)
[2018-11-27] MEDS ORDERED: [UNRECOGNIZED DRUG - OTHER] OU SCH (18:00)
[2018-11-27] MEDS: Docusate-Senna 50 mg-8.6 mg Tab PO SCH (21:31)
[2018-11-27] MEDS: VESICARE 5 MG PO SCH (21:31)
[2018-11-27] MEDS: REFRESH OU SCH (21:40)
[2018-11-27] MEDS: Latanoprost 0.005% Opht SOUTION OU SCH (22:01)
[2018-11-28] MEDS: diltiaZEM 120 mg/24 Hours CD Cap PO SCH (08:57)
[2018-11-28] MEDS: Insulin Lispro (humaLOG) 100 Units/ml Inj SC SCH ×4 (08:59→21:45)
[2018-11-28] MEDS: Insulin Lispro Mix 75/25 100 units/ml (HumaLog) 10ml SC SCH ×2 (09:00→21:41)
[2018-11-28] MEDS: Ofloxacin Ophth 0.3% Soln OS SCH ×3 (09:04→21:33)
[2018-11-28] MEDS: REFRESH OU SCH ×4 (09:05→22:51)
[2018-11-28] MEDS: AZOPT 1% OD SCH ×2 (09:07→21:39)
[2018-11-28] MEDS: COMBIGAN OD SCH ×2 (09:18→21:47)
[2018-11-28] MEDS: PrednisoLONE 1% OPTH SUSP OS SCH (09:18)
[2018-11-28] MEDS: Pantoprazole 40 mg EC Tab PO SCH (09:19)
[2018-11-28] MEDS: oxyCODONE 10 mg ER Tab (oxyCONTIN) PO SCH ×2 (09:31→21:30)
[2018-11-28] MEDS: Latanoprost 0.005% Opht SOUTION OU SCH (21:28)
[2018-11-28] MEDS: Docusate-Senna 50 mg-8.6 mg Tab PO SCH (21:29)
[2018-11-28] MEDS: VESICARE 5 MG PO SCH (21:52)
[2018-11-29] MEDS: Insulin Lispro (humaLOG) 100 Units/ml Inj SC SCH ×4 (06:54→21:43)
[2018-11-29] MEDS: Pantoprazole 40 mg EC Tab PO SCH (08:08)
[2018-11-29] MEDS: Insulin Lispro Mix 75/25 100 units/ml (HumaLog) 10ml SC SCH ×2 (08:09→21:50)
[2018-11-29] MEDS: diltiaZEM 120 mg/24 Hours CD Cap PO SCH (08:11)
[2018-11-29] MEDS: AZOPT 1% OD SCH ×2 (08:13→22:00)
[2018-11-29] MEDS: PrednisoLONE 1% OPTH SUSP OS SCH (08:14)
[2018-11-29] MEDS: REFRESH OU SCH ×4 (08:16→22:37)
[2018-11-29] MEDS: Ofloxacin Ophth 0.3% Soln OS SCH ×3 (08:16→21:45)
[2018-11-29] MEDS: COMBIGAN OD SCH ×2 (08:17→22:07)
[2018-11-29] MEDS: oxyCODONE 10 mg ER Tab (oxyCONTIN) PO SCH ×2 (08:21→21:28)
--- NOTE | 2018-11-29 10:12 | CP.PCM.PN ---
Subjective - Date & Time of Evaluation Date of Evaluation: 11/29/18 Time of Evaluation: 09:30 - Subjective Subjective: Patient seen and examined OOB to chair with PT. Pain is well controlled. Tolerating PT, ambulating with RW. No new complaints. Objective - Vital Signs/Intake and Output Vital Signs (last 24 hours): Temp Pulse Resp BP Pulse Ox 97.3 F L 77 20 144/77 98 11/29/18 09:32 11/29/18 09:32 11/29/18 09:32 11/29/18 09:32 11/29/18 09:32 - Medications Medications: Current Medications Acetaminophen (Tylenol 325mg Tab) 650 mg PO Q6 PRN PRN Reason: Pain, Mild (1-3) Last Admin: 11/28/18 17:56 Dose: 650 mg Acetaminophen (Tylenol 325mg Tab) 650 mg PO Q6 PRN PRN Reason: Fever >100.4 F Allopurinol (Zyloprim) 100 mg PO DAILY [facility] Last Admin: 11/29/18 08:09 Dose: 100 mg Aspirin (Aspirin Chewable) 81 mg PO DAILY [facility] Last Admin: 11/29/18 08:11 Dose: 81 mg Calcium Carbonate (Oscal) 500 mg PO BIDWM [facility] Last Admin: 11/29/18 08:08 Dose: 500 mg Carvedilol (Coreg) 3.125 mg PO Q12 [facility] Last Admin: 11/29/18 08:07 Dose: 3.125 mg Cyanocobalamin (Vitamin B12 1000 Mcg Tab) 1,000 mcg PO DAILY [facility] Last Admin: 11/29/18 08:06 Dose: 1,000 mcg Diltiazem HCl (Cardizem Cd) 120 mg PO DAILY [facility] Last Admin: 11/29/18 08:11 Dose: 120 mg Famotidine (Pepcid) 20 mg PO HS [facility] Last Admin: 11/28/18 21:29 Dose: 20 mg Heparin Sodium (Porcine) (Heparin) 5,000 units SC Q12 [facility]; Protocol Last Admin: 11/29/18 08:11 Dose: 5,000 units Home Med (Patient's Own Medication) 1 unit PO 2200 [facility] Last Admin: 11/28/18 21:52 Dose: 1 unit Home Med (Patient's Own Medication) 1 unit OD [facility] Last Admin: 11/29/18 08:13 Dose: 1 unit Home Med (Patient's Own Medication) 1 unit OD [facility] Last Admin: 11/29/18 08:17 Dose: 1 unit Home Med (Patient's Own Medication) 1 unit OU QID [facility] Last Admin: 11/29/18 08:16 Dose: 1 unit Insulin Human Lispro (Humalog) 0 units SC [facility]; Protocol Last Admin: 11/29/18 06:54 Dose: Not Given Insulin Lispro Protam/Lispro Human (Humalog Mix 75/25) 8 units SC DAILY [facility] Last Admin: 11/29/18 08:09 Dose: 8 units Insulin Lispro Protam/Lispro Human (Humalog Mix 75/25) [address] [facility] Last Admin: 11/28/18 21:41 Dose: 4 units Latanoprost (Xalatan Opht) 1 drop OU HS [facility] Last Admin: 11/28/18 21:28 Dose: 1 drop Ofloxacin (Ocuflox Ophth 0.3%) 1 drop OS TID@0900,1300,2100 [facility] Last Admin: 11/29/18 08:16 Dose: 1 drop Ondansetron HCl (Zofran Tab) 4 mg PO Q6 PRN PRN Reason: Nausea/Vomiting Oxycodone HCl (Oxycontin Extended Release Tab) 10 mg PO Q12 [facility] Stop: 11/30/18 21:31 Last Admin: 11/29/18 08:21 Dose: 10 mg Pantoprazole Sodium (Protonix Ec Tab) 40 mg PO DAILY [facility] Last Admin: 11/29/18 08:08 Dose: 40 mg Potassium Chloride (Klor-Con 10) 10 meq PO DAILY [facility] Last Admin: 11/25/18 09:35 Dose: Not Given Prednisolone Acetate (Pred Forte 1% Opht Susp) 1 drop OS DAILY [facility] Last Admin: 11/29/18 08:14 Dose: 1 drop Senna/Docusate Sodium (Senokot S 50 Mg-8.6 Mg) [address] [facility] Last Admin: 11/28/18 21:29 Dose: 1 tab Tramadol HCl (Ultram) 50 mg PO Q6 PRN PRN Reason: Pain, moderate (4-7) Last Admin: 11/28/18 11:17 Dose: 50 mg - Labs Labs: 11/27/18 06:05 11/27/18 06:05 - Extremities Exam Additional comments: LLE: mild thigh swelling, compartments soft Dressings CDI Incisions CDI with carmen sensation intact SP/DP/TN motor intact EHL/FHl/TA/G pedal pulse intact calves soft mildly tender b/l Assessment and Plan (1) Closed comminuted intertrochanteric fracture of left femur Assessment & Plan: POD#10 s/p L hip ORIF with IM nail -dressings changed -PT/OT WBAT -DVT ppx -orthopedically stable -will follow while in house -d/w Dr. Mock who agrees with above Status: Acute
--- NOTE | 2018-11-29 13:04 | PCM.PSYTMC ---
Acute Rehab Team Conference - - Vital Signs: Vital Signs (Last 8 Hours): Vital Signs 11/29/18 11/29/18 11/29/18 08:07 08:11 09:00 Temperature 97.2 F L Pulse Rate 77 85 77 Respiratory 20 Rate Blood Pressure 144/78 144/88 144/77 O2 Sat by Pulse Oximetry 11/29/18 11/29/18 09:32 10:27 Temperature 97.3 F L Pulse Rate 77 87 Respiratory 20 Rate Blood Pressure 144/77 O2 Sat by Pulse 98 99 Oximetry Pain: 0 - Consults: Comment: dr. ríos. surgical doctor. armando mahan to see the surgical wound today. noted. - Skin: Incision Site: left hip Dressing Status: Clean, Dry, Intact - Toileting: Toileting: Modified Independent - Bladder Management: Bladder Pattern: Incontinent Voiding Method: Toilet - Transfers: Transfers: Modified Independent - Pain Management: Other Intervention:: on pain management medication - Patient/Family Teaching: Other Intervention:: re: pain management. - Goals/Time Frame: Comment: patient to have pain of 0/10 numeric scale. noted. - Provider: Registered Nurse:: Dallas Abreu Physical Therapy - Bed Mobility Bed Mobility: Verbal Cues, Minimal Assistance Comment: supine to sitting. mod to max A for sit to supine - Transfers Wheelchair to Mat: Verbal Cues, Contact Guard, Minimal Assistance Sit to Stand: Verbal Cues, Contact Guard Comment: RW, with step by step cueing - Ambulation Level of Assistance: Verbal Cues, Contact Guard Distance (ft.): 130 Assistive Devices: Rolling Walker Orthoses: n/a Comment: 115 feet, 130 feet with 180 degree turn and 90 degree turn. -requires CG/min A. -slow segundo with limited weight shifting, increased time in double support phase and groans of pain during gait. -frequent standing rest breaks and requests to sit down and for drinks of water during mobility. -LLE external rotation with limited hip flexion during swing. -requires assistance for walker negotiation and cueing for directional navigation due to impaired vision and unsteady negotiation of walker - Stair Negotiation Stairs: Level of Assistance: Not Tested Comment: patient has ramp to enter home - Standing Balance Static Stand: Contact Guard Assist Comment: RW - Pain Pain (assessed during therapy session): 7 Alleviating Techniques: Medication, Ice, Position Change Comment: LLE from heel to surgical site on lateral L hip - Insight/Carryover Insight/Carryover: Fair - Patient/Family Education Comment: safety, therapy schedule, therapy goals, POC, recovery, participation i n therapy tasks, mobility, pain management. *patient limited by vision, hearing and decreased motivation - Assessment/Plan Assessment: bed/mat mobility with supervision. transfers with RW with supervision. ambulate 200 feet with RW with supervision. 3 4inch training steps with B rails with min A - Goals Timeframe: 7 days Goals: Ms. Yip requires moderate external motivation for participation in tasks as well as increased time for task completion. Patient lacks motivation during therapy session and is limited by pain which patient reports begins at L heel and moves proximally until the surgical site on the lateral L hip. Patient is able to ambulate with reduced assistance today but requires assistance to reposition in chair and motivation to continue with each trial. Patient tolerated passive motion on motomed without complaints. Patient also limited by impaired visionand hearing. PT recommends continued skilled therapy to maximize safety and independence with all mobility s/p L femur fracture s/p OIRIF sustained from fall. PT recommends discharge with 24 hour care at completion of full lemght of stay in acute rehab. - Provider Physical Therapist:: Mecca Ruelas License Number:: [id number] Occupational Therapy - Arousal/Attention/Orientation Level of Consciousness: Awake, Alert Patient Orientation: Person, Place, Time - ADL/IADL Self Feeding: Set-up Help Grooming: Set-up Help Dressing-Upper Ext: Minimal Assistance Dressing-Lower Ext: Moderate Assistance, Maximum Assistance Comment: pt uses lower body adaptive equipment - Sitting Balance Static Sitting: Independent without upper extremity support Dynamic Sitting: Requires supervision, Contact Guard Assist - Transfers Wheelchair to Bed Transfers: Minimal Assistance, Moderate Assistance Toilet Transfers: Moderate Assistance Comment: transfers vary depending upon fatigue/pain - Wheelchair Management Level of Assistance: Minimal Assistance Distance (ft.): 50 - Upper Extremity Status Right Upper Extremity Comment: WFL Left Upper Extremity Comment: WFL - Pain Pain (assessed during therapy session): 7 Alleviating Techniques: Medication, Ice, Position Change Comment: intermittent pain 7/10 in L hip region - Insight/Carryover Insight/Carryover: Fair - Patient/Family Education Comment: therapy schedule, role of OT, goals of therapy, d/c plan, plan of care - Assessment/Plan Assessment: patient is 78 yo female s/p L ORIF . patient completes funtional transfers with overall min A. patient completes lb adls with overall max A and ub adls with min A. pt still requires extensive assist with adls 2' pain, poor ROM in L LE and fear of falling. recommend cont skilled ot services 5-6x/week as per plan of care - Goals Timeframe: 2 weeks Comment: goal intermittent supervision - Provider Occupational Therapist:: Usha Banks License Number: [id number] Recreational Therapy - Participation Participation: Participates in Individual and/or Group Sessions - Attendance Attendance: 3-5 times per week - Activities Leisure Activities: Cards and Games - Socialization Level of Socialization: Initiates/interacts freely with care givers and peer - Assessment Assessment/Plan: Pt is agreeable to participate in recreation therapy sessions following verbal cues for encouragement. Pt participated in modified go-fish card task and required verbal cues for attention to task so that pt can tolerate duration of session. Pt completed task with extended time and required min verbal ceus for carryover of task rules as well. Pt's barriers to participation is decrease arousal level, decrease activity tolerance level, and visual impairments. Pt would benefit from participating in recreation therapy sessions throughout stay on unit to improve diversion from pain and improve activity tolerance level. Will continue to encourage pt's participation. Problems Currently Limiting Participation: impaired vision-L eye blindness, R eye impaired vision, weakness, pain, anxiety, decrease activity tolerance level, decrease leisure awareness level Goals and Time Frame: Pt will tolerate participating in 30 minutes of recreation therapy session with supervision by date of discharge. - Provider Therapist: Afshan Lovelace Nutrition - Current Diet Current Diet/Supplement/Feedings: Regular diet - Appetite Percent Meal Consumed: 50-74% - Assessment/Goals/Time Frame Assessments/Goals/Time Frame: Pt at high nutritional risk. goals: 1. Pt to consume 75-100% of meals. 2. Blood glucoses to be between 70-180 mg/dl. 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 Patient/Family Meeting: CM met with patient and rehab team. Intervention/Goal/Outcome: 1. Goal: 24hr supervision 2. home with VNS and family support? 3. have home health agency re-assess patient for an increase in hours 4. DME needs 5. continue emotional support 6. discuss with team the best plan for patient's discharge as well as discharge date as patient is a Medicare bundled case - Discharge Plan Discharge Plan: Home with services Home Services: [facility] - Provider Provider: Jie Montaño License Number: [id number] Rehabilitation Plan - Treatment Plan Treatment Plan: Physical Therapy, Occupational Therapy, Dietary, Pain Management, Wound Care, Patient/Family Education - Discharge Plan Estimated Date of Discharge: 12/10/18 Discharge to: Home
--- NOTE | 2018-11-29 13:28 | CP.PCM.PN ---
Subjective - Date & Time of Evaluation Date of Evaluation: 11/29/18 Time of Evaluation: 13:26 - Subjective Subjective: Patient seen in the room notes pain but understands that more medication she cannot tolerate and gets dizzy she is making good gains in therapy and is ambulating 130' but is mod. assist for transfers ELOS is to 12/10/18 but may be able to d/c home sooner if makes further progress. Tried to make contact with her daughter via [employer] but no lemon picker. Objective - Vital Signs/Intake and Output Vital Signs (last 24 hours): Temp Pulse Resp BP Pulse Ox 97.3 F L 87 20 144/77 99 11/29/18 09:32 11/29/18 10:27 11/29/18 09:32 11/29/18 09:32 11/29/18 10:27 - Medications Medications: Current Medications Acetaminophen (Tylenol 325mg Tab) 650 mg PO Q6 PRN PRN Reason: Pain, Mild (1-3) Last Admin: 11/28/18 17:56 Dose: 650 mg Acetaminophen (Tylenol 325mg Tab) 650 mg PO Q6 PRN PRN Reason: Fever >100.4 F Allopurinol (Zyloprim) 100 mg PO DAILY [facility] Last Admin: 11/29/18 08:09 Dose: 100 mg Aspirin (Aspirin Chewable) 81 mg PO DAILY [facility] Last Admin: 11/29/18 08:11 Dose: 81 mg Calcium Carbonate (Oscal) 500 mg PO BIDWM [facility] Last Admin: 11/29/18 08:08 Dose: 500 mg Carvedilol (Coreg) 3.125 mg PO Q12 [facility] Last Admin: 11/29/18 08:07 Dose: 3.125 mg Cyanocobalamin (Vitamin B12 1000 Mcg Tab) 1,000 mcg PO DAILY [facility] Last Admin: 11/29/18 08:06 Dose: 1,000 mcg Diltiazem HCl (Cardizem Cd) 120 mg PO DAILY [facility] Last Admin: 11/29/18 08:11 Dose: 120 mg Famotidine (Pepcid) 20 mg PO HS [facility] Last Admin: 11/28/18 21:29 Dose: 20 mg Heparin Sodium (Porcine) (Heparin) 5,000 units SC Q12 [facility]; Protocol Last Admin: 11/29/18 08:11 Dose: 5,000 units Home Med (Patient's Own Medication) 1 unit PO 2200 [facility] Last Admin: 11/28/18 21:52 Dose: 1 unit Home Med (Patient's Own Medication) 1 unit OD REPLAC[facility] BY [facility] Last Admin: 11/29/18 08:13 Dose: 1 unit Home Med (Patient's Own Medication) 1 unit OD REPLACED BY [facility] Last Admin: 11/29/18 08:17 Dose: 1 unit Home Med (Patient's Own Medication) 1 unit OU QID [facility] Last Admin: 11/29/18 12:44 Dose: 1 unit Insulin Human Lispro (Humalog) 0 units SC [facility]; Protocol Last Admin: 11/29/18 11:37 Dose: 1 unit Insulin Lispro Protam/Lispro Human (Humalog Mix 75/25) 8 units SC DAILY [facility] Last Admin: 11/29/18 08:09 Dose: 8 units Insulin Lispro Protam/Lispro Human (Humalog Mix 75/25) 4 units SC [facility] Last Admin: 11/28/18 21:41 Dose: 4 units Latanoprost (Xalatan Opht) 1 drop OU [facility] Last Admin: 11/28/18 21:28 Dose: 1 drop Ofloxacin (Ocuflox Ophth 0.3%) 1 drop OS TID@0900,1300,2100 [facility] Last Admin: 11/29/18 12:48 Dose: 1 drop Ondansetron HCl (Zofran Tab) 4 mg PO Q6 PRN PRN Reason: Nausea/Vomiting Oxycodone HCl (Oxycontin Extended Release Tab) 10 mg PO Q12 [facility] Stop: 11/30/18 21:31 Last Admin: 11/29/18 08:21 Dose: 10 mg Pantoprazole Sodium (Protonix Ec Tab) 40 mg PO DAILY [facility] Last Admin: 11/29/18 08:08 Dose: 40 mg Potassium Chloride (Klor-Con 10) 10 meq PO DAILY [facility] Last Admin: 11/25/18 09:35 Dose: Not Given Prednisolone Acetate (Pred Forte 1% Opht Susp) 1 drop OS DAILY [facility] Last Admin: 11/29/18 08:14 Dose: 1 drop Senna/Docusate Sodium (Senokot S 50 Mg-8.6 Mg) 1 tab PO [facility] Last Admin: 11/28/18 21:29 Dose: 1 tab Tramadol HCl (Ultram) 50 mg PO Q6 PRN PRN Reason: Pain, moderate (4-7) Last Admin: 11/29/18 11:08 Dose: 50 mg - Labs Labs: 11/27/18 06:05 11/27/18 06:05
[2018-11-29] MEDS: Docusate-Senna 50 mg-8.6 mg Tab PO SCH (21:32)
[2018-11-29] MEDS: VESICARE 5 MG PO SCH (21:44)
[2018-11-29] MEDS: Latanoprost 0.005% Opht SOUTION OU SCH (22:21)
[2018-11-30 05:51] LABS: HEMOGLOBIN 7.5 g/dL (12.0-16.0); MEAN CELL VOLUME 91.8 fl (81.0-99.0); MEAN CORPUSCULAR HEMOGLOBIN 30.9 pg (27.0-31.0); MEAN CORPUSCULAR HGB CONC 33.7 g/dL (33.0-37.0); RBC 2.43 Mil/uL (3.80-5.20); RED CELL DISTRIBUTION WIDTH 15.9 % (11.5-14.5)
[2018-11-30 06:09] LABS: CALCIUM 7.9 mg/dL (8.4-10.2)
[2018-11-30] MEDS: Insulin Lispro (humaLOG) 100 Units/ml Inj SC SCH ×4 (07:13→21:21)
[2018-11-30] MEDS: REFRESH OU SCH ×4 (08:41→22:45)
[2018-11-30] MEDS: oxyCODONE 10 mg ER Tab (oxyCONTIN) PO SCH ×2 (08:41→21:13)
[2018-11-30] MEDS: diltiaZEM 120 mg/24 Hours CD Cap PO SCH (08:42)
[2018-11-30] MEDS: AZOPT 1% OD SCH ×2 (08:44→21:34)
[2018-11-30] MEDS: Pantoprazole 40 mg EC Tab PO SCH (08:44)
[2018-11-30] MEDS: Insulin Lispro Mix 75/25 100 units/ml (HumaLog) 10ml SC SCH ×2 (08:45→21:37)
[2018-11-30] MEDS: Ofloxacin Ophth 0.3% Soln OS SCH ×3 (08:45→21:18)
[2018-11-30] MEDS: COMBIGAN OD SCH ×2 (08:46→22:05)
[2018-11-30] MEDS: PrednisoLONE 1% OPTH SUSP OS SCH (08:46)
[2018-11-30 12:06] LABS: BASO # 0.1 K/uL (0.0-0.2); BASO % 0.7 % (0.0-2.0); EOS # 0.2 K/uL (0.0-0.7); EOS % 2.7 % (0.0-4.0); HEMOGLOBIN 8.7 g/dL (12.0-16.0); LYMPH # 0.5 K/uL (1.0-4.3); LYMPH % 5.4 % (20.0-40.0); MEAN CELL VOLUME 93.4 fl (81.0-99.0); MEAN CORPUSCULAR HEMOGLOBIN 31.6 pg (27.0-31.0); MEAN CORPUSCULAR HGB CONC 33.9 g/dL (33.0-37.0); MEAN PLATELET VOLUME 7.9 fl (7.2-11.7); MONO # 0.6 K/uL (0.0-0.8); MONO % 6.5 % (0.0-10.0); NEUT # 7.4 K/uL (1.8-7.0); NEUT % 84.7 % (50.0-75.0); PLATELET COUNT 408 K/uL (130-400); RBC 2.75 Mil/uL (3.80-5.20); RED CELL DISTRIBUTION WIDTH 16.2 % (11.5-14.5); WHITE BLOOD COUNT 8.7 K/uL (4.8-10.8)
[2018-11-30 12:46] LABS: IRON 21 ug/dL (37-170)
[2018-11-30 12:55] LABS: % IRON SATURATION 11 % (20-55); TOTAL IRON BINDING CAPACITY 195 ug/dL (250-450)
[2018-11-30 14:17] LABS: ANISOCYTOSIS SLIGHT; EOSINOPHIL 3 % (0-7); HYPOCHROMIC SLIGHT; LYMPHOCYTE 6 % (20-50); MONOCYTE 7 % (0-10); NEUTROPHIL 84 % (42-75); PLATELET ESTIMATE NORMAL (NORMAL); TOTAL CELLS COUNTED 100
[2018-11-30] MEDS ORDERED: Oxycodone/Acetaminophen 5/325 mg Tab PO PRN (14:50)
[2018-11-30] MEDS ORDERED: Oxycodone/Acetaminophen 5/325 mg Tab PO SCH (16:00)
[2018-11-30 17:43] LABS: FOLATE 8.1 ng/mL
--- NOTE | 2018-11-30 18:21 | CP.PCM.PN ---
Subjective - Date & Time of Evaluation Date of Evaluation: 11/30/18 Time of Evaluation: 18:20 - Subjective Subjective: patient is stable still with pain ambulating 100' in therapy today no resp distress continue current care Objective - Vital Signs/Intake and Output Vital Signs (last 24 hours): Temp Pulse Resp BP Pulse Ox 98.3 F 89 16 115/52 L 97 11/30/18 10:00 11/30/18 10:00 11/30/18 10:00 11/30/18 10:00 11/30/18 10:00 - Medications Medications: Current Medications Acetaminophen (Tylenol 325mg Tab) 650 mg PO Q6 PRN PRN Reason: Pain, Mild (1-3) Last Admin: 11/28/18 17:56 Dose: 650 mg Acetaminophen (Tylenol 325mg Tab) 650 mg PO Q6 PRN PRN Reason: Fever >100.4 F Allopurinol (Zyloprim) 100 mg PO DAILY [facility] Last Admin: 11/30/18 08:42 Dose: 100 mg Aspirin (Aspirin Chewable) 81 mg PO DAILY [facility] Last Admin: 11/30/18 08:44 Dose: 81 mg Calcium Carbonate (Oscal) 500 mg PO BIDWM [facility] Last Admin: 11/30/18 16:54 Dose: 500 mg Carvedilol (Coreg) 3.125 mg PO Q12 [facility] Last Admin: 11/30/18 08:43 Dose: Not Given Cyanocobalamin (Vitamin B12 1000 Mcg Tab) 1,000 mcg PO DAILY [facility] Last Admin: 11/30/18 08:42 Dose: 1,000 mcg Diltiazem HCl (Cardizem Cd) 120 mg PO DAILY [facility] Last Admin: 11/30/18 08:42 Dose: 120 mg Famotidine (Pepcid) 20 mg PO HS [facility] Last Admin: 11/29/18 21:31 Dose: 20 mg Ferrous Sulfate (Feosol) 325 mg PO BID [facility] Last Admin: 11/30/18 16:54 Dose: 325 mg Heparin Sodium (Porcine) (Heparin) 5,000 units SC Q12 [facility]; Protocol Last Admin: 11/30/18 08:42 Dose: 5,000 units Home Med (Patient's Own Medication) 1 unit PO 2200 [facility] Last Admin: 11/29/18 21:44 Dose: 1 unit Home Med (Patient's Own Medication) 1 unit OD AMHS [facility] Last Admin: 11/30/18 08:44 Dose: 1 unit Home Med (Patient's Own Medication) 1 unit OD AMHS [facility] Last Admin: 11/30/18 08:46 Dose: 1 unit Home Med (Patient's Own Medication) 1 unit OU QID [facility] Last Admin: 11/30/18 16:57 Dose: 1 unit Insulin Human Lispro (Humalog) 0 units SC ACHS [facility]; Protocol Last Admin: 11/30/18 16:50 Dose: Not Given Insulin Lispro Protam/Lispro Human (Humalog Mix 75/25) 8 units SC DAILY [facility] Last Admin: 11/30/18 08:45 Dose: 8 units Insulin Lispro Protam/Lispro Human (Humalog Mix 75/25) [address] [facility] Last Admin: 11/29/18 21:50 Dose: 4 units Lactulose (Enulose) 20 gm PO DAILY [facility] Last Admin: 11/30/18 11:29 Dose: 20 gm Latanoprost (Xalatan Opht) 1 drop OU HS [facility] Last Admin: 11/29/18 22:21 Dose: 1 drop Ofloxacin (Ocuflox Ophth 0.3%) 1 drop OS TID@0900,1300,2100 [facility] Last Admin: 11/30/18 13:16 Dose: 1 drop Ondansetron HCl (Zofran Tab) 4 mg PO Q6 PRN PRN Reason: Nausea/Vomiting Last Admin: 11/30/18 13:14 Dose: 4 mg Oxycodone HCl (Oxycontin Extended Release Tab) 10 mg PO Q12 [facility] Stop: 11/30/18 21:31 Last Admin: 11/30/18 08:41 Dose: 10 mg Oxycodone/Acetaminophen (Percocet 5/325 Mg Tab) 1 tab PO Q4 PRN PRN Reason: Pain, severe (8-10) Stop: 12/03/18 16:01 Pantoprazole Sodium (Protonix Ec Tab) 40 mg PO DAILY [facility] Last Admin: 11/30/18 08:44 Dose: 40 mg Potassium Chloride (Klor-Con 10) 10 meq PO DAILY [facility] Last Admin: 11/25/18 09:35 Dose: Not Given Prednisolone Acetate (Pred Forte 1% Opht Susp) 1 drop OS DAILY [facility] Last Admin: 11/30/18 08:46 Dose: 1 drop Senna/Docusate Sodium (Senokot S 50 Mg-8.6 Mg) 1 tab PO HS [facility] Last Admin: 11/29/18 21:32 Dose: 1 tab Tramadol HCl (Ultram) 50 mg PO Q6 PRN PRN Reason: Pain, moderate (4-7) Last Admin: 11/30/18 09:51 Dose: 50 mg - Labs Labs: 11/30/18 11:45 11/30/18 05:40
[2018-11-30] MEDS: VESICARE 5 MG PO SCH (21:16)
[2018-11-30] MEDS: Docusate-Senna 50 mg-8.6 mg Tab PO SCH (21:17)
[2018-11-30] MEDS: Latanoprost 0.005% Opht SOUTION OU SCH (22:17)
[2018-12-01] MEDS: Insulin Lispro (humaLOG) 100 Units/ml Inj SC SCH ×4 (06:57→21:43)
[2018-12-01] MEDS: PrednisoLONE 1% OPTH SUSP OS SCH (08:27)
[2018-12-01] MEDS: COMBIGAN OD SCH ×2 (08:29→21:43)
[2018-12-01] MEDS: Ofloxacin Ophth 0.3% Soln OS SCH ×3 (08:29→21:36)
[2018-12-01] MEDS: oxyCODONE 10 mg ER Tab (oxyCONTIN) PO SCH ×2 (08:30→21:34)
[2018-12-01] MEDS: AZOPT 1% OD SCH ×2 (08:33→21:38)
[2018-12-01] MEDS: diltiaZEM 120 mg/24 Hours CD Cap PO SCH (08:34)
[2018-12-01] MEDS: Insulin Lispro Mix 75/25 100 units/ml (HumaLog) 10ml SC SCH ×2 (08:35→21:39)
[2018-12-01] MEDS: Pantoprazole 40 mg EC Tab PO SCH (08:36)
[2018-12-01] MEDS: REFRESH OU SCH ×4 (09:49→21:30)
[2018-12-01] MEDS: Oxycodone/Acetaminophen 5/325 mg Tab PO PRN ×2 (11:24→15:25)
[2018-12-01] MEDS: VESICARE 5 MG PO SCH (21:31)
[2018-12-01] MEDS: Docusate-Senna 50 mg-8.6 mg Tab PO SCH (21:32)
[2018-12-01] MEDS: Latanoprost 0.005% Opht SOUTION OU SCH (21:48)
[2018-12-02] MEDS: Insulin Lispro (humaLOG) 100 Units/ml Inj SC SCH ×4 (07:12→21:15)
[2018-12-02] MEDS: Pantoprazole 40 mg EC Tab PO SCH (08:45)
[2018-12-02] MEDS: PrednisoLONE 1% OPTH SUSP OS SCH (08:47)
[2018-12-02] MEDS: diltiaZEM 120 mg/24 Hours CD Cap PO SCH (08:51)
[2018-12-02] MEDS: Insulin Lispro Mix 75/25 100 units/ml (HumaLog) 10ml SC SCH ×2 (08:53→21:13)
[2018-12-02] MEDS: Ofloxacin Ophth 0.3% Soln OS SCH ×3 (08:56→22:13)
[2018-12-02] MEDS: REFRESH OU SCH ×4 (08:56→21:04)
[2018-12-02] MEDS: AZOPT 1% OD SCH ×2 (08:58→21:11)
[2018-12-02] MEDS: COMBIGAN OD SCH ×2 (08:59→21:19)
[2018-12-02] MEDS: oxyCODONE 10 mg ER Tab (oxyCONTIN) PO SCH (09:02)
--- NOTE | 2018-12-02 17:44 | CP.PCM.PN ---
Subjective - Date & Time of Evaluation Date of Evaluation: 12/02/18 Time of Evaluation: 17:42 - Subjective Subjective: Patient seen in the room NAD no resp distress there was some earlier wound drainage and ortho is aware she was eating now and not able to address this issue but it has been evaluated already ambulating 120' with RW continue current care seems to be starting to plateau Objective - Vital Signs/Intake and Output Vital Signs (last 24 hours): Temp Pulse Resp BP Pulse Ox 97.9 F 86 20 134/65 99 12/02/18 08:07 12/02/18 08:51 12/02/18 08:07 12/02/18 08:51 12/02/18 08:34 - Medications Medications: Current Medications Acetaminophen (Tylenol 325mg Tab) 650 mg PO Q6 PRN PRN Reason: Pain, Mild (1-3) Last Admin: 11/28/18 17:56 Dose: 650 mg Acetaminophen (Tylenol 325mg Tab) 650 mg PO Q6 PRN PRN Reason: Fever >100.4 F Allopurinol (Zyloprim) 100 mg PO DAILY [facility] Last Admin: 12/02/18 08:44 Dose: 100 mg Aspirin (Aspirin) 325 mg PO DAILY [facility] Last Admin: 12/02/18 08:42 Dose: 325 mg Calcium Carbonate (Oscal) 500 mg PO BIDWM [facility] Last Admin: 12/02/18 17:40 Dose: 500 mg Carvedilol (Coreg) 3.125 mg PO Q12 [facility] Last Admin: 12/02/18 08:44 Dose: 3.125 mg Cyanocobalamin (Vitamin B12 1000 Mcg Tab) 1,000 mcg PO DAILY [facility] Last Admin: 12/02/18 08:45 Dose: 1,000 mcg Diltiazem HCl (Cardizem Cd) 120 mg PO DAILY [facility] Last Admin: 12/02/18 08:51 Dose: 120 mg Famotidine (Pepcid) 20 mg PO HS [facility] Last Admin: 12/01/18 21:33 Dose: 20 mg Ferrous Sulfate (Feosol) 325 mg PO BID [facility] Last Admin: 12/02/18 17:40 Dose: 325 mg Home Med (Patient's Own Medication) 1 unit PO 2200 [facility] Last Admin: 12/01/18 21:31 Dose: 1 unit Home Med (Patient's Own Medication) 1 unit OD [facility] Last Admin: 12/02/18 08:58 Dose: 1 unit Home Med (Patient's Own Medication) 1 unit OD [facility] Last Admin: 12/02/18 08:59 Dose: 1 unit Home Med (Patient's Own Medication) 1 unit OU QID [facility] Last Admin: 12/02/18 17:40 Dose: 1 unit Insulin Human Lispro (Humalog) 0 units SC ACHS [facility]; Protocol Last Admin: 12/02/18 17:34 Dose: Not Given Insulin Lispro Protam/Lispro Human (Humalog Mix 75/25) 8 units SC DAILY [facility] Last Admin: 12/02/18 08:53 Dose: 8 units Insulin Lispro Protam/Lispro Human (Humalog Mix 75/25) 4 units SC [facility] Last Admin: 12/01/18 21:39 Dose: 4 units Lactulose (Enulose) 20 gm PO DAILY [facility] Last Admin: 12/02/18 08:43 Dose: 20 gm Latanoprost (Xalatan Opht) 1 drop OU [facility] Last Admin: 12/01/18 21:48 Dose: 1 drop Ofloxacin (Ocuflox Ophth 0.3%) 1 drop OS TID@0900,1300,2100 [facility] Last Admin: 12/02/18 13:59 Dose: 1 drop Ondansetron HCl (Zofran Tab) 4 mg PO Q6 PRN PRN Reason: Nausea/Vomiting Last Admin: 11/30/18 13:14 Dose: 4 mg Oxycodone/Acetaminophen (Percocet 5/325 Mg Tab) 1 tab PO Q4 PRN PRN Reason: Pain, severe (8-10) Stop: 12/03/18 16:01 Last Admin: 12/01/18 15:25 Dose: 1 tab Pantoprazole Sodium (Protonix Ec Tab) 40 mg PO DAILY [facility] Last Admin: 12/02/18 08:45 Dose: 40 mg Potassium Chloride (Klor-Con 10) 10 meq PO DAILY [facility] Last Admin: 11/25/18 09:35 Dose: Not Given Prednisolone Acetate (Pred Forte 1% Opht Susp) 1 drop OS DAILY [facility] Last Admin: 12/02/18 08:47 Dose: 1 drop Senna/Docusate Sodium (Senokot S 50 Mg-8.6 Mg) 1 tab PO [facility] Last Admin: 12/01/18 21:32 Dose: 1 tab Tramadol HCl (Ultram) 50 mg PO Q6 PRN PRN Reason: Pain, moderate (4-7) Last Admin: 12/02/18 14:18 Dose: 50 mg - Labs Labs: 11/30/18 11:45 11/30/18 05:40
[2018-12-02] MEDS: Docusate-Senna 50 mg-8.6 mg Tab PO SCH (21:06)
[2018-12-02] MEDS: VESICARE 5 MG PO SCH (21:08)
[2018-12-02] MEDS: Latanoprost 0.005% Opht SOUTION OU SCH (21:24)
[2018-12-03 07:20] LABS: CALCIUM 8.7 mg/dL (8.4-10.2)
[2018-12-03 07:26] LABS: HEMOGLOBIN 8.7 g/dL (12.0-16.0); MEAN CELL VOLUME 92.6 fl (81.0-99.0); MEAN CORPUSCULAR HEMOGLOBIN 30.7 pg (27.0-31.0); MEAN CORPUSCULAR HGB CONC 33.2 g/dL (33.0-37.0); RBC 2.84 Mil/uL (3.80-5.20); RED CELL DISTRIBUTION WIDTH 16.1 % (11.5-14.5); WHITE BLOOD COUNT 6.4 K/uL (4.8-10.8)
[2018-12-03] MEDS: Insulin Lispro (humaLOG) 100 Units/ml Inj SC SCH ×4 (07:42→21:25)
[2018-12-03] MEDS: AZOPT 1% OD SCH ×2 (08:43→21:48)
[2018-12-03] MEDS: Insulin Lispro Mix 75/25 100 units/ml (HumaLog) 10ml SC SCH ×2 (08:45→22:29)
[2018-12-03] MEDS: diltiaZEM 120 mg/24 Hours CD Cap PO SCH (08:47)
[2018-12-03] MEDS: REFRESH OU SCH ×4 (08:51→22:49)
[2018-12-03] MEDS: Pantoprazole 40 mg EC Tab PO SCH (08:53)
[2018-12-03] MEDS: PrednisoLONE 1% OPTH SUSP OS SCH (08:55)
[2018-12-03] MEDS: Ofloxacin Ophth 0.3% Soln OS SCH ×3 (09:01→21:26)
[2018-12-03] MEDS: COMBIGAN OD SCH ×2 (09:01→22:28)
[2018-12-03] MEDS: VESICARE 5 MG PO SCH (21:23)
[2018-12-03] MEDS: Docusate-Senna 50 mg-8.6 mg Tab PO SCH (21:24)
[2018-12-03] MEDS: Latanoprost 0.005% Opht SOUTION OU SCH (22:38)
[2018-12-04] MEDS: Insulin Lispro (humaLOG) 100 Units/ml Inj SC SCH ×4 (07:04→21:11)
[2018-12-04] MEDS: Ofloxacin Ophth 0.3% Soln OS SCH ×3 (08:15→20:54)
[2018-12-04] MEDS: Insulin Lispro Mix 75/25 100 units/ml (HumaLog) 10ml SC SCH ×2 (08:17→21:17)
[2018-12-04] MEDS: diltiaZEM 120 mg/24 Hours CD Cap PO SCH (08:21)
[2018-12-04] MEDS: Pantoprazole 40 mg EC Tab PO SCH (08:22)
[2018-12-04] MEDS: PrednisoLONE 1% OPTH SUSP OS SCH (08:22)
[2018-12-04] MEDS: AZOPT 1% OD SCH ×2 (08:24→22:07)
[2018-12-04] MEDS: REFRESH OU SCH ×4 (08:26→22:31)
[2018-12-04] MEDS: COMBIGAN OD SCH ×2 (08:29→21:14)
[2018-12-04] MEDS ORDERED: Oxycodone/Acetaminophen 5/325 mg Tab PO PRN (09:05)
--- NOTE | 2018-12-04 12:18 | CP.PCM.CON ---
History of Present Illness - History of Present Illness History of Present Illness: Podiatry consult note for Dr. Jordan, 78 yo female seen and evaluated for discoloration of the right fifth toe. Patient states that has been present for a very long time, and is painful while wearing tight shoes. Patient denies resting pain. Patient denies f/n/v/sob. Patient denies any other pedal complains. Denies seeing a news camera operator before. 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 - RENAL Hx Chronic Kidney Disease: No Other/Comment: chronic renal insufficiency - ENDOCRINE/METABOLIC Hx Diabetes Mellitus Type 2: Yes - HEMATOLOGICAL/ONCOLOGICAL Hx Anemia: Yes - INTEGUMENTARY Hx Dermatological Problems: No Other/Comment: skin tear left groin sacrum ecchymosis lt hip i/l left hip x2 - MUSCULOSKELETAL/RHEUMATOLOGICAL Hx Arthritis: Yes - GASTROINTESTINAL Hx Gastrointestinal Disorders: Yes Hx Gastroesophageal Reflux: Yes Other/Comment: 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) - GENITOURINARY/GYNECOLOGICAL Hx Genitourinary Disorders: Yes Hx Urinary Tract Infection: Yes Other/Comment: Uterine fibriods - PSYCHIATRIC Hx Substance Use: No - SURGICAL HISTORY Hx Eye Surgery: Yes Hx Mastectomy: Yes (rt breast mastectomy) - ANESTHESIA Hx Anesthesia: Yes Meds Allergies/Adverse Reactions: Allergies Allergy/AdvReac Type Severity Reaction Status Date / Time No Known Allergies Allergy Verified 12/02/17 19:45 - Medications Medications: Current Medications Acetaminophen (Tylenol 325mg Tab) 650 mg PO Q6 PRN PRN Reason: Pain, Mild (1-3) Last Admin: 11/28/18 17:56 Dose: 650 mg Acetaminophen (Tylenol 325mg Tab) 650 mg PO Q6 PRN PRN Reason: Fever >100.4 F Allopurinol (Zyloprim) 100 mg PO DAILY [facility] Last Admin: 12/04/18 08:24 Dose: 100 mg Aspirin (Aspirin) 325 mg PO DAILY [facility] Last Admin: 12/04/18 08:25 Dose: 325 mg Calcium Carbonate (Oscal) 500 mg PO BIDWM [facility] Last Admin: 12/04/18 08:15 Dose: 500 mg Carvedilol (Coreg) 3.125 mg PO Q12 [facility] Last Admin: 12/04/18 08:20 Dose: 3.125 mg Cyanocobalamin (Vitamin B12 1000 Mcg Tab) 1,000 mcg PO DAILY [facility] Last Admin: 12/04/18 08:23 Dose: 1,000 mcg Diltiazem HCl (Cardizem Cd) 120 mg PO DAILY [facility] Last Admin: 12/04/18 08:21 Dose: 120 mg Famotidine (Pepcid) 20 mg PO HS [facility] Last Admin: 12/03/18 21:23 Dose: 20 mg Ferrous Sulfate (Feosol) 325 mg PO BID [facility] Last Admin: 12/04/18 08:20 Dose: 325 mg Home Med (Patient's Own Medication) 1 unit PO 2200 [facility] Last Admin: 12/03/18 21:23 Dose: 1 unit Home Med (Patient's Own Medication) 1 unit OD [facility] Last Admin: 12/04/18 08:24 Dose: 1 unit Home Med (Patient's Own Medication) 1 unit OD [facility] Last Admin: 12/04/18 08:29 Dose: 1 unit Home Med (Patient's Own Medication) 1 unit OU QID [facility] Last Admin: 12/04/18 12:08 Dose: 1 unit Insulin Human Lispro (Humalog) 0 units SC [facility]; Protocol Last Admin: 12/04/18 12:07 Dose: Not Given Insulin Lispro Protam/Lispro Human (Humalog Mix 75/25) 8 units SC DAILY [facility] Last Admin: 12/04/18 08:17 Dose: 8 units Insulin Lispro Protam/Lispro Human (Humalog Mix 75/25) 4 units SC [facility] Last Admin: 12/03/18 22:29 Dose: 4 units Lactulose (Enulose) 20 gm PO DAILY [facility] Last Admin: 12/04/18 08:20 Dose: Not Given Latanoprost (Xalatan Opht) 1 drop OU [facility] Last Admin: 12/03/18 22:38 Dose: 1 drop Ofloxacin (Ocuflox Ophth 0.3%) 1 drop OS TID@0900,1300,2100 [facility] Last Admin: 12/04/18 12:07 Dose: 1 drop Ondansetron HCl (Zofran Tab) 4 mg PO Q6 PRN PRN Reason: Nausea/Vomiting Last Admin: 11/30/18 13:14 Dose: 4 mg Oxycodone/Acetaminophen (Percocet 5/325 Mg Tab) 1 tab PO Q4 PRN PRN Reason: Pain, severe (8-10) Stop: 12/07/18 09:06 Pantoprazole Sodium (Protonix Ec Tab) 40 mg PO DAILY [facility] Last Admin: 12/04/18 08:22 Dose: 40 mg Potassium Chloride (Klor-Con 10) 10 meq PO DAILY [facility] Last Admin: 11/25/18 09:35 Dose: Not Given Prednisolone Acetate (Pred Forte 1% Opht Susp) 1 drop OS DAILY [facility] Last Admin: 12/04/18 08:22 Dose: 1 drop Senna/Docusate Sodium (Senokot S 50 Mg-8.6 Mg) 1 tab PO HS [facility] Last Admin: 12/03/18 21:24 Dose: 1 tab Tramadol HCl (Ultram) 50 mg PO Q6 PRN PRN Reason: Pain, moderate (4-7) Last Admin: 12/03/18 09:38 Dose: 50 mg Physical Exam - Constitutional Appears: Well, Non-toxic, No Acute Distress - Head Exam Head Exam: ATRAUMATIC, NORMOCEPHALIC - Eye Exam Eye Exam: Normal appearance - ENT Exam ENT Exam: Mucous Membranes Moist - Respiratory Exam Respiratory Exam: NORMAL BREATHING PATTERN - Cardiovascular Exam Cardiovascular Exam: REGULAR RHYTHM, +S1, +S2 - Extremities Exam Additional comments: Right lower extremity exam: vascular: DP/PT 2/4, CFT <3 secs x 5, tg warm to warm, no edema, minimal erythema noted to the lateral aspect of the fifth digit derm: no open lesion, hyperkeratoses noted at the fifht digit, no clinical signs of infection neuro: protective sensation intact via ipswich 10/20 ortho: pain with lateral squeeze of the forefoot, pain on palpation to the lateral aspect of the fifth digit Results - Vital Signs Recent Vital Signs: Last Vital Signs Temp 99.1 F 12/04/18 08:33 Pulse 82 12/04/18 08:33 Resp 18 12/04/18 08:33 BP 135/63 05/19/19 08:33 Pulse Ox 100 12/04/18 08:33 - Labs Result Diagrams: 12/03/18 06:50 12/03/18 06:50 Labs: Laboratory Results - last 24 hr 12/03/18 12/03/18 12/04/18 16:26 20:49 06:13 POC Glucose (mg/dL) 137 H 141 H 105 12/04/18 11:11 POC Glucose (mg/dL) 137 H Assessment & Plan - Assessment and Plan (Free Text) Assessment: 78 yo female seen and evaluated for right digit fifth toe discoloration on the lateral aspect Plan: patient seen and evaluated chart labs and vitals reivewed case discussed with Dr. Jordan ammonium lactate 12% ordered; to be applied BID by the nurse podiatry to sign off at this time no acute intervention as the discoloration has been present for a long time, and strong pedal pulses are noted thank you for the consult
[2018-12-04] MEDS: VESICARE 5 MG PO SCH (21:03)
[2018-12-04] MEDS: Docusate-Senna 50 mg-8.6 mg Tab PO SCH (21:03)
[2018-12-04] MEDS: Latanoprost 0.005% Opht SOUTION OU SCH (22:19)
--- NOTE | 2018-12-05 01:59 | CP.PCM.PN ---
Subjective - Date & Time of Evaluation Date of Evaluation: 11/28/18 Objective - Vital Signs/Intake and Output Vital Signs (last 24 hours): Temp Pulse Resp BP Pulse Ox 98.2 F 85 20 137/63 99 12/05/18 00:39 12/04/18 21:00 12/04/18 21:00 12/04/18 21:00 12/04/18 21:00 - Medications Medications: Current Medications Acetaminophen (Tylenol 325mg Tab) 650 mg PO Q6 PRN PRN Reason: Pain, Mild (1-3) Last Admin: 12/05/18 00:39 Dose: 650 mg Acetaminophen (Tylenol 325mg Tab) 650 mg PO Q6 PRN PRN Reason: Fever >100.4 F Allopurinol (Zyloprim) 100 mg PO DAILY [facility] Last Admin: 12/04/18 08:24 Dose: 100 mg Aspirin (Aspirin) 325 mg PO DAILY [facility] Last Admin: 12/04/18 08:25 Dose: 325 mg Calcium Carbonate (Oscal) 500 mg PO BIDWM [facility] Last Admin: 12/04/18 16:49 Dose: 500 mg Carvedilol (Coreg) 3.125 mg PO Q12 [facility] Last Admin: 12/04/18 20:53 Dose: 3.125 mg Cyanocobalamin (Vitamin B12 1000 Mcg Tab) 1,000 mcg PO DAILY [facility] Last Admin: 12/04/18 08:23 Dose: 1,000 mcg Diltiazem HCl (Cardizem Cd) 120 mg PO DAILY [facility] Last Admin: 12/04/18 08:21 Dose: 120 mg Famotidine (Pepcid) 20 mg PO HS [facility] Last Admin: 12/04/18 21:03 Dose: 20 mg Ferrous Sulfate (Feosol) 325 mg PO BID [facility] Last Admin: 12/04/18 16:49 Dose: 325 mg Home Med (Patient's Own Medication) 1 unit PO 2200 [facility] Last Admin: 12/04/18 21:03 Dose: 1 unit Home Med (Patient's Own Medication) 1 unit OD [facility] Last Admin: 12/04/18 22:07 Dose: 1 unit Home Med (Patient's Own Medication) 1 unit OD [facility] Last Admin: 12/04/18 21:14 Dose: 1 unit Home Med (Patient's Own Medication) 1 unit OU QID [facility] Last Admin: 12/04/18 22:31 Dose: 1 unit Insulin Human Lispro (Humalog) 0 units SC [facility]; Protocol Last Admin: 12/04/18 21:11 Dose: Not Given Insulin Lispro Protam/Lispro Human (Humalog Mix 75/25) 8 units SC DAILY [facility] Last Admin: 12/04/18 08:17 Dose: 8 units Insulin Lispro Protam/Lispro Human (Humalog Mix 75/25) 4 units SC HS [facility] Last Admin: 12/04/18 21:17 Dose: 4 units Lactic Acid (Lac-Hydrin 12% Lotion (225 G)) 1 applic TOP TID [facility] Last Admin: 12/04/18 16:50 Dose: 1 applic Lactulose (Enulose) 20 gm PO DAILY [facility] Last Admin: 12/04/18 08:20 Dose: Not Given Latanoprost (Xalatan Opht) 1 drop OU HS [facility] Last Admin: 12/04/18 22:19 Dose: 1 drop Ofloxacin (Ocuflox Ophth 0.3%) 1 drop OS TID@0900,1300,2100 [facility] Last Admin: 12/04/18 20:54 Dose: 1 drop Ondansetron HCl (Zofran Tab) 4 mg PO Q6 PRN PRN Reason: Nausea/Vomiting Last Admin: 11/30/18 13:14 Dose: 4 mg Oxycodone/Acetaminophen (Percocet 5/325 Mg Tab) 1 tab PO Q4 PRN PRN Reason: Pain, severe (8-10) Stop: 12/07/18 09:06 Pantoprazole Sodium (Protonix Ec Tab) 40 mg PO DAILY [facility] Last Admin: 12/04/18 08:22 Dose: 40 mg Potassium Chloride (Klor-Con 10) 10 meq PO DAILY [facility] Last Admin: 11/25/18 09:35 Dose: Not Given Prednisolone Acetate (Pred Forte 1% Opht Susp) 1 drop OS DAILY [facility] Last Admin: 12/04/18 08:22 Dose: 1 drop Senna/Docusate Sodium (Senokot S 50 Mg-8.6 Mg) 1 tab PO HS [facility] Last Admin: 12/04/18 21:03 Dose: 1 tab Tramadol HCl (Ultram) 50 mg PO Q6 PRN PRN Reason: Pain, moderate (4-7) Last Admin: 12/03/18 09:38 Dose: 50 mg - Labs Labs: 12/03/18 06:50 12/03/18 06:50 Assessment and Plan (1) Acute blood loss anemia Status: Acute (2) Closed comminuted intertrochanteric fracture of left femur Status: Acute (3) Diabetes mellitus Status: Chronic (4) Hip fracture Status: Acute (5) Hypertension Status: Acute
--- NOTE | 2018-12-05 01:59 | CP.PCM.PN ---
Subjective - Date & Time of Evaluation Date of Evaluation: 11/27/18 Objective - Vital Signs/Intake and Output Vital Signs (last 24 hours): Temp Pulse Resp BP Pulse Ox 98.2 F 85 20 137/63 99 12/05/18 00:39 12/04/18 21:00 12/04/18 21:00 12/04/18 21:00 12/04/18 21:00 - Medications Medications: Current Medications Acetaminophen (Tylenol 325mg Tab) 650 mg PO Q6 PRN PRN Reason: Pain, Mild (1-3) Last Admin: 12/05/18 00:39 Dose: 650 mg Acetaminophen (Tylenol 325mg Tab) 650 mg PO Q6 PRN PRN Reason: Fever >100.4 F Allopurinol (Zyloprim) 100 mg PO DAILY [facility] Last Admin: 12/04/18 08:24 Dose: 100 mg Aspirin (Aspirin) 325 mg PO DAILY [facility] Last Admin: 12/04/18 08:25 Dose: 325 mg Calcium Carbonate (Oscal) 500 mg PO BIDWM [facility] Last Admin: 12/04/18 16:49 Dose: 500 mg Carvedilol (Coreg) 3.125 mg PO Q12 [facility] Last Admin: 12/04/18 20:53 Dose: 3.125 mg Cyanocobalamin (Vitamin B12 1000 Mcg Tab) 1,000 mcg PO DAILY [facility] Last Admin: 12/04/18 08:23 Dose: 1,000 mcg Diltiazem HCl (Cardizem Cd) 120 mg PO DAILY [facility] Last Admin: 12/04/18 08:21 Dose: 120 mg Famotidine (Pepcid) 20 mg PO HS [facility] Last Admin: 12/04/18 21:03 Dose: 20 mg Ferrous Sulfate (Feosol) 325 mg PO BID [facility] Last Admin: 12/04/18 16:49 Dose: 325 mg Home Med (Patient's Own Medication) 1 unit PO 2200 [facility] Last Admin: 12/04/18 21:03 Dose: 1 unit Home Med (Patient's Own Medication) 1 unit OD [facility] Last Admin: 12/04/18 22:07 Dose: 1 unit Home Med (Patient's Own Medication) 1 unit OD [facility] Last Admin: 12/04/18 21:14 Dose: 1 unit Home Med (Patient's Own Medication) 1 unit OU QID [facility] Last Admin: 12/04/18 22:31 Dose: 1 unit Insulin Human Lispro (Humalog) 0 units SC ACHS [facility]; Protocol Last Admin: 12/04/18 21:11 Dose: Not Given Insulin Lispro Protam/Lispro Human (Humalog Mix 75/25) 8 units SC DAILY [facility] Last Admin: 12/04/18 08:17 Dose: 8 units Insulin Lispro Protam/Lispro Human (Humalog Mix 75/25) 4 units SC HS [facility] Last Admin: 12/04/18 21:17 Dose: 4 units Lactic Acid (Lac-Hydrin 12% Lotion (225 G)) 1 applic TOP TID [facility] Last Admin: 12/04/18 16:50 Dose: 1 applic Lactulose (Enulose) 20 gm PO DAILY [facility] Last Admin: 12/04/18 08:20 Dose: Not Given Latanoprost (Xalatan Opht) 1 drop OU HS [facility] Last Admin: 12/04/18 22:19 Dose: 1 drop Ofloxacin (Ocuflox Ophth 0.3%) 1 drop OS TID@0900,1300,2100 [facility] Last Admin: 12/04/18 20:54 Dose: 1 drop Ondansetron HCl (Zofran Tab) 4 mg PO Q6 PRN PRN Reason: Nausea/Vomiting Last Admin: 11/30/18 13:14 Dose: 4 mg Oxycodone/Acetaminophen (Percocet 5/325 Mg Tab) 1 tab PO Q4 PRN PRN Reason: Pain, severe (8-10) Stop: 12/07/18 09:06 Pantoprazole Sodium (Protonix Ec Tab) 40 mg PO DAILY [facility] Last Admin: 12/04/18 08:22 Dose: 40 mg Potassium Chloride (Klor-Con 10) 10 meq PO DAILY [facility] Last Admin: 11/25/18 09:35 Dose: Not Given Prednisolone Acetate (Pred Forte 1% Opht Susp) 1 drop OS DAILY [facility] Last Admin: 12/04/18 08:22 Dose: 1 drop Senna/Docusate Sodium (Senokot S 50 Mg-8.6 Mg) 1 tab PO HS [facility] Last Admin: 12/04/18 21:03 Dose: 1 tab Tramadol HCl (Ultram) 50 mg PO Q6 PRN PRN Reason: Pain, moderate (4-7) Last Admin: 12/03/18 09:38 Dose: 50 mg - Labs Labs: 12/03/18 06:50 12/03/18 06:50 Assessment and Plan (1) Acute blood loss anemia Status: Acute (2) Closed comminuted intertrochanteric fracture of left femur Status: Acute (3) Diabetes mellitus Status: Chronic (4) Hip fracture Status: Acute (5) Hypertension Status: Acute
--- NOTE | 2018-12-05 02:00 | CP.PCM.PN ---
Subjective - Date & Time of Evaluation Date of Evaluation: 11/29/18 Objective - Vital Signs/Intake and Output Vital Signs (last 24 hours): Temp Pulse Resp BP Pulse Ox 98.2 F 85 20 137/63 99 12/05/18 00:39 12/04/18 21:00 12/04/18 21:00 12/04/18 21:00 12/04/18 21:00 - Medications Medications: Current Medications Acetaminophen (Tylenol 325mg Tab) 650 mg PO Q6 PRN PRN Reason: Pain, Mild (1-3) Last Admin: 12/05/18 00:39 Dose: 650 mg Acetaminophen (Tylenol 325mg Tab) 650 mg PO Q6 PRN PRN Reason: Fever >100.4 F Allopurinol (Zyloprim) 100 mg PO DAILY [facility] Last Admin: 12/04/18 08:24 Dose: 100 mg Aspirin (Aspirin) 325 mg PO DAILY [facility] Last Admin: 12/04/18 08:25 Dose: 325 mg Calcium Carbonate (Oscal) 500 mg PO BIDWM [facility] Last Admin: 12/04/18 16:49 Dose: 500 mg Carvedilol (Coreg) 3.125 mg PO Q12 [facility] Last Admin: 12/04/18 20:53 Dose: 3.125 mg Cyanocobalamin (Vitamin B12 1000 Mcg Tab) 1,000 mcg PO DAILY [facility] Last Admin: 12/04/18 08:23 Dose: 1,000 mcg Diltiazem HCl (Cardizem Cd) 120 mg PO DAILY [facility] Last Admin: 12/04/18 08:21 Dose: 120 mg Famotidine (Pepcid) 20 mg PO HS [facility] Last Admin: 12/04/18 21:03 Dose: 20 mg Ferrous Sulfate (Feosol) 325 mg PO BID [facility] Last Admin: 12/04/18 16:49 Dose: 325 mg Home Med (Patient's Own Medication) 1 unit PO 2200 [facility] Last Admin: 12/04/18 21:03 Dose: 1 unit Home Med (Patient's Own Medication) 1 unit OD [facility] Last Admin: 12/04/18 22:07 Dose: 1 unit Home Med (Patient's Own Medication) 1 unit OD [facility] Last Admin: 12/04/18 21:14 Dose: 1 unit Home Med (Patient's Own Medication) 1 unit OU QID [facility] Last Admin: 12/04/18 22:31 Dose: 1 unit Insulin Human Lispro (Humalog) 0 units SC [facility]; Protocol Last Admin: 12/04/18 21:11 Dose: Not Given Insulin Lispro Protam/Lispro Human (Humalog Mix 75/25) 8 units SC DAILY [facility] Last Admin: 12/04/18 08:17 Dose: 8 units Insulin Lispro Protam/Lispro Human (Humalog Mix 75/25) 4 units SC HS [facility] Last Admin: 12/04/18 21:17 Dose: 4 units Lactic Acid (Lac-Hydrin 12% Lotion (225 G)) 1 applic TOP TID [facility] Last Admin: 12/04/18 16:50 Dose: 1 applic Lactulose (Enulose) 20 gm PO DAILY [facility] Last Admin: 12/04/18 08:20 Dose: Not Given Latanoprost (Xalatan Opht) 1 drop OU HS [facility] Last Admin: 12/04/18 22:19 Dose: 1 drop Ofloxacin (Ocuflox Ophth 0.3%) 1 drop OS TID@0900,1300,2100 [facility] Last Admin: 12/04/18 20:54 Dose: 1 drop Ondansetron HCl (Zofran Tab) 4 mg PO Q6 PRN PRN Reason: Nausea/Vomiting Last Admin: 11/30/18 13:14 Dose: 4 mg Oxycodone/Acetaminophen (Percocet 5/325 Mg Tab) 1 tab PO Q4 PRN PRN Reason: Pain, severe (8-10) Stop: 12/07/18 09:06 Pantoprazole Sodium (Protonix Ec Tab) 40 mg PO DAILY [facility] Last Admin: 12/04/18 08:22 Dose: 40 mg Potassium Chloride (Klor-Con 10) 10 meq PO DAILY [facility] Last Admin: 11/25/18 09:35 Dose: Not Given Prednisolone Acetate (Pred Forte 1% Opht Susp) 1 drop OS DAILY [facility] Last Admin: 12/04/18 08:22 Dose: 1 drop Senna/Docusate Sodium (Senokot S 50 Mg-8.6 Mg) 1 tab PO HS [facility] Last Admin: 12/04/18 21:03 Dose: 1 tab Tramadol HCl (Ultram) 50 mg PO Q6 PRN PRN Reason: Pain, moderate (4-7) Last Admin: 12/03/18 09:38 Dose: 50 mg - Labs Labs: 12/03/18 06:50 12/03/18 06:50 Assessment and Plan (1) Acute blood loss anemia Status: Acute (2) Closed comminuted intertrochanteric fracture of left femur Status: Acute (3) Diabetes mellitus Status: Chronic (4) Hip fracture Status: Acute (5) Hypertension Status: Acute
--- NOTE | 2018-12-05 02:00 | CP.PCM.PN ---
Subjective - Date & Time of Evaluation Date of Evaluation: 11/30/18 Time of Evaluation: 22:35 Objective - Vital Signs/Intake and Output Vital Signs (last 24 hours): Temp Pulse Resp BP Pulse Ox 98.2 F 85 20 137/63 99 12/05/18 00:39 12/04/18 21:00 12/04/18 21:00 12/04/18 21:00 12/04/18 21:00 - Medications Medications: Current Medications Acetaminophen (Tylenol 325mg Tab) 650 mg PO Q6 PRN PRN Reason: Pain, Mild (1-3) Last Admin: 12/05/18 00:39 Dose: 650 mg Acetaminophen (Tylenol 325mg Tab) 650 mg PO Q6 PRN PRN Reason: Fever >100.4 F Allopurinol (Zyloprim) 100 mg PO DAILY [facility] Last Admin: 12/04/18 08:24 Dose: 100 mg Aspirin (Aspirin) 325 mg PO DAILY [facility] Last Admin: 12/04/18 08:25 Dose: 325 mg Calcium Carbonate (Oscal) 500 mg PO BIDWM [facility] Last Admin: 12/04/18 16:49 Dose: 500 mg Carvedilol (Coreg) 3.125 mg PO Q12 [facility] Last Admin: 12/04/18 20:53 Dose: 3.125 mg Cyanocobalamin (Vitamin B12 1000 Mcg Tab) 1,000 mcg PO DAILY [facility] Last Admin: 12/04/18 08:23 Dose: 1,000 mcg Diltiazem HCl (Cardizem Cd) 120 mg PO DAILY [facility] Last Admin: 12/04/18 08:21 Dose: 120 mg Famotidine (Pepcid) 20 mg PO HS [facility] Last Admin: 12/04/18 21:03 Dose: 20 mg Ferrous Sulfate (Feosol) 325 mg PO BID [facility] Last Admin: 12/04/18 16:49 Dose: 325 mg Home Med (Patient's Own Medication) 1 unit PO 2200 [facility] Last Admin: 12/04/18 21:03 Dose: 1 unit Home Med (Patient's Own Medication) 1 unit OD [facility] Last Admin: 12/04/18 22:07 Dose: 1 unit Home Med (Patient's Own Medication) 1 unit OD [facility] Last Admin: 12/04/18 21:14 Dose: 1 unit Home Med (Patient's Own Medication) 1 unit OU QID [facility] Last Admin: 12/04/18 22:31 Dose: 1 unit Insulin Human Lispro (Humalog) [address] [facility]; Protocol Last Admin: 12/04/18 21:11 Dose: Not Given Insulin Lispro Protam/Lispro Human (Humalog Mix 75/25) 8 units SC DAILY [facility] Last Admin: 12/04/18 08:17 Dose: 8 units Insulin Lispro Protam/Lispro Human (Humalog Mix 75/25) 4 units SC [facility] Last Admin: 12/04/18 21:17 Dose: 4 units Lactic Acid (Lac-Hydrin 12% Lotion (225 G)) 1 applic TOP TID [facility] Last Admin: 12/04/18 16:50 Dose: 1 applic Lactulose (Enulose) 20 gm PO DAILY [facility] Last Admin: 12/04/18 08:20 Dose: Not Given Latanoprost (Xalatan Opht) 1 drop OU [facility] Last Admin: 12/04/18 22:19 Dose: 1 drop Ofloxacin (Ocuflox Ophth 0.3%) 1 drop OS TID@0900,1300,2100 [facility] Last Admin: 12/04/18 20:54 Dose: 1 drop Ondansetron HCl (Zofran Tab) 4 mg PO Q6 PRN PRN Reason: Nausea/Vomiting Last Admin: 11/30/18 13:14 Dose: 4 mg Oxycodone/Acetaminophen (Percocet 5/325 Mg Tab) 1 tab PO Q4 PRN PRN Reason: Pain, severe (8-10) Stop: 12/07/18 09:06 Pantoprazole Sodium (Protonix Ec Tab) 40 mg PO DAILY [facility] Last Admin: 12/04/18 08:22 Dose: 40 mg Potassium Chloride (Klor-Con 10) 10 meq PO DAILY [facility] Last Admin: 11/25/18 09:35 Dose: Not Given Prednisolone Acetate (Pred Forte 1% Opht Susp) 1 drop OS DAILY [facility] Last Admin: 12/04/18 08:22 Dose: 1 drop Senna/Docusate Sodium (Senokot S 50 Mg-8.6 Mg) 1 tab PO [facility] Last Admin: 12/04/18 21:03 Dose: 1 tab Tramadol HCl (Ultram) 50 mg PO Q6 PRN PRN Reason: Pain, moderate (4-7) Last Admin: 12/03/18 09:38 Dose: 50 mg - Labs Labs: 12/03/18 06:50 12/03/18 06:50 Assessment and Plan (1) Acute blood loss anemia Status: Acute (2) Closed comminuted intertrochanteric fracture of left femur Status: Acute (3) Diabetes mellitus Status: Chronic (4) Hip fracture Status: Acute (5) Hypertension Status: Acute
--- NOTE | 2018-12-05 02:02 | CP.PCM.PN ---
Subjective - Date & Time of Evaluation Date of Evaluation: 12/01/18 Objective - Vital Signs/Intake and Output Vital Signs (last 24 hours): Temp Pulse Resp BP Pulse Ox 98.2 F 85 20 137/63 99 12/05/18 00:39 12/04/18 21:00 12/04/18 21:00 12/04/18 21:00 12/04/18 21:00 - Medications Medications: Current Medications Acetaminophen (Tylenol 325mg Tab) 650 mg PO Q6 PRN PRN Reason: Pain, Mild (1-3) Last Admin: 12/05/18 00:39 Dose: 650 mg Acetaminophen (Tylenol 325mg Tab) 650 mg PO Q6 PRN PRN Reason: Fever >100.4 F Allopurinol (Zyloprim) 100 mg PO DAILY [facility] Last Admin: 12/04/18 08:24 Dose: 100 mg Aspirin (Aspirin) 325 mg PO DAILY [facility] Last Admin: 12/04/18 08:25 Dose: 325 mg Calcium Carbonate (Oscal) 500 mg PO BIDWM [facility] Last Admin: 12/04/18 16:49 Dose: 500 mg Carvedilol (Coreg) 3.125 mg PO Q12 [facility] Last Admin: 12/04/18 20:53 Dose: 3.125 mg Cyanocobalamin (Vitamin B12 1000 Mcg Tab) 1,000 mcg PO DAILY [facility] Last Admin: 12/04/18 08:23 Dose: 1,000 mcg Diltiazem HCl (Cardizem Cd) 120 mg PO DAILY [facility] Last Admin: 12/04/18 08:21 Dose: 120 mg Famotidine (Pepcid) 20 mg PO HS [facility] Last Admin: 12/04/18 21:03 Dose: 20 mg Ferrous Sulfate (Feosol) 325 mg PO BID [facility] Last Admin: 12/04/18 16:49 Dose: 325 mg Home Med (Patient's Own Medication) 1 unit PO 2200 [facility] Last Admin: 12/04/18 21:03 Dose: 1 unit Home Med (Patient's Own Medication) 1 unit OD [facility] Last Admin: 12/04/18 22:07 Dose: 1 unit Home Med (Patient's Own Medication) 1 unit OD [facility] Last Admin: 12/04/18 21:14 Dose: 1 unit Home Med (Patient's Own Medication) 1 unit OU QID [facility] Last Admin: 12/04/18 22:31 Dose: 1 unit Insulin Human Lispro (Humalog) 0 units SC ACHS [facility]; Protocol Last Admin: 12/04/18 21:11 Dose: Not Given Insulin Lispro Protam/Lispro Human (Humalog Mix 75/25) 8 units SC DAILY [facility] Last Admin: 12/04/18 08:17 Dose: 8 units Insulin Lispro Protam/Lispro Human (Humalog Mix 75/25) 4 units SC HS [facility] Last Admin: 12/04/18 21:17 Dose: 4 units Lactic Acid (Lac-Hydrin 12% Lotion (225 G)) 1 applic TOP TID [facility] Last Admin: 12/04/18 16:50 Dose: 1 applic Lactulose (Enulose) 20 gm PO DAILY [facility] Last Admin: 12/04/18 08:20 Dose: Not Given Latanoprost (Xalatan Opht) 1 drop OU HS [facility] Last Admin: 12/04/18 22:19 Dose: 1 drop Ofloxacin (Ocuflox Ophth 0.3%) 1 drop OS TID@0900,1300,2100 [facility] Last Admin: 12/04/18 20:54 Dose: 1 drop Ondansetron HCl (Zofran Tab) 4 mg PO Q6 PRN PRN Reason: Nausea/Vomiting Last Admin: 11/30/18 13:14 Dose: 4 mg Oxycodone/Acetaminophen (Percocet 5/325 Mg Tab) 1 tab PO Q4 PRN PRN Reason: Pain, severe (8-10) Stop: 12/07/18 09:06 Pantoprazole Sodium (Protonix Ec Tab) 40 mg PO DAILY [facility] Last Admin: 12/04/18 08:22 Dose: 40 mg Potassium Chloride (Klor-Con 10) 10 meq PO DAILY [facility] Last Admin: 11/25/18 09:35 Dose: Not Given Prednisolone Acetate (Pred Forte 1% Opht Susp) 1 drop OS DAILY [facility] Last Admin: 12/04/18 08:22 Dose: 1 drop Senna/Docusate Sodium (Senokot S 50 Mg-8.6 Mg) 1 tab PO HS [facility] Last Admin: 12/04/18 21:03 Dose: 1 tab Tramadol HCl (Ultram) 50 mg PO Q6 PRN PRN Reason: Pain, moderate (4-7) Last Admin: 12/03/18 09:38 Dose: 50 mg - Labs Labs: 12/03/18 06:50 12/03/18 06:50 Assessment and Plan (1) Acute blood loss anemia Status: Acute (2) Closed comminuted intertrochanteric fracture of left femur Status: Acute (3) Diabetes mellitus Status: Chronic (4) Hip fracture Status: Acute (5) Hypertension Status: Acute
--- NOTE | 2018-12-05 02:05 | CP.PCM.PN ---
Subjective - Date & Time of Evaluation Date of Evaluation: 12/02/18 Time of Evaluation: 23:10 Objective - Vital Signs/Intake and Output Vital Signs (last 24 hours): Temp Pulse Resp BP Pulse Ox 98.2 F 85 20 137/63 99 12/05/18 00:39 12/04/18 21:00 12/04/18 21:00 12/04/18 21:00 12/04/18 21:00 - Medications Medications: Current Medications Acetaminophen (Tylenol 325mg Tab) 650 mg PO Q6 PRN PRN Reason: Pain, Mild (1-3) Last Admin: 12/05/18 00:39 Dose: 650 mg Acetaminophen (Tylenol 325mg Tab) 650 mg PO Q6 PRN PRN Reason: Fever >100.4 F Allopurinol (Zyloprim) 100 mg PO DAILY [facility] Last Admin: 12/04/18 08:24 Dose: 100 mg Aspirin (Aspirin) 325 mg PO DAILY [facility] Last Admin: 12/04/18 08:25 Dose: 325 mg Calcium Carbonate (Oscal) 500 mg PO BIDWM [facility] Last Admin: 12/04/18 16:49 Dose: 500 mg Carvedilol (Coreg) 3.125 mg PO Q12 [facility] Last Admin: 12/04/18 20:53 Dose: 3.125 mg Cyanocobalamin (Vitamin B12 1000 Mcg Tab) 1,000 mcg PO DAILY [facility] Last Admin: 12/04/18 08:23 Dose: 1,000 mcg Diltiazem HCl (Cardizem Cd) 120 mg PO DAILY [facility] Last Admin: 12/04/18 08:21 Dose: 120 mg Famotidine (Pepcid) 20 mg PO HS [facility] Last Admin: 12/04/18 21:03 Dose: 20 mg Ferrous Sulfate (Feosol) 325 mg PO BID [facility] Last Admin: 12/04/18 16:49 Dose: 325 mg Home Med (Patient's Own Medication) 1 unit PO 2200 [facility] Last Admin: 12/04/18 21:03 Dose: 1 unit Home Med (Patient's Own Medication) 1 unit OD [facility] Last Admin: 12/04/18 22:07 Dose: 1 unit Home Med (Patient's Own Medication) 1 unit OD [facility] Last Admin: 12/04/18 21:14 Dose: 1 unit Home Med (Patient's Own Medication) 1 unit OU QID [facility] Last Admin: 12/04/18 22:31 Dose: 1 unit Insulin Human Lispro (Humalog) 0 units SC [facility]; Protocol Last Admin: 12/04/18 21:11 Dose: Not Given Insulin Lispro Protam/Lispro Human (Humalog Mix 75/25) 8 units SC DAILY [facility] Last Admin: 12/04/18 08:17 Dose: 8 units Insulin Lispro Protam/Lispro Human (Humalog Mix 75/25) [address] [facility] Last Admin: 12/04/18 21:17 Dose: 4 units Lactic Acid (Lac-Hydrin 12% Lotion (225 G)) 1 applic TOP TID [facility] Last Admin: 12/04/18 16:50 Dose: 1 applic Lactulose (Enulose) 20 gm PO DAILY [facility] Last Admin: 12/04/18 08:20 Dose: Not Given Latanoprost (Xalatan Opht) [address] [facility] Last Admin: 12/04/18 22:19 Dose: 1 drop Ofloxacin (Ocuflox Ophth 0.3%) 1 drop OS TID@0900,1300,2100 [facility] Last Admin: 12/04/18 20:54 Dose: 1 drop Ondansetron HCl (Zofran Tab) 4 mg PO Q6 PRN PRN Reason: Nausea/Vomiting Last Admin: 11/30/18 13:14 Dose: 4 mg Oxycodone/Acetaminophen (Percocet 5/325 Mg Tab) 1 tab PO Q4 PRN PRN Reason: Pain, severe (8-10) Stop: 12/07/18 09:06 Pantoprazole Sodium (Protonix Ec Tab) 40 mg PO DAILY [facility] Last Admin: 12/04/18 08:22 Dose: 40 mg Potassium Chloride (Klor-Con 10) 10 meq PO DAILY [facility] Last Admin: 11/25/18 09:35 Dose: Not Given Prednisolone Acetate (Pred Forte 1% Opht Susp) 1 drop OS DAILY [facility] Last Admin: 12/04/18 08:22 Dose: 1 drop Senna/Docusate Sodium (Senokot S 50 Mg-8.6 Mg) [address] [facility] Last Admin: 12/04/18 21:03 Dose: 1 tab Tramadol HCl (Ultram) 50 mg PO Q6 PRN PRN Reason: Pain, moderate (4-7) Last Admin: 12/03/18 09:38 Dose: 50 mg - Labs Labs: 12/03/18 06:50 12/03/18 06:50 Assessment and Plan (1) Acute blood loss anemia Status: Acute (2) Closed comminuted intertrochanteric fracture of left femur Status: Acute (3) Diabetes mellitus Status: Chronic (4) Hip fracture Status: Acute (5) Hypertension Status: Acute
--- NOTE | 2018-12-05 02:06 | CP.PCM.PN ---
Subjective - Date & Time of Evaluation Date of Evaluation: 12/03/18 Time of Evaluation: 22:25 Objective - Vital Signs/Intake and Output Vital Signs (last 24 hours): Temp Pulse Resp BP Pulse Ox 98.2 F 85 20 137/63 99 12/05/18 00:39 12/04/18 21:00 12/04/18 21:00 12/04/18 21:00 12/04/18 21:00 - Medications Medications: Current Medications Acetaminophen (Tylenol 325mg Tab) 650 mg PO Q6 PRN PRN Reason: Pain, Mild (1-3) Last Admin: 12/05/18 00:39 Dose: 650 mg Acetaminophen (Tylenol 325mg Tab) 650 mg PO Q6 PRN PRN Reason: Fever >100.4 F Allopurinol (Zyloprim) 100 mg PO DAILY [facility] Last Admin: 12/04/18 08:24 Dose: 100 mg Aspirin (Aspirin) 325 mg PO DAILY [facility] Last Admin: 12/04/18 08:25 Dose: 325 mg Calcium Carbonate (Oscal) 500 mg PO BIDWM [facility] Last Admin: 12/04/18 16:49 Dose: 500 mg Carvedilol (Coreg) 3.125 mg PO Q12 [facility] Last Admin: 12/04/18 20:53 Dose: 3.125 mg Cyanocobalamin (Vitamin B12 1000 Mcg Tab) 1,000 mcg PO DAILY [facility] Last Admin: 12/04/18 08:23 Dose: 1,000 mcg Diltiazem HCl (Cardizem Cd) 120 mg PO DAILY [facility] Last Admin: 12/04/18 08:21 Dose: 120 mg Famotidine (Pepcid) 20 mg PO HS [facility] Last Admin: 12/04/18 21:03 Dose: 20 mg Ferrous Sulfate (Feosol) 325 mg PO BID [facility] Last Admin: 12/04/18 16:49 Dose: 325 mg Home Med (Patient's Own Medication) 1 unit PO 2200 [facility] Last Admin: 12/04/18 21:03 Dose: 1 unit Home Med (Patient's Own Medication) 1 unit OD [facility] Last Admin: 12/04/18 22:07 Dose: 1 unit Home Med (Patient's Own Medication) 1 unit OD [facility] Last Admin: 12/04/18 21:14 Dose: 1 unit Home Med (Patient's Own Medication) 1 unit OU QID [facility] Last Admin: 12/04/18 22:31 Dose: 1 unit Insulin Human Lispro (Humalog) 0 units SC [facility]; Protocol Last Admin: 12/04/18 21:11 Dose: Not Given Insulin Lispro Protam/Lispro Human (Humalog Mix 75/25) 8 units SC DAILY [facility] Last Admin: 12/04/18 08:17 Dose: 8 units Insulin Lispro Protam/Lispro Human (Humalog Mix 75/25) 4 units SC [facility] Last Admin: 12/04/18 21:17 Dose: 4 units Lactic Acid (Lac-Hydrin 12% Lotion (225 G)) 1 applic TOP TID [facility] Last Admin: 12/04/18 16:50 Dose: 1 applic Lactulose (Enulose) 20 gm PO DAILY [facility] Last Admin: 12/04/18 08:20 Dose: Not Given Latanoprost (Xalatan Opht) 1 drop OU [facility] Last Admin: 12/04/18 22:19 Dose: 1 drop Ofloxacin (Ocuflox Ophth 0.3%) 1 drop OS TID@0900,1300,2100 [facility] Last Admin: 12/04/18 20:54 Dose: 1 drop Ondansetron HCl (Zofran Tab) 4 mg PO Q6 PRN PRN Reason: Nausea/Vomiting Last Admin: 11/30/18 13:14 Dose: 4 mg Oxycodone/Acetaminophen (Percocet 5/325 Mg Tab) 1 tab PO Q4 PRN PRN Reason: Pain, severe (8-10) Stop: 12/07/18 09:06 Pantoprazole Sodium (Protonix Ec Tab) 40 mg PO DAILY [facility] Last Admin: 12/04/18 08:22 Dose: 40 mg Potassium Chloride (Klor-Con 10) 10 meq PO DAILY [facility] Last Admin: 11/25/18 09:35 Dose: Not Given Prednisolone Acetate (Pred Forte 1% Opht Susp) 1 drop OS DAILY [facility] Last Admin: 12/04/18 08:22 Dose: 1 drop Senna/Docusate Sodium (Senokot S 50 Mg-8.6 Mg) 1 tab PO [facility] Last Admin: 12/04/18 21:03 Dose: 1 tab Tramadol HCl (Ultram) 50 mg PO Q6 PRN PRN Reason: Pain, moderate (4-7) Last Admin: 12/03/18 09:38 Dose: 50 mg - Labs Labs: 12/03/18 06:50 12/03/18 06:50 Assessment and Plan (1) Acute blood loss anemia Status: Acute (2) Closed comminuted intertrochanteric fracture of left femur Status: Acute (3) Diabetes mellitus Status: Chronic (4) Hip fracture Status: Acute (5) Hypertension Status: Acute
[2018-12-05] MEDS: Insulin Lispro (humaLOG) 100 Units/ml Inj SC SCH ×4 (07:20→21:54)
[2018-12-05] MEDS: Insulin Lispro Mix 75/25 100 units/ml (HumaLog) 10ml SC SCH ×2 (08:23→21:50)
[2018-12-05] MEDS: AZOPT 1% OD SCH ×2 (08:24→21:53)
[2018-12-05] MEDS: diltiaZEM 120 mg/24 Hours CD Cap PO SCH (08:26)
[2018-12-05] MEDS: Pantoprazole 40 mg EC Tab PO SCH (08:28)
[2018-12-05] MEDS: PrednisoLONE 1% OPTH SUSP OS SCH (08:30)
[2018-12-05] MEDS: COMBIGAN OD SCH ×2 (08:31→21:58)
[2018-12-05] MEDS: REFRESH OU SCH ×4 (08:32→21:47)
[2018-12-05] MEDS: Ofloxacin Ophth 0.3% Soln OS SCH ×3 (09:18→21:52)
--- NOTE | 2018-12-05 17:07 | CP.PCM.PN ---
Subjective - Date & Time of Evaluation Date of Evaluation: 12/03/18 Time of Evaluation: 17:00 - Subjective Subjective: no acute complaints at present Objective - Vital Signs/Intake and Output Vital Signs (last 24 hours): Temp Pulse Resp BP Pulse Ox 97.9 F 92 H 18 132/64 100 12/05/18 08:20 12/05/18 08:38 12/05/18 08:20 12/05/18 08:32 12/05/18 08:20 - Medications Medications: Current Medications Acetaminophen (Tylenol 325mg Tab) 650 mg PO Q6 PRN PRN Reason: Pain, Mild (1-3) Last Admin: 12/05/18 00:39 Dose: 650 mg Acetaminophen (Tylenol 325mg Tab) 650 mg PO Q6 PRN PRN Reason: Fever >100.4 F Allopurinol (Zyloprim) 100 mg PO DAILY [facility] Last Admin: 12/05/18 08:27 Dose: 100 mg Aspirin (Aspirin) 325 mg PO DAILY [facility] Last Admin: 12/05/18 08:26 Dose: 325 mg Calcium Carbonate (Oscal) 500 mg PO BIDWM [facility] Last Admin: 12/05/18 16:29 Dose: 500 mg Carvedilol (Coreg) 3.125 mg PO Q12 [facility] Last Admin: 12/05/18 08:32 Dose: 3.125 mg Cyanocobalamin (Vitamin B12 1000 Mcg Tab) 1,000 mcg PO DAILY [facility] Last Admin: 12/05/18 08:27 Dose: 1,000 mcg Diltiazem HCl (Cardizem Cd) 120 mg PO DAILY [facility] Last Admin: 12/05/18 08:26 Dose: 120 mg Famotidine (Pepcid) 20 mg PO HS [facility] Last Admin: 12/04/18 21:03 Dose: 20 mg Ferrous Sulfate (Feosol) 325 mg PO BID [facility] Last Admin: 12/05/18 16:29 Dose: 325 mg Home Med (Patient's Own Medication) 1 unit PO 2200 [facility] Last Admin: 12/04/18 21:03 Dose: 1 unit Home Med (Patient's Own Medication) 1 unit OD [facility] Last Admin: 12/05/18 08:24 Dose: 1 unit Home Med (Patient's Own Medication) 1 unit OD [facility] Last Admin: 12/05/18 08:31 Dose: 1 unit Home Med (Patient's Own Medication) 1 unit OU QID [facility] Last Admin: 12/05/18 16:28 Dose: 1 unit Insulin Human Lispro (Humalog) 0 units SC [facility]; Protocol Last Admin: 12/05/18 16:38 Dose: Not Given Insulin Lispro Protam/Lispro Human (Humalog Mix 75/25) 8 units SC DAILY [facility] Last Admin: 12/05/18 08:23 Dose: 8 units Insulin Lispro Protam/Lispro Human (Humalog Mix 75/25) 4 units SC [facility] Last Admin: 12/04/18 21:17 Dose: 4 units Lactic Acid (Lac-Hydrin 12% Lotion (225 G)) 1 applic TOP TID [facility] Last Admin: 12/05/18 16:25 Dose: 1 applic Lactulose (Enulose) 20 gm PO DAILY [facility] Last Admin: 12/05/18 08:35 Dose: 20 gm Latanoprost (Xalatan Opht) 1 drop OU [facility] Last Admin: 12/04/18 22:19 Dose: 1 drop Ofloxacin (Ocuflox Ophth 0.3%) 1 drop OS TID@0900,1300,2100 [facility] Last Admin: 12/05/18 12:25 Dose: 1 drop Ondansetron HCl (Zofran Tab) 4 mg PO Q6 PRN PRN Reason: Nausea/Vomiting Last Admin: 11/30/18 13:14 Dose: 4 mg Oxycodone/Acetaminophen (Percocet 5/325 Mg Tab) 1 tab PO Q4 PRN PRN Reason: Pain, severe (8-10) Stop: 12/07/18 09:06 Pantoprazole Sodium (Protonix Ec Tab) 40 mg PO DAILY [facility] Last Admin: 12/05/18 08:28 Dose: 40 mg Potassium Chloride (Klor-Con 10) 10 meq PO DAILY [facility] Last Admin: 11/25/18 09:35 Dose: Not Given Prednisolone Acetate (Pred Forte 1% Opht Susp) 1 drop OS DAILY [facility] Last Admin: 12/05/18 08:30 Dose: 1 drop Senna/Docusate Sodium (Senokot S 50 Mg-8.6 Mg) 1 tab PO [facility] Last Admin: 12/04/18 21:03 Dose: 1 tab Tramadol HCl (Ultram) 50 mg PO Q6 PRN PRN Reason: Pain, moderate (4-7) Last Admin: 12/05/18 15:41 Dose: 50 mg - Labs Labs: 12/03/18 06:50 12/03/18 06:50 - Constitutional Appears: Well - Head Exam Head Exam: ATRAUMATIC, NORMAL INSPECTION, NORMOCEPHALIC - Eye Exam Eye Exam: EOMI, Normal appearance Pupil Exam: NORMAL ACCOMODATION, PERRL - ENT Exam ENT Exam: Mucous Membranes Moist, Normal Exam - Neck Exam Neck Exam: Full ROM - Respiratory Exam Respiratory Exam: NORMAL BREATHING PATTERN - Cardiovascular Exam Cardiovascular Exam: REGULAR RHYTHM - GI/Abdominal Exam GI & Abdominal Exam: Normal Bowel Sounds - Rectal Exam Rectal Exam: NORMAL INSPECTION - Exam External exam: NORMAL EXTERNAL EXAM - Extremities Exam Extremities Exam: Normal Capillary Refill - Back Exam Back Exam: NORMAL INSPECTION - Neurological Exam Neurological Exam: Alert Neuro motor strength exam: Left Lower Extremity: 3 - Psychiatric Exam Psychiatric exam: Normal Mood - Skin Skin Exam: Normal Color Assessment and Plan (1) Closed comminuted intertrochanteric fracture of left femur Assessment & Plan: plan for physical, occupational, rec therapy covering for Dr Herrera Status: Acute (2) Hypertension Status: Acute (3) Renal insufficiency Status: Acute
[2018-12-05] MEDS: VESICARE 5 MG PO SCH (21:39)
[2018-12-05] MEDS: Docusate-Senna 50 mg-8.6 mg Tab PO SCH (21:42)
[2018-12-05] MEDS: Latanoprost 0.005% Opht SOUTION OU SCH (22:03)
[2018-12-06] MEDS: Insulin Lispro (humaLOG) 100 Units/ml Inj SC SCH ×4 (07:25→21:48)
[2018-12-06] MEDS: diltiaZEM 120 mg/24 Hours CD Cap PO SCH (08:50)
[2018-12-06] MEDS: Pantoprazole 40 mg EC Tab PO SCH (08:51)
[2018-12-06] MEDS: Ofloxacin Ophth 0.3% Soln OS SCH ×3 (08:51→21:41)
[2018-12-06] MEDS: PrednisoLONE 1% OPTH SUSP OS SCH (08:51)
[2018-12-06] MEDS: Insulin Lispro Mix 75/25 100 units/ml (HumaLog) 10ml SC SCH ×2 (08:52→21:45)
--- NOTE | 2018-12-06 08:53 | CP.PCM.PN ---
Subjective - Date & Time of Evaluation Date of Evaluation: 12/06/18 Time of Evaluation: 08:15 - Subjective Subjective: Patient seen and examined at bedside comfortable. Nurses report mild serous wound drainage over weekend, sterile dressings changed. Pain is well controlled with oral meds. Tolerating PT well. Ambulating with RW. No other complaints. Objective - Vital Signs/Intake and Output Vital Signs (last 24 hours): Temp Pulse Resp BP Pulse Ox 97.0 F L 83 20 125/58 L 100 12/05/18 21:00 12/05/18 21:40 12/05/18 21:00 12/05/18 21:40 12/05/18 21:00 - Medications Medications: Current Medications Acetaminophen (Tylenol 325mg Tab) 650 mg PO Q6 PRN PRN Reason: Pain, Mild (1-3) Last Admin: 12/05/18 00:39 Dose: 650 mg Acetaminophen (Tylenol 325mg Tab) 650 mg PO Q6 PRN PRN Reason: Fever >100.4 F Allopurinol (Zyloprim) 100 mg PO DAILY [facility] Last Admin: 12/05/18 08:27 Dose: 100 mg Aspirin (Aspirin) 325 mg PO DAILY [facility] Last Admin: 12/05/18 08:26 Dose: 325 mg Calcium Carbonate (Oscal) 500 mg PO BIDWM [facility] Last Admin: 12/05/18 16:29 Dose: 500 mg Carvedilol (Coreg) 3.125 mg PO Q12 [facility] Last Admin: 12/05/18 21:40 Dose: 3.125 mg Cyanocobalamin (Vitamin B12 1000 Mcg Tab) 1,000 mcg PO DAILY [facility] Last Admin: 12/05/18 08:27 Dose: 1,000 mcg Diltiazem HCl (Cardizem Cd) 120 mg PO DAILY [facility] Last Admin: 12/05/18 08:26 Dose: 120 mg Famotidine (Pepcid) 20 mg PO HS [facility] Last Admin: 12/05/18 21:39 Dose: 20 mg Ferrous Sulfate (Feosol) 325 mg PO BID [facility] Last Admin: 12/05/18 16:29 Dose: 325 mg Home Med (Patient's Own Medication) 1 unit PO 2200 [facility] Last Admin: 12/05/18 21:39 Dose: 1 unit Home Med (Patient's Own Medication) 1 unit OD [facility] Last Admin: 12/05/18 21:53 Dose: 1 unit Home Med (Patient's Own Medication) 1 unit OD [facility] Last Admin: 12/05/18 21:58 Dose: 1 unit Home Med (Patient's Own Medication) 1 unit OU QID [facility] Last Admin: 12/05/18 21:47 Dose: 1 unit Insulin Human Lispro (Humalog) 0 units SC ACHS [facility]; Protocol Last Admin: 12/06/18 07:25 Dose: Not Given Insulin Lispro Protam/Lispro Human (Humalog Mix 75/25) 8 units SC DAILY [facility] Last Admin: 12/05/18 08:23 Dose: 8 units Insulin Lispro Protam/Lispro Human (Humalog Mix 75/25) 4 units SC [facility] Last Admin: 12/05/18 21:50 Dose: 4 units Lactic Acid (Lac-Hydrin 12% Lotion (225 G)) 1 applic TOP TID [facility] Last Admin: 12/05/18 16:25 Dose: 1 applic Lactulose (Enulose) 20 gm PO DAILY [facility] Last Admin: 12/05/18 08:35 Dose: 20 gm Latanoprost (Xalatan Opht) 1 drop OU [facility] Last Admin: 12/05/18 22:03 Dose: 1 drop Ofloxacin (Ocuflox Ophth 0.3%) 1 drop OS TID@0900,1300,2100 [facility] Last Admin: 12/05/18 21:52 Dose: 1 drop Ondansetron HCl (Zofran Tab) 4 mg PO Q6 PRN PRN Reason: Nausea/Vomiting Last Admin: 11/30/18 13:14 Dose: 4 mg Oxycodone/Acetaminophen (Percocet 5/325 Mg Tab) 1 tab PO Q4 PRN PRN Reason: Pain, severe (8-10) Stop: 12/07/18 09:06 Pantoprazole Sodium (Protonix Ec Tab) 40 mg PO DAILY [facility] Last Admin: 12/05/18 08:28 Dose: 40 mg Potassium Chloride (Klor-Con 10) 10 meq PO DAILY [facility] Last Admin: 11/25/18 09:35 Dose: Not Given Prednisolone Acetate (Pred Forte 1% Opht Susp) 1 drop OS DAILY [facility] Last Admin: 12/05/18 08:30 Dose: 1 drop Senna/Docusate Sodium (Senokot S 50 Mg-8.6 Mg) 1 tab PO HS [facility] Last Admin: 12/05/18 21:42 Dose: Not Given Tramadol HCl (Ultram) 50 mg PO Q6 PRN PRN Reason: Pain, moderate (4-7) Last Admin: 12/05/18 15:41 Dose: 50 mg - Labs Labs: 12/03/18 06:50 12/03/18 06:50 - Extremities Exam Additional comments: LLE: mild thigh swelling, compartments soft Dressings CDI sensation intact SP/DP/TN motor intact EHL/FHl/TA/G pedal pulse intact calves soft mildly tender b/l Assessment and Plan (1) Closed comminuted intertrochanteric fracture of left femur Assessment & Plan: POD#17 s/p L hip ORIF with IM nail -dry dressings changes prn -will leave carmen in longer in light of wound drainage -PT/OT WBAT -DVT ppx -orthopedically stable -d/w Dr. Mock who agrees with above Status: Acute
[2018-12-06] MEDS: REFRESH OU SCH ×4 (09:03→21:36)
[2018-12-06] MEDS: COMBIGAN OD SCH ×2 (09:05→21:48)
[2018-12-06] MEDS: AZOPT 1% OD SCH ×2 (09:06→21:43)
--- NOTE | 2018-12-06 13:08 | PCM.PSYTMC ---
Acute Rehab Team Conference - - Vital Signs: Vital Signs (Last 8 Hours): Vital Signs 12/06/18 12/06/18 12/06/18 08:27 08:47 08:50 Temperature Pulse Rate 86 78 78 Respiratory Rate Blood Pressure 120/80 120/80 O2 Sat by Pulse 96 Oximetry 12/06/18 12/06/18 09:00 10:00 Temperature 98.8 F 98.7 F Pulse Rate 78 Respiratory 19 18 Rate Blood Pressure 128/86 120/80 O2 Sat by Pulse Oximetry Pain: 1 - Precautions: Precautions: Fall Prevention, Hip Precautions, Pressure Ulcer - Medications/Other Issues: Comment: Pain management - Consults: Comment: Dr. Flynn - Skin: Incision Site: left hip Dressing Status: Clean, Dry, Intact Incision: Healing Well, Well Approximated Incision Line Treatment: clean with normal saline cover with offsite dressing. - Toileting: Toileting: Contact Guard - Bladder Management: Bladder Pattern: Incontinent Voiding Method: Toilet, Purewick (Female external catheter) Bladder Management: Contact Guard - Transfers: Transfers: Contact Guard - ADL's: ADL's: Contact Guard - Pain Management: Other Intervention:: Pharmacological and no pharmacological medications provided. - Patient/Family Teaching: Other Intervention:: Medication regimen - Goals/Time Frame: Comment: Patient will be more independent with ADL's and transfers. - Provider: Registered Nurse:: Kari Bowling Physical Therapy - Bed Mobility Bed Mobility: Verbal Cues, Moderate Assistance - Transfers Wheelchair to Mat: Verbal Cues, Contact Guard Sit to Stand: Verbal Cues, Contact Guard - Ambulation Level of Assistance: Supervision, Verbal Cues, Contact Guard Distance (ft.): 130 Assistive Devices: Rolling Walker - Stair Negotiation Stairs: Level of Assistance: Not Tested - Standing Balance Static Stand: Supervision Comment: RW - Pain Pain (assessed during therapy session): 6 Alleviating Techniques: Medication, Ice Comment: -L hip pain. -R knee pain (new) - Insight/Carryover Insight/Carryover: Good - Patient/Family Education Comment: safety, POC - Assessment/Plan Assessment: Pt actively participates in PT tx sessions focusing on BLE strengthening exercises, endurance activities, and functional mobility training. Pt requires mod A for bed mobility, CGA for transfers, clsoe S/CGA for gait with RW. Pt limited by L hip pain and new onset R knee pain. Rn aware of pain complaints. Pt will continue to benefit from skilled PT interventions to address deficits, reduce fall risk, and maximize functional independence. - Goals Timeframe: 10 days Goals: sit < > supine with supervision. All functional transfers mod I with RW. 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 - ADL/IADL Self Feeding: Set-up Help Grooming: Set-up Help Bathing-Upper Ext: Verbal Cues, Set-up Help, Minimal Assistance Bathing-Lower Ext: Verbal Cues, Set-up Help, Moderate Assistance Dressing-Upper Ext: Supervision, Verbal Cues, Set-up Help Dressing-Lower Ext: Verbal Cues, Set-up Help, Moderate Assistance Comment: uses assistive devices for lower body dressing - Sitting Balance Static Sitting: Independent without upper extremity support Dynamic Sitting: Reaches across midline, Reaches out of base of support, Reaches within base of support, Requires supervision Comment: seated unsupported - Transfers Wheelchair to Bed Transfers: Verbal Cues, Set-up Help, Minimal Assistance Toilet Transfers: Supervision, Verbal Cues, Set-up Help, Contact Guard Comment: shower transfers: min assist and verbal cues - Wheelchair Management Level of Assistance: Verbal Cues, Set-up Help, Minimal Assistance Distance (ft.): 50 - Upper Extremity Status Right Upper Extremity Comment: A/PROM WFLs, strength 4-/5 Left Upper Extremity Comment: A/PROM WFLS, strength 4-/5 - Pain Pain (assessed during therapy session): 6 Alleviating Techniques: Medication, Ice, Distraction, Inactivity Comment: L hip/thigh area - Insight/Carryover Insight/Carryover: Good - Patient/Family Education Comment: -ongoing for adl, transfers, bed mobility and functional mbility training uisng compensatory/adaptive strategies. -rehab/OT goals, plan of care. -educated on optimal seating surfaces. -review uses/applications of commode, transfer tub bench, bed rails, hip kit--further training warranted. -Ongoing---E/M ENGINEER educated on safety, adaptive/compensatory techniques for transfers, bed mobility, lower body dressing/self care--further training needed. -endurance/strength training as needed to complete self care, transfers and mobility/Iadls - Assessment/Plan Assessment: Pt is a 78 year old female with dx:L hip fx after mechanical fall, s/p L trochanteric femoral nailing--WBAT. *Precauutions: falls, aspiration precautions, cardiac, impaired vision/auditory, *NO BP check on RUE. Pt limited by frequent diarrhea(clothing changes), L hip pain, impaired endurance. Pt continues to make steady gains in adls, transfers/bed mobility and overall safety awareness although needs frequent rest breaks. Pt repsonds well to cold pack for pain management--pain levl from 02/25 to 12/26 post cold pack & rest tx. Pt may benefit from bedrails, 3 in one comode, hip kit, transfer tub bench with back to increase function/safety--to discuss with pt's daughter before finalize order. Recommend 24 hour care/assistance 2' visual and physical impairments. Pt will continue to benefit from skilled Occupational Therapy to address functional impairments to maxmize function in self care, transfers/mobility using adaptive/compensatory strtegies, + DME needs assessment, caregiver ed for safe transition home with 24 hour care. - Goals Timeframe: 1 week Comment: -UPPER BODY DRESSING: I/setup. -LOWER BODY DRESSING: min assist and verbal cues with assisting devices prn. -BED MOBILITY: supine<->sit with Supervision and verbal cues. -TOILETING: Supervision/CS and verbal cues steadying with RW. -TRANSFERS:<->bed, commode, chair and other surfaces with Supervision and verbal cues with RW. -LIGHT HOMEMAKING TASKS: min assist and verbal cues with RW. -CAREGIVER ED: Pt's caregiver to be I/safe assisting pt with adls, transfers/mobility & Iadls. -W/C MANAGEMENT/PROPULSION: 150 feet with Supervision, manage brakes iwth Supervision and verbal cues for safety - Provider Occupational Therapist:: Ana Jay License Number: [id number] Recreational Therapy - Participation Participation: Participates in Individual and/or Group Sessions - Attendance Attendance: 3-5 times per week - Activities Leisure Activities: Cards and Games - Socialization Level of Socialization: Initiates/interacts freely with care givers and peer - Assessment Assessment/Plan: Pt is agreeable to participate in recreation therapy sessions following encouragement to participate in sessions. Pt was oriented to modified sergio card task and connect four task. Pt requires min verbal cues for carryover of task rules and carries over 50% of task rules with verbal cues of connect fours. Pt's barriers to participation is decrease arousal elvel and decrease activity tolerance as pt has only tolerated one 30 minute session. Pt's mood is stable-positive although flat at times if fatigue. Will continue to encourage throughout stay on unit. Problems Currently Limiting Participation: impaired vision-L eye blindness, R eye impaired vision, weakness, pain, anxiety, decrease activity tolerance level, decrease leisure awareness level Goals and Time Frame: Pt will tolerate participating in 30 minutes of recreation therapy session with supervision by date of discharge. - Provider Therapist: Afshan Lovelace Nutrition - Current Diet Current Diet/Supplement/Feedings: Regular diet - Appetite Percent Meal Consumed: 50-74% - Assessment/Goals/Time Frame Assessments/Goals/Time Frame: Pt at high nutritional risk. goals: 1. Pt to consume 75-100% of meals (unmet, Continue). 2. Blood glucoses to be between 70-180 mg/dl (Met, continue). Follow-up due on 12/09/2018 - Provider Provider: Camilla Cooley Case Management - Psychosocial Assessment Support Systems: Patient's daughter Keyona is very supportive and involved in [phone] Psychological Interventions/Needs: Patient is alert oriented x3 and able to verbalize needs. Discharge Concerns: Patient will require 24 hour supervision/assist at home due to history of falls and patient is currently requiring CGA for mobility. Patient lives alone, however, charlene Rand is very supportive Patient/Family Meeting: CM met with patient and rehab team. Intervention/Goal/Outcome: 1. GOAL: 24 hour supervision/assist at home- patient's daughter and daughter in law to collectively provide 24 hour care at home- patient's daughter to be available every day through discharge for caregiver training and education. PLAN: Home with [facility]- [facility]. 2. resumption of [facility] services through [facility], prescription to be faxed for re-evaluation of hours. 3. DME needs- new RW, tub transfer bench. 4. f/u appts to be scheduled for Dr. Flynn (PMD) and Dr. Gemma Franco (corneal specialist). 5. Tentative discharge date: 12/10/2018 - Discharge Plan Discharge Plan: Home with services Home Services: [facility], [facility] - Provider Provider: Lamine Cox License Number: [id number] Rehabilitation Plan - Treatment Plan Treatment Plan: Physical Therapy, Occupational Therapy, Dietary, Pain Management, Patient/Family Education - Discharge Plan Estimated Date of Discharge: 12/10/18 Discharge to: Home
--- NOTE | 2018-12-06 13:30 | CP.PCM.PN ---
Subjective - Date & Time of Evaluation Date of Evaluation: 12/06/18 Time of Evaluation: 13:29 - Subjective Subjective: Patient seen in the room daughter is present doing well and we discussed d/c plans denies sob/cp will try and set up bed and get DME in place prior to d/c continue current care. Objective - Vital Signs/Intake and Output Vital Signs (last 24 hours): Temp Pulse Resp BP Pulse Ox 98.7 F 78 18 120/80 96 12/06/18 10:00 12/06/18 09:00 12/06/18 10:00 12/06/18 10:00 12/06/18 08:27 - Medications Medications: Current Medications Acetaminophen (Tylenol 325mg Tab) 650 mg PO Q6 PRN PRN Reason: Pain, Mild (1-3) Last Admin: 12/05/18 00:39 Dose: 650 mg Acetaminophen (Tylenol 325mg Tab) 650 mg PO Q6 PRN PRN Reason: Fever >100.4 F Allopurinol (Zyloprim) 100 mg PO DAILY [facility] Last Admin: 12/06/18 08:50 Dose: 100 mg Aspirin (Aspirin) 325 mg PO DAILY [facility] Last Admin: 12/06/18 08:50 Dose: 325 mg Calcium Carbonate (Oscal) 500 mg PO BIDWM [facility] Last Admin: 12/06/18 09:04 Dose: 500 mg Carvedilol (Coreg) 3.125 mg PO Q12 [facility] Last Admin: 12/06/18 08:47 Dose: 3.125 mg Cyanocobalamin (Vitamin B12 1000 Mcg Tab) 1,000 mcg PO DAILY [facility] Last Admin: 12/06/18 09:05 Dose: 1,000 mcg Diltiazem HCl (Cardizem Cd) 120 mg PO DAILY [facility] Last Admin: 12/06/18 08:50 Dose: 120 mg Famotidine (Pepcid) 20 mg PO HS [facility] Last Admin: 12/05/18 21:39 Dose: 20 mg Ferrous Sulfate (Feosol) 325 mg PO BID [facility] Last Admin: 12/06/18 09:04 Dose: 325 mg Home Med (Patient's Own Medication) 1 unit PO 2200 [facility] Last Admin: 12/05/18 21:39 Dose: 1 unit Home Med (Patient's Own Medication) 1 unit OD AMHS [facility] Last Admin: 12/06/18 09:06 Dose: 1 unit Home Med (Patient's Own Medication) 1 unit OD AMHS [facility] Last Admin: 12/06/18 09:05 Dose: 1 unit Home Med (Patient's Own Medication) 1 unit OU QID [facility] Last Admin: 12/06/18 12:20 Dose: 1 unit Insulin Human Lispro (Humalog) 0 units SC ACHS [facility]; Protocol Last Admin: 12/06/18 12:18 Dose: Not Given Insulin Lispro Protam/Lispro Human (Humalog Mix 75/25) 8 units SC DAILY [facility] Last Admin: 12/06/18 08:52 Dose: 8 units Insulin Lispro Protam/Lispro Human (Humalog Mix 75/25) 4 units SC [facility] Last Admin: 12/05/18 21:50 Dose: 4 units Lactic Acid (Lac-Hydrin 12% Lotion (225 G)) 1 applic TOP TID [facility] Last Admin: 12/06/18 12:20 Dose: 1 applic Lactulose (Enulose) 20 gm PO DAILY [facility] Last Admin: 12/05/18 08:35 Dose: 20 gm Latanoprost (Xalatan Opht) 1 drop OU [facility] Last Admin: 12/05/18 22:03 Dose: 1 drop Ofloxacin (Ocuflox Ophth 0.3%) 1 drop OS TID@0900,1300,2100 [facility] Last Admin: 12/06/18 12:20 Dose: 1 drop Ondansetron HCl (Zofran Tab) 4 mg PO Q6 PRN PRN Reason: Nausea/Vomiting Last Admin: 11/30/18 13:14 Dose: 4 mg Oxycodone/Acetaminophen (Percocet 5/325 Mg Tab) 1 tab PO Q4 PRN PRN Reason: Pain, severe (8-10) Stop: 12/07/18 09:06 Pantoprazole Sodium (Protonix Ec Tab) 40 mg PO DAILY [facility] Last Admin: 12/06/18 08:51 Dose: 40 mg Potassium Chloride (Klor-Con 10) 10 meq PO DAILY [facility] Last Admin: 11/25/18 09:35 Dose: Not Given Prednisolone Acetate (Pred Forte 1% Opht Susp) 1 drop OS DAILY [facility] Last Admin: 12/06/18 08:51 Dose: 1 drop Senna/Docusate Sodium (Senokot S 50 Mg-8.6 Mg) 1 tab PO [facility] Last Admin: 12/05/18 21:42 Dose: Not Given Tramadol HCl (Ultram) 50 mg PO Q6 PRN PRN Reason: Pain, moderate (4-7) Last Admin: 12/06/18 09:32 Dose: 50 mg - Labs Labs: 12/03/18 06:50 12/03/18 06:50
[2018-12-06] MEDS: Docusate-Senna 50 mg-8.6 mg Tab PO SCH (21:40)
[2018-12-06] MEDS: VESICARE 5 MG PO SCH (21:41)
[2018-12-06] MEDS: Latanoprost 0.005% Opht SOUTION OU SCH (21:53)
[2018-12-06 22:59] LABS: RETINOL BINDING PROTEIN 3.1 mg/dL (1.5-6.7)
[2018-12-07] MEDS: Insulin Lispro (humaLOG) 100 Units/ml Inj SC SCH ×4 (07:44→21:52)
[2018-12-07] MEDS: AZOPT 1% OD SCH ×2 (08:46→22:44)
[2018-12-07] MEDS: Insulin Lispro Mix 75/25 100 units/ml (HumaLog) 10ml SC SCH ×2 (08:48→22:47)
[2018-12-07] MEDS: Ofloxacin Ophth 0.3% Soln OS SCH ×3 (08:51→21:32)
[2018-12-07] MEDS: diltiaZEM 120 mg/24 Hours CD Cap PO SCH (08:52)
[2018-12-07] MEDS: REFRESH OU SCH ×4 (08:53→22:55)
[2018-12-07] MEDS: PrednisoLONE 1% OPTH SUSP OS SCH (08:55)
[2018-12-07] MEDS: COMBIGAN OD SCH ×2 (08:57→21:48)
[2018-12-07] MEDS: Pantoprazole 40 mg EC Tab PO SCH (09:09)
[2018-12-07] MEDS: VESICARE 5 MG PO SCH (21:39)
[2018-12-07] MEDS: Docusate-Senna 50 mg-8.6 mg Tab PO SCH (21:39)
[2018-12-07] MEDS: Simethicone 80 mg Chewtab PO PRN (23:55)
[2018-12-08 06:03] LABS: BASO # 0.1 K/uL (0.0-0.2); EOS # 0.2 K/uL (0.0-0.7); EOS % 3.4 % (0.0-4.0); HEMOGLOBIN 8.3 g/dL (12.0-16.0); LYMPH % 17.1 % (20.0-40.0); MEAN CORPUSCULAR HEMOGLOBIN 30.4 pg (27.0-31.0); MEAN PLATELET VOLUME 7.6 fl (7.2-11.7); MONO # 0.6 K/uL (0.0-0.8); MONO % 11.1 % (0.0-10.0); NEUT # 3.8 K/uL (1.8-7.0); NEUT % 67.4 % (50.0-75.0); NRBC % 0.1 % (0.0-0.0); RBC 2.72 Mil/uL (3.80-5.20); RED CELL DISTRIBUTION WIDTH 15.9 % (11.5-14.5); WHITE BLOOD COUNT 5.6 K/uL (4.8-10.8)
[2018-12-08 06:30] LABS: ALBUMIN 2.9 g/dL (3.5-5.0); CALCIUM 8.4 mg/dL (8.4-10.2)
[2018-12-08] MEDS: Insulin Lispro (humaLOG) 100 Units/ml Inj SC SCH ×4 (07:20→22:23)
[2018-12-08 08:23] LABS: SQUAMOUS EPITHIAL 19 /hpf (0-5); URINE BACTERIA MOD (<OCC); URINE BILIRUBIN NEGATIVE (NEGATIVE); URINE BLOOD SMALL (NEGATIVE); URINE CLARITY TURBID (Clear); URINE COLOR YELLOW (YELLOW); URINE GLUCOSE (UA) NEG (NEGATIVE); URINE LEUKOCYTE ESTERASE LARGE Leu/uL (Negative); URINE PROTEIN 100 mg/dL (NEGATIVE); URINE UROBILINOGEN 0.2-1.0 mg/dL (0.2-1.0); WBC CLUMPS MOD /hpf
[2018-12-08] MEDS: Pantoprazole 40 mg EC Tab PO SCH (09:09)
[2018-12-08] MEDS: Simethicone 80 mg Chewtab PO PRN (09:10)
[2018-12-08] MEDS: AZOPT 1% OD SCH ×2 (09:11→22:17)
[2018-12-08] MEDS: REFRESH OU SCH ×4 (09:12→23:03)
[2018-12-08] MEDS: diltiaZEM 120 mg/24 Hours CD Cap PO SCH (09:12)
[2018-12-08] MEDS: Insulin Lispro Mix 75/25 100 units/ml (HumaLog) 10ml SC SCH ×2 (09:12→22:19)
[2018-12-08] MEDS: COMBIGAN OD SCH ×2 (09:13→22:45)
[2018-12-08] MEDS: Ofloxacin Ophth 0.3% Soln OS SCH ×3 (09:13→21:21)
[2018-12-08] MEDS: PrednisoLONE 1% OPTH SUSP OS SCH (09:14)
[2018-12-08] MEDS: Docusate-Senna 50 mg-8.6 mg Tab PO SCH (21:27)
[2018-12-08] MEDS: VESICARE 5 MG PO SCH (22:17)
[2018-12-09] MEDS: Insulin Lispro (humaLOG) 100 Units/ml Inj SC SCH ×4 (06:59→22:16)
[2018-12-09] MEDS: Ofloxacin Ophth 0.3% Soln OS SCH ×3 (08:37→22:07)
[2018-12-09] MEDS: PrednisoLONE 1% OPTH SUSP OS SCH (08:37)
[2018-12-09] MEDS: AZOPT 1% OD SCH ×2 (08:37→22:08)
[2018-12-09] MEDS: COMBIGAN OD SCH ×2 (08:37→22:14)
[2018-12-09] MEDS: REFRESH OU SCH ×4 (08:37→22:02)
[2018-12-09] MEDS: Insulin Lispro Mix 75/25 100 units/ml (HumaLog) 10ml SC SCH ×2 (08:38→22:10)
[2018-12-09] MEDS: diltiaZEM 120 mg/24 Hours CD Cap PO SCH (08:41)
[2018-12-09] MEDS: Pantoprazole 40 mg EC Tab PO SCH (08:43)
--- NOTE | 2018-12-09 11:26 | CP.PCM.PN ---
Subjective - Date & Time of Evaluation Date of Evaluation: 12/09/18 Time of Evaluation: 11:25 - Subjective Subjective: Patient seen in the room family is present and getting training by OT for planned discharge no pain ambulating with CS and RW continue current care. Objective - Vital Signs/Intake and Output Vital Signs (last 24 hours): Temp Pulse Resp BP Pulse Ox 98.2 F 80 19 116/85 99 12/09/18 08:30 12/09/18 08:41 12/09/18 08:30 12/09/18 08:41 12/09/18 08:30 - Medications Medications: Current Medications Acetaminophen (Tylenol 325mg Tab) 650 mg PO Q6 PRN PRN Reason: Pain, Mild (1-3) Last Admin: 12/05/18 00:39 Dose: 650 mg Acetaminophen (Tylenol 325mg Tab) 650 mg PO Q6 PRN PRN Reason: Fever >100.4 F Allopurinol (Zyloprim) 100 mg PO DAILY [facility] Last Admin: 12/09/18 08:40 Dose: 100 mg Aspirin (Aspirin) 325 mg PO DAILY [facility] Last Admin: 12/09/18 08:42 Dose: 325 mg Calcium Carbonate (Oscal) 500 mg PO BIDWM [facility] Last Admin: 12/09/18 08:41 Dose: 500 mg Carvedilol (Coreg) 3.125 mg PO Q12 [facility] Last Admin: 12/09/18 08:41 Dose: 3.125 mg Cephalexin Monohydrate (Keflex) 500 mg PO Q8 [facility]; Protocol Stop: 12/18/18 22:00 Last Admin: 12/09/18 06:48 Dose: 500 mg Cyanocobalamin (Vitamin B12 1000 Mcg Tab) 1,000 mcg PO DAILY [facility] Last Admin: 12/09/18 08:40 Dose: 1,000 mcg Diltiazem HCl (Cardizem Cd) 120 mg PO DAILY [facility] Last Admin: 12/09/18 08:41 Dose: 120 mg Famotidine (Pepcid) 20 mg PO HS [facility] Last Admin: 12/08/18 21:26 Dose: 20 mg Ferrous Sulfate (Feosol) 325 mg PO BID [facility] Last Admin: 12/09/18 08:39 Dose: 325 mg Home Med (Patient's Own Medication) 1 unit PO 2200 [facility] Last Admin: 12/08/18 22:17 Dose: 1 unit Home Med (Patient's Own Medication) 1 unit OD AMHS [facility] Last Admin: 12/09/18 08:37 Dose: 1 unit Home Med (Patient's Own Medication) 1 unit OD AMHS [facility] Last Admin: 12/09/18 08:37 Dose: 1 unit Home Med (Patient's Own Medication) 1 unit OU QID [facility] Last Admin: 12/09/18 08:37 Dose: 1 unit Home Med (Patient's Own Medication) 1 unit OU HS [facility] Last Admin: 12/08/18 22:53 Dose: 1 unit Insulin Human Lispro (Humalog) 0 units SC [facility]; Protocol Last Admin: 12/09/18 06:59 Dose: Not Given Insulin Lispro Protam/Lispro Human (Humalog Mix 75/25) 8 units SC DAILY [facility] Last Admin: 12/09/18 08:38 Dose: 8 units Insulin Lispro Protam/Lispro Human (Humalog Mix 75/25) 4 units SC [facility] Last Admin: 12/08/18 22:19 Dose: 4 units Lactic Acid (Lac-Hydrin 12% Lotion (225 G)) 1 applic TOP TID [facility] Last Admin: 12/09/18 08:38 Dose: 1 applic Lactulose (Enulose) 20 gm PO DAILY [facility] Last Admin: 12/05/18 08:35 Dose: 20 gm Ofloxacin (Ocuflox Ophth 0.3%) 1 drop OS TID@0900,1300,2100 [facility] Last Admin: 12/09/18 08:37 Dose: 1 drop Ondansetron HCl (Zofran Tab) 4 mg PO Q6 PRN PRN Reason: Nausea/Vomiting Last Admin: 11/30/18 13:14 Dose: 4 mg Pantoprazole Sodium (Protonix Ec Tab) 40 mg PO DAILY [facility] Last Admin: 12/09/18 08:43 Dose: 40 mg Potassium Chloride (Klor-Con 10) 10 meq PO DAILY [facility] Last Admin: 11/25/18 09:35 Dose: Not Given Prednisolone Acetate (Pred Forte 1% Opht Susp) 1 drop OS DAILY [facility] Last Admin: 12/09/18 08:37 Dose: 1 drop Senna/Docusate Sodium (Senokot S 50 Mg-8.6 Mg) 1 tab PO [facility] Last Admin: 12/08/18 21:27 Dose: Not Given Simethicone (Mylicon Chew Tab) 80 mg PO Q6 PRN PRN Reason: Flatulence Last Admin: 12/08/18 09:10 Dose: 80 mg Tramadol HCl (Ultram) 50 mg PO Q6 PRN PRN Reason: Pain, moderate (4-7) Last Admin: 12/09/18 09:29 Dose: 50 mg - Labs Labs: 12/08/18 05:51 12/08/18 05:51
[2018-12-09] MEDS: Simethicone 80 mg Chewtab PO PRN (17:09)
[2018-12-09 21:31] VITALS: TEMP 98.1; O2SAT 100
[2018-12-09] MEDS: Docusate-Senna 50 mg-8.6 mg Tab PO SCH (22:06)
[2018-12-09] MEDS: VESICARE 5 MG PO SCH (22:10)
[2018-12-10 07:38] VITALS: BP 140/77; PULSE 81; RESP 18
[2018-12-10] MEDS: Insulin Lispro (humaLOG) 100 Units/ml Inj SC SCH ×2 (08:02→12:09)
[2018-12-10] MEDS: diltiaZEM 120 mg/24 Hours CD Cap PO SCH (08:35)
[2018-12-10] MEDS: Insulin Lispro Mix 75/25 100 units/ml (HumaLog) 10ml SC SCH (08:36)
[2018-12-10] MEDS: REFRESH OU SCH (08:37)
[2018-12-10] MEDS: Ofloxacin Ophth 0.3% Soln OS SCH (08:38)
[2018-12-10] MEDS: COMBIGAN OD SCH (08:40)
[2018-12-10] MEDS: AZOPT 1% OD SCH (08:40)
[2018-12-10] MEDS: PrednisoLONE 1% OPTH SUSP OS SCH (08:41)
[2018-12-10] MEDS: Pantoprazole 40 mg EC Tab PO SCH (08:42)
--- NOTE | 2018-12-10 09:12 | CP.PCM.PN ---
Subjective - Date & Time of Evaluation Date of Evaluation: 12/10/18 Time of Evaluation: 09:10 - Subjective Subjective: Angy Yip, born 1940 who has been admitted to [facility] after a fall with resultant left hip fracture. S/P ORIF by Dr Mock. Post-operatively she has done quite well in spite of her age and other physical limitations. She is set for d/c home today Objective - Vital Signs/Intake and Output Vital Signs (last 24 hours): Temp Pulse Resp BP Pulse Ox 98.1 F 81 18 140/77 100 12/10/18 07:38 12/10/18 08:36 12/10/18 07:38 12/10/18 08:36 12/10/18 07:38 - Medications Medications: Current Medications Acetaminophen (Tylenol 325mg Tab) 650 mg PO Q6 PRN PRN Reason: Pain, Mild (1-3) Last Admin: 12/05/18 00:39 Dose: 650 mg Acetaminophen (Tylenol 325mg Tab) 650 mg PO Q6 PRN PRN Reason: Fever >100.4 F Allopurinol (Zyloprim) 100 mg PO DAILY [facility] Last Admin: 12/10/18 08:42 Dose: 100 mg Aspirin (Aspirin) 325 mg PO DAILY [facility] Last Admin: 12/10/18 08:35 Dose: 325 mg Calcium Carbonate (Oscal) 500 mg PO BIDWM [facility] Last Admin: 12/10/18 08:34 Dose: 500 mg Carvedilol (Coreg) 3.125 mg PO Q12 [facility] Last Admin: 12/10/18 08:36 Dose: 3.125 mg Cephalexin Monohydrate (Keflex) 500 mg PO Q8 [facility]; Protocol Stop: 12/18/18 22:00 Last Admin: 12/10/18 06:24 Dose: 500 mg Cyanocobalamin (Vitamin B12 1000 Mcg Tab) 1,000 mcg PO DAILY [facility] Last Admin: 12/10/18 08:42 Dose: 1,000 mcg Diltiazem HCl (Cardizem Cd) 120 mg PO DAILY [facility] Last Admin: 12/10/18 08:35 Dose: 120 mg Famotidine (Pepcid) 20 mg PO HS [facility] Last Admin: 12/09/18 22:06 Dose: 20 mg Ferrous Sulfate (Feosol) 325 mg PO BID [facility] Last Admin: 12/10/18 08:36 Dose: 325 mg Home Med (Patient's Own Medication) 1 unit PO 2200 [facility] Last Admin: 12/09/18 22:10 Dose: Not Given Home Med (Patient's Own Medication) 1 unit OD AMHS [facility] Last Admin: 12/10/18 08:40 Dose: 1 unit Home Med (Patient's Own Medication) 1 unit OD AMHS [facility] Last Admin: 12/10/18 08:40 Dose: 1 unit Home Med (Patient's Own Medication) 1 unit OU QID [facility] Last Admin: 12/10/18 08:37 Dose: 1 unit Home Med (Patient's Own Medication) 1 unit OU HS [facility] Last Admin: 12/09/18 22:22 Dose: 1 unit Insulin Human Lispro (Humalog) 0 units SC [facility]; Protocol Last Admin: 12/10/18 08:02 Dose: Not Given Insulin Lispro Protam/Lispro Human (Humalog Mix 75/25) 8 units SC DAILY [facility] Last Admin: 12/10/18 08:36 Dose: 8 units Insulin Lispro Protam/Lispro Human (Humalog Mix 75/25) 4 units SC [facility] Last Admin: 12/09/18 22:10 Dose: 4 units Lactic Acid (Lac-Hydrin 12% Lotion (225 G)) 1 applic TOP TID [facility] Last Admin: 12/10/18 08:37 Dose: 1 applic Lactulose (Enulose) 20 gm PO DAILY [facility] Last Admin: 12/05/18 08:35 Dose: 20 gm Ofloxacin (Ocuflox Ophth 0.3%) 1 drop OS TID@0900,1300,2100 [facility] Last Admin: 12/10/18 08:38 Dose: 1 drop Ondansetron HCl (Zofran Tab) 4 mg PO Q6 PRN PRN Reason: Nausea/Vomiting Last Admin: 11/30/18 13:14 Dose: 4 mg Pantoprazole Sodium (Protonix Ec Tab) 40 mg PO DAILY [facility] Last Admin: 12/10/18 08:42 Dose: 40 mg Potassium Chloride (Klor-Con 10) 10 meq PO DAILY [facility] Last Admin: 11/25/18 09:35 Dose: Not Given Prednisolone Acetate (Pred Forte 1% Opht Susp) 1 drop OS DAILY [facility] Last Admin: 12/10/18 08:41 Dose: 1 drop Senna/Docusate Sodium (Senokot S 50 Mg-8.6 Mg) 1 tab PO HS [facility] Last Admin: 12/09/18 22:06 Dose: 1 tab Simethicone (Mylicon Chew Tab) 80 mg PO Q6 PRN PRN Reason: Flatulence Last Admin: 12/09/18 17:09 Dose: 80 mg Tramadol HCl (Ultram) 50 mg PO Q6 PRN PRN Reason: Pain, moderate (4-7) Last Admin: 12/09/18 09:29 Dose: 50 mg - Labs Labs: 12/08/18 05:51 12/08/18 05:51 - Constitutional Appears: Non-toxic, No Acute Distress - Head Exam Head Exam: ATRAUMATIC, NORMAL INSPECTION - Eye Exam Eye Exam: EOMI - ENT Exam ENT Exam: Mucous Membranes Moist - Respiratory Exam Respiratory Exam: NORMAL BREATHING PATTERN - Cardiovascular Exam Cardiovascular Exam: REGULAR RHYTHM - GI/Abdominal Exam GI & Abdominal Exam: absent: Guarding - Extremities Exam Extremities Exam: absent: Calf Tenderness - Neurological Exam Neurological Exam: Alert, CN II-XII Intact - Psychiatric Exam Psychiatric exam: Normal Affect - Skin Skin Exam: Warm (carmen left hip in two regions for ORIF) Assessment and Plan - Assessment and Plan (Free Text) Assessment: Angy Yip, born 1940 who has been admitted to [facility] after a fall with resultant left hip fracture. S/P ORIF by Dr Mock. I have removed the carmen without incidence. well tolerated she has had significant family training to this point and is set for d/c home pain is controlled no GI issue follow up with surgeon and PMD
== END 2018-12-10 11:40 | disposition home or self-care (01) | DRG 560 ==
PROVIDERS: ADMIT Internal Medicine; ATTEND Internal Medicine
PROC: F07Z9FZ Gait Training/Functional Ambulation Treatment using Assistive, Adaptive, Supportive or Protective Equipment (ICD-10-PCS; principal; 2018-11-24)
PROC: F08Z4FZ Home Management Treatment using Assistive, Adaptive, Supportive or Protective Equipment (ICD-10-PCS; 2018-11-24)
PROC: F07L6FZ Therapeutic Exercise Treatment of Musculoskeletal System - Lower Back / Lower Extremity using Assistive, Adaptive, Supportive or Protective Equipment (ICD-10-PCS; 2018-11-24)
PROC: 3E0234Z Introduction of Serum, Toxoid and Vaccine into Muscle, Percutaneous Approach (ICD-10-PCS; 2018-11-24)
DX: S72.142D Displaced intertrochanteric fracture of left femur, subsequent encounter for closed fracture with routine healing (principal); D62 Acute posthemorrhagic anemia; W19.XXXD Unspecified fall, subsequent encounter; E11.22 Type 2 diabetes mellitus with diabetic chronic kidney disease; E11.319 Type 2 diabetes mellitus with unspecified diabetic retinopathy without macular edema; I12.9 Hypertensive chronic kidney disease with stage 1 through stage 4 chronic kidney disease, or unspecified chronic kidney disease; N18.9 Chronic kidney disease, unspecified; K21.9 Gastro-esophageal reflux disease without esophagitis; H54.62 Unqualified visual loss, left eye, normal vision right eye; Z23 Encounter for immunization; Z79.4 Long term (current) use of insulin; Z87.440 Personal history of urinary (tract) infections; Z85.3 Personal history of malignant neoplasm of breast; Z90.11 Acquired absence of right breast and nipple